=== PATIENT | female | born 1965 | race Caucasian/White ===

== ENCOUNTER 2018-11-11 02:03 | Emergency (ER) | payer BC ==
--- NOTE | 2018-11-11 02:51 | ER ---
Nurse's Notes [facility] Name: Mary Casas Age: 53 yrs Sex: Female : 1965 Arrival Date: 11/11/2018 Time: 02:04 Bed 16 Private MD: Brandon Botello V Diagnosis: Laceration of extensor muscle, fascia and tendon of left thumb at wrist and hand level Presentation: 11/11 02:07 Presenting complaint: Patient states: she tripped walking up her driveway and fell with aa1 a bottle in her hand and cut the top of her L thumb. Laceration noted with bleeding controlled. Transition of care: patient was not received from another setting of care. Complicating Factors: There are no complicating factors for this patient. Onset of symptoms was November 11, 2018. Risk Assessment: Do you want to hurt yourself or someone else? Patient reports no desire to harm self or others. Initial Sepsis Screen: Does the patient meet any 2 criteria? No. Patient's initial sepsis screen is negative. Does the patient have a suspected source of infection? No. Patient's initial sepsis screen is negative. Care prior to arrival: None. 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 - Social history:: Smoking status: Patient/guardian denies using tobacco, Patient uses alcohol, only on a social basis. - Ebola Screening: : No symptoms or risks identified at this time. Screenin:10 Abuse screen: Denies threats or abuse. Denies injuries from another. Nutritional aa1 screening: No deficits noted. Tuberculosis screening: No symptoms or risk factors identified. Fall Risk None identified. Assessment: 02:10 General: Appears in no apparent distress. comfortable, Behavior is cooperative, aa1 appropriate for age, anxious, crying. Pain: Denies pain. Neuro: Level of Consciousness is awake, alert, obeys commands, Oriented to person, place, time, situation. Respiratory: Airway is patent Respiratory effort is even, unlabored, Respiratory pattern is regular, symmetrical. GI: No signs and/or symptoms were reported involving the gastrointestinal system. : No signs and/or symptoms were reported regarding the genitourinary system. EENT: No signs and/or symptoms were reported regarding the EENT system. Derm: Skin is intact, is healthy with good turgor, Skin is pink, warm \T\ dry. Musculoskeletal: Circulation, motion, and sensation intact. Capillary refill < 3 seconds, Range of motion: intact in all extremities. Injury Description: Laceration sustained to dorsal aspect of proximal phalanx of left thumb is clean, 2.6 to 7.5 cm long, not bleeding. 03:12 Reassessment: Patient appears in no apparent distress at this time. Patient is alert, aa1 oriented x 3, equal unlabored respirations, skin warm/dry/pink. Discussed d/c \T\ f/u instructions with pt; denies questions or concerns at this time. Ambulatory to lobby with steady gait Patient states feeling better. Vital Signs: 02:07 BP 154 / 93; Pulse 93; Resp 20; Temp 98.4; Pulse Ox 97% on R/A; Weight 83.91 kg; Height aa1 5 ft. 4 in. (162.56 cm); Pain 0/10; 03:12 BP 140 / 71; Pulse 87; Resp 18; Pulse Ox 99% on R/A; Pain 0/10; aa1 02:07 Body Mass Index 31.75 (83.91 kg, 162.56 cm) aa1 ED Course: 02:04 Patient arrived in ED. es 02:05 Brandon Botello MD is Private Physician. es 02:07 Arm band placed on right wrist. Patient placed in an exam room, on a stretcher. aa1 02:10 Patient has correct armband on for positive identification. Bed in low position. Call aa1 light in reach. Pulse ox on. NIBP on. 02:22 Arie Mckeon MD is Attending Physician. tw4 02:25 Tere Villalobos, EHSAN is Primary Nurse. aa1 02:31 Triage completed. aa1 02:34 Hand Right 2 View XRAY In Process Unspecified. EDMS 02:49 Brandon Botello MD is Referral Physician. tw4 03:00 Assist provider with laceration repair on dorsal aspect of proximal phalanx of left aa1 thumb that was between 2.6 to 7.5 cm using Steri-strips. Set up tray. Performed by Arie Mckeon MD Patient tolerated well. Patient did not have IV access during this emergency room visit. Administered Medications: No medications were administered Outcome: 02:50 Discharge ordered by . tw4 03:15 Discharged to home ambulatory, with friend. aa1 03:15 Condition: good 03:15 Discharge instructions given to patient, Instructed on discharge instructions, follow up and referral plans. wound care, Demonstrated understanding of instructions, follow-up care, wound care. 03:15 Patient left the ED. aa1 Signatures: Dispatcher [employer] Tere Green, RN RN aa1 Marsha Zabala Terrence, MD MD tw4
--- NOTE | 2018-11-11 02:52 | EDPHYS ---
Physician Documentation [facility] Name: Mary Casas Age: 53 yrs Sex: Female : 1965 Arrival Date: 11/11/2018 Time: 02:04 Bed 16 Private MD: Brandon Botello V ED Physician Arie Mckeon HPI: 11/11 04:08 This 53 yrs old Female presents to ER via Ambulatory with complaints of tw4 Laceration To Hand. 04:08 The patient has a laceration related to: falling from a standing position, occurred on tw4 a street or driveway. The laceration(s) is(are) located on the palmar aspect of proximal phalanx of left thumb. Onset: The symptoms/episode began/occurred today. Associated signs and symptoms: The patient has no apparent associated signs or symptoms. The patient has not experienced similar symptoms in the past. 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 - Social history:: Smoking status: Patient/guardian denies using tobacco, Patient uses alcohol, only on a social basis. - Ebola Screening: : No symptoms or risks identified at this time. ROS: 04:08 Constitutional: Negative for fever, chills, and weight loss, Eyes: Negative for injury, tw4 pain, redness, and discharge, Cardiovascular: Negative for chest pain, palpitations, and edema, Respiratory: Negative for shortness of breath, cough, wheezing, and pleuritic chest pain, Abdomen/GI: Negative for abdominal pain, nausea, vomiting, diarrhea, and constipation, Back: Negative for injury and pain. 04:08 MS/extremity: Positive for laceration. Exam: 04:08 Constitutional: This is a well developed, well nourished patient who is awake, alert, tw4 and in no acute distress. Head/Face: Normocephalic, atraumatic. Chest/axilla: Normal chest wall appearance and motion. Nontender with no deformity. No lesions are appreciated. Cardiovascular: Regular rate and rhythm with a normal S1 and S2. No gallops, murmurs, or rubs. Normal PMI, no JVD. No pulse deficits. Respiratory: Lungs have equal breath sounds bilaterally, clear to auscultation and percussion. No rales, rhonchi or wheezes noted. No increased work of breathing, no retractions or nasal flaring. Abdomen/GI: Soft, non-tender, with normal bowel sounds. No distension or tympany. No guarding or rebound. No evidence of tenderness throughout. Neuro: Awake and alert, GCS 15, oriented to person, place, time, and situation. Cranial nerves II-XII grossly intact. Motor strength 5/5 in all extremities. Sensory grossly intact. Cerebellar exam normal. Normal gait. 04:08 Musculoskeletal/extremity: Extremities: noted in the palmar aspect of proximal phalanx of left thumb: laceration. Vital Signs: 02:07 BP 154 / 93; Pulse 93; Resp 20; Temp 98.4; Pulse Ox 97% on R/A; Weight 83.91 kg; Height aa1 5 ft. 4 in. (162.56 cm); Pain 0/10; 03:12 BP 140 / 71; Pulse 87; Resp 18; Pulse Ox 99% on R/A; Pain 0/10; aa1 02:07 Body Mass Index 31.75 (83.91 kg, 162.56 cm) aa1 MDM: 02:22 Patient medically screened. tw4 04:08 Differential diagnosis: superficial laceration. Data reviewed: vital signs, nurses tw4 notes. Data interpreted: Pulse oximetry: Interpretation: normal. Counseling: I had a detailed discussion with the patient and/or guardian regarding: the historical points, exam findings, and any diagnostic results supporting the discharge/admit diagnosis. Special discussion: I discussed with the patient/guardian in detail that at this point there is no indication for admission to the hospital. It is understood, however, that if the symptoms persist or worsen the patient needs to return immediately for re-evaluation. 11/11 02:17 Order name: Hand Right 2 View XRAY tw4 Administered Medications: No medications were administered Disposition: 11/11/18 02:50 Discharged to Home. Impression: Laceration of extensor muscle, fascia and tendon of left thumb at wrist and hand level. - Condition is Stable. - Discharge Instructions: Laceration Care, Adult. - Medication Reconciliation Form, Thank You Letter, Antibiotic Education, Prescription Opioid Use form. - Follow up: Brandon Botello MD; When: Upon discharge from the Emergency Department; Reason: If symptoms return, Recheck today's complaints, Continuance of care. - Problem is new. - Symptoms have improved. Signatures: Dispatcher [employer] Tere Green RN RN aa1 Arie Mckeon MD MD tw4 Corrections: (The following items were deleted from the chart) 03:15 02:50 11/11/2018 02:50 Discharged to Home. Impression: Laceration of extensor muscle, aa1 fascia and tendon of left thumb at wrist and hand level. Condition is Stable. Forms are Medication Reconciliation Form, Thank You Letter, Antibiotic Education, Prescription Opioid Use. Follow up: Brandon Botello; When: Upon discharge from the Emergency Department; Reason: If symptoms return, Recheck today's complaints, Continuance of care. Problem is new. Symptoms have improved. tw4
--- NOTE | 2018-11-11 11:39 | RAD REPORT ---
EXAM DESCRIPTION: RAD - Hand Right 2 View - 11/11/2018 2:33 am CLINICAL HISTORY: Left hand left hand injury FINDINGS: Bandage overlies the left thumb obscuring detail somewhat. No fracture or dislocation seen. Limited two-view series
== END 2018-11-11 03:15 | disposition home or self-care (01) ==
LOC: ER 02:03
PROC: 0JQK0ZZ Repair Left Hand Subcutaneous Tissue and Fascia, Open Approach (ICD-10-PCS; principal; 2018-11-11)
DX: S66.222A Laceration of extensor muscle, fascia and tendon of left thumb at wrist and hand level, initial encounter (principal); W19.XXXA Unspecified fall, initial encounter; Y93.9 Activity, unspecified; Y92.410 Unspecified street and highway as the place of occurrence of the external cause; E03.9 Hypothyroidism, unspecified; Z88.5 Allergy status to narcotic agent
CPT/HCPCS: 99283

== ENCOUNTER 2019-08-31 19:31 | Emergency (ER) | payer BC, SELFPAY ==
--- OUTSIDE RECORDS SUMMARY | 2019-08-31 19:34 | XMS REPORT | Continuity of Care Document ---
:1965 Author Organization [facility] t Address [address] [place] [address] Care Team Providers Name Role Phone Unavailable Unavailable Unavailable Payers Payer Name Policy Type Policy Number Effective Date Expiration Date S ource Problems This patient has no known problems. Allergies, Adverse Reactions, Alerts Allergy Allergy Status Severity Reaction(s) Onset Inactive Treating Comm ents Source Name Type Date Date Clinician No Known DA Active U 2018-03 SON Allergjimmy 2-13 Tila s 00:00: d 00 [facility] Medications This patient has no known medications. Procedures This patient has no known procedures. Results Test Description Test Time Test Comments Results Result Comments Source SURG 2019-03-18 11:14:00 RUN DATE: 03/18/19 SON [place] - TRACY PAGE 1 RUN TIME: 1114 Specimen Inquiry RUN USER: INTERFACE PATIENT: MAURILIO GORDON LOC: YANIRA Mathews #: [id number] AGE/SX: 53/F [facility]: Jessica Kumar : [birth year] BED: 1 DIS: 03/15/19 STATUS: DIS IN TLOC: SPEC #: [id number] RECD: 03/14/19 STATUS: WAYNE REQ #: [id number] FABI: 03/13/[address]: Jessica Kumar MD ENTERED: 03/14/19 SP TYPE: SURG OTHR DR: ORDERED: SURG PATH LVL 5 HISTOLOGY: TISSUE ID BLK PCS LORA LEV PROCEDURE DISPOSITION ____ ___ ___ ___ CERVIX A 1 1 PROCEDURES: SURG PATH LVL 5 (03/14/19-1509) TISSUES: A. CERVIX - CERVIX, UTERUS, BILATERAL FALLOPIAN TUBES BILATERAL OVARIES CLINICAL HISTORY EXCESSIVE/FREQ/IRREG MENSES-N92.1; LEIOMYOMA-D25.1 CPT CODES CPT CODE(S): 36171 , , , , , , FINAL DIAGNOSIS Uterus, bilateral fallopian tubes and ovaries, hysterectomy and bilateral salpingo-oophorectom y: ECTOCERVIX, NEGATIVE FOR VIRAL CYTOPATHIC EFFECT ENDOCERVIX WITH CHRONIC INFLAMMATION ENDOMETRIUM, INACTIVE AND ULCERATED MULTIPLE INTRAMURAL AND SUBSEROSAL LEIOMYOMATA FALLOPIAN TUBE WITH SIMPLE PARATUBAL CYST BILATERAL OVARIES WITH FOLLICULAR CYSTS, ONE WITH AN OVARIAN LEIOMYOMA NEGATIVE FOR MALIGNANCY GROSS DESCRIPTION Cervix, uterus, bilateral fallopian tubes and bilateral ovaries. Received in formalin is a 737.7-gram hysterectomy specimen and include a detached cervix (3.7 x 2.5 x 2.2 cm, 14.4 grams), an enlarged, deformed uterine corpus (12.0 x 11.0 x 9.0 cm, 503 grams), a separate large chin nodule/fibroid (9.0 x 6.5 x 5.7 cm, 204.1 grams), a separate longer segment of fallopian tube (5.0 x 1.0 x 0.8 cm, 2.4 grams), a separate short segment of fallopian tube (3.5 x 1.2 x 0.8 cm, 1.9 grams), a separate larger ovary (3.2 x 2.5 x 1.7 cm, 7.9 grams), and a separate smaller ovary (2.5 x 2.0 x 1.3 cm, 4.0 grams). The serosal surface is chin-brown, generally smooth and glistening. The CONTINUED ON NEXT PAGE RUN DATE: 03/18/19 [facility] PAGE 2 RUN TIME: 1114 Specimen Inquiry RUN USER: INTERFACE SPEC #: [id number] PATIENT: MAURILIO GORDON #[id number] (Continued)--------- --- GROSS DESCRIPTION (Continued) amputated cervix has a chin exocervix and a pinpoint os, 0.2 cm. The uterine corpus is markedly enlarged and distorted. The endometrial cavity measures 2.5 cm from cornu to cornu by 5.0 cm in length with a slightly hemorrhagic endometrium, 0.2 cm. The myometrium is maximally 5.0 cm in thickness and contains approximately 10-15 intramural and subserosal nodules, the largest measures 4.5 cm in greatest dimension. Except for a few nodules with focal areas with slightly gritty cut-surfaces, the majority of the nodules have homogeneous dense chin fibrous cut surfaces with the whorled appearance and without hemorrhage or necrosis. The separate large nodule/fibroid is serially sectioned and the cut surface is dense, rubbery to firm, chin with the whorled appearance and without hemorrhage or necrosis. The longer segment of fallopian tube is slightly tortuous and has a patent lumen and is grossly unremarkable. The shorter segment of fallopian tube has a patent lumen and an adjacent paratubal cyst, 0.6 cm filled with translucent non-viscous fluid and is otherwise unremarkable. The larger detached ovary contains a few simple cysts, the largest measures 1.5 cm in greatest dimension, filled with translucent non-viscous fluid and a dense white-chin cyst, 1.2 cm in greatest dimension. The smaller detached ovary contains a few simple cysts, the largest measures 1.2 cm in greatest dimension, filled with translucent non-viscous fluid and a dense white-chin cyst, 1.0 cm in greatest dimension. ba/nr Section code: A1-A2 Cervix A3-A5 Anterior endometrium/myometri um A6-A7 Posterior endometrium/myometri um A8-A9 Intramural nodules with focal gritty areas A10-A17 Multiple intramural and subserosal nodules A18-A20 Separate large nodule/fibroid A21-A22 Longer fallopian tube and fimbria A23-A24 [place] fallopian tube and fimbria A25-A26 Larger ovary A27-A28 Smaller ovary Grossing performed at [facility] Pathology, [facility] [facility], [address], [place] [address]. [employer] Supervisor: Lane Matson M.D. MICROSCOPIC DESCRIPTION Cervix, uterus, bilateral fallopian tubes and bilateral ovaries. Sections demonstrate unremarkable ectocervix with no evidence of viral cytopathic effect. Chronic inflammation involves the endocervical glands. The endometrium is focally ulcerated with inactive endometrial glands. Multiple intramural leiomyomata are identified, some with ancient change, hyalinization, and calcification. Bilateral fallopian tubes have unremarkable fimbria and CONTINUED ON NEXT PAGE RUN DATE: 03/18/19 [facility] PAGE 3 RUN TIME: 1114 Specimen Inquiry RUN USER: INTERFACE SPEC #: [id number]:[id number] PATIENT: HEIDIMAURILIO #[id number] (Continued)--------- --- MICROSCOPIC DESCRIPTION (Continued) lumina. A simple paratubal cyst is identified on one tube. Both ovaries demonstrate follicular cysts, one ovary demonstrates an ovarian leiomyoma. There is no evidence of malignancy. /cm Signed SIGNATURE ON FILE Ruddy Mosley 03/18/19 1114 END OF REPORT GLUCOSE BEDSIDE TESTING 2019-03-15 17:10:00 Test Item Value Reference Range Interpretation Comme nts GLUCOSE BEDSIDE TESTING (test code = GLUBED) 117 mg/dL 70-110 H GLUCOSE BEDSIDE [id number] 07:15:00 Test Item Value Reference Range Interpretation Comments GLUCOSE BEDSIDE TESTING (test code 136 mg/dL 70-110 H = GLUBED) GLUCOSE BEDSIDE [id number] 00:32:00 Test Item Value Reference Range Interpretation Comments GLUCOSE BEDSIDE TESTING (test code 125 mg/dL 70-110 H = GLUBED) GLUCOSE BEDSIDE [id number] 16:30:00 Test Item Value Reference Range Interpretation Comments GLUCOSE BEDSIDE TESTING (test code 124 mg/dL 70-110 H = GLUBED) GLUCOSE BEDSIDE [id number] 11:29:00 Test Item Value Reference Range Interpretation Comments GLUCOSE BEDSIDE TESTING (test code 129 mg/dL 70-110 H = GLUBED) GLUCOSE BEDSIDE [id number] 07:25:00 Test Item Value Reference Range Interpretation Comments GLUCOSE BEDSIDE TESTING (test code 149 mg/dL 70-110 H = GLUBED) CBC W/AUTO [id number] 07:04:00 Test Item Value Reference Range Interpretation Comments WHITE BLOOD CELL (test code = 13.5 K/mm3 3.5-11.0 H WBC) RED BLOOD CELL (test code = RBC) 3.63 M/mm3 4.70-6.10 L HEMOGLOBIN (test code = HGB) 10.4 G/DL 10.4-14.9 N HEMATOCRIT (test code = HCT) 33.2 % 31.5-44.1 N MEAN CELL VOLUME (test code = 91.5 Fl 84.5-98.6 N MCV) MEAN CELL HGB (test code = MCH) 28.7 pg 27.0-34.2 N MEAN CELL HGB CONCETRATION (test 31.3 G/DL 31.5-34.0 L code = MCHC) RED CELL DISTRIBUTION WIDTH (test 14.8 SD 11.5-14.5 H code = RDW) PLATELET COUNT (test code = PLT) 312.0 K/mm3 150-450 N MEAN PLATELET VOLUME (test code = 10.50 fL 7.0-10.5 N MPV) NEUTROPHIL % (test code = NT%) 70.2 % 40-76 N LYMPHOCYTE % (test code = LY%) 20.2 % 20.5-51.1 L MONOCYTE % (test code = MO%) 9.2 % 1.7-9.3 N EOSINOPHIL % (test code = EO%) 0.2 % 0.0-6.0 N BASOPHIL % (test code = BA%) 0.2 % 0.0-2.0 N NEUTROPHIL # (test code = NT#) 9.48 K/mm3 1.8-7.6 H LYMPHOCYTE # (test code = LY#) 2.7 K/mm3 0.6-3.2 N MONOCYTE # (test code = MO#) 1.2 K/mm3 0.3-1.1 H EOSINOPHIL # (test code = EO#) 0.0 K/mm3 0.0-0.4 N BASOPHIL # (test code = BA#) 0.0 K/mm3 0.0-0.1 N MANUAL DIFF REQUIRED (test code = NO DIFF/SCN CRITERIA MDIFF) GLUCOSE BEDSIDE [id number] 02:41:00 Test Item Value Reference Range Interpretation Comments GLUCOSE BEDSIDE TESTING (test code 113 mg/dL 70-110 H = GLUBED) GLUCOSE BEDSIDE [id number] 20:36:00 Test Item Value Reference Range Interpretation Comments GLUCOSE BEDSIDE TESTING (test code 158 mg/dL 70-110 H = GLUBED) GLUCOSE BEDSIDE [id number] 15:38:00 Test Item Value Reference Range Interpretation Comments GLUCOSE BEDSIDE TESTING (test code 220 mg/dL 70-110 H = GLUBED) GLUCOSE BEDSIDE [id number] 06:42:00 Test Item Value Reference Range Interpretation Comments GLUCOSE BEDSIDE TESTING (test code 229 mg/dL 70-110 H = GLUBED) URINALYSIS [id number] 15:44:00 Test Item Value Reference Range Interpretation Comments UA GLUCOSE DIPSTICK (test NEGATIVE mg/dL NEG code = DGLUU) UA BILIRUBIN DIPSTICK (test NEGATIVE mg/dL NEG code = BILU) UA KETONE DIPSTICK (test code NEGATIVE mg/dL NEG = KETU) UA SPECIFIC GRAVITY (test 1.010 SG 1.005-1.030 code = SGU) UA BLOOD DIPSTICK (test code NEGATIVE mg/DL NEG = LUBA) UA PH DIPSTICK (test code = 7.0 pH UNITS 5.0-7.0 MANOJ) UA PROTEIN DIPSTICK (test NEGATIVE mg/dL NEG code = PROU) UA UROBILINIOGEN DIPSTICK 0.2 mg/dL <2.0 (test code = URO) UA NITRITE DIPSTICK (test NEGATIVE SCREEN NEG code = FAIZA) UA LEUKOCYTE ESTERASE TRACE Leuk/mcL NEGATIVE A DIPSTICK (test code = LEUU) Urine Specimen Type: Clean CatchUR HCG [id number] 15:44:00 Test Item Value Reference Range Interpretation Comments UR HCG QUAL (test code = HCGQLU) NEGATIVE NEGATIVE Urine Specimen Type: Clean CatchURINALYSIS [id number] 15:01:00 Test Item Value Reference Range Interpretation Comments UA GLUCOSE DIPSTICK (test NEGATIVE mg/dL NEG code = DGLUU) UA BILIRUBIN DIPSTICK (test NEGATIVE mg/dL NEG code = BILU) UA KETONE DIPSTICK (test code NEGATIVE mg/dL NEG = KETU) UA SPECIFIC GRAVITY (test 1.010 SG 1.005-1.030 code = SGU) UA BLOOD DIPSTICK (test code NEGATIVE mg/DL NEG = LUBA) UA PH DIPSTICK (test code = 7.0 pH UNITS 5.0-7.0 MANOJ) UA PROTEIN DIPSTICK (test NEGATIVE mg/dL NEG code = PROU) UA UROBILINIOGEN DIPSTICK 0.2 mg/dL <2.0 (test code = URO) UA NITRITE DIPSTICK (test NEGATIVE SCREEN NEG code = FAIZA) UA LEUKOCYTE ESTERASE TRACE Leuk/mcL NEGATIVE A DIPSTICK (test code = LEUU) Urine Specimen Type: Clean CatchUR HCG [id number] 15:01:00 Test Item Value Reference Range Interpretation Comments UR HCG QUAL (test code = HCGQLU) NEGATIVE Urine Specimen Type: Clean CatchCBC W/AUTO [id number] 14:33:00 Test Item Value Reference Range Interpretation Comments WHITE BLOOD CELL (test code = 10.6 K/mm3 3.5-11.0 N WBC) RED BLOOD CELL (test code = RBC) 4.44 M/mm3 4.70-6.10 L HEMOGLOBIN (test code = HGB) 12.9 G/DL 10.4-14.9 N HEMATOCRIT (test code = HCT) 40.1 % 31.5-44.1 N MEAN CELL VOLUME (test code = 90.3 Fl 84.5-98.6 N MCV) MEAN CELL HGB (test code = MCH) 29.1 pg 27.0-34.2 N MEAN CELL HGB CONCETRATION (test 32.2 G/DL 31.5-34.0 N code = MCHC) RED CELL DISTRIBUTION WIDTH (test 14.5 SD 11.5-14.5 N code = RDW) PLATELET COUNT (test code = PLT) 389.0 K/mm3 150-450 N MEAN PLATELET VOLUME (test code = 9.70 fL 7.0-10.5 N MPV) NEUTROPHIL % (test code = NT%) 55.2 % 40-76 N LYMPHOCYTE % (test code = LY%) 35.7 % 20.5-51.1 N MONOCYTE % (test code = MO%) 6.4 % 1.7-9.3 N EOSINOPHIL % (test code = EO%) 2.5 % 0.0-6.0 N BASOPHIL % (test code = BA%) 0.2 % 0.0-2.0 N NEUTROPHIL # (test code = NT#) 5.86 K/mm3 1.8-7.6 N LYMPHOCYTE # (test code = LY#) 3.8 K/mm3 0.6-3.2 H MONOCYTE # (test code = MO#) 0.7 K/mm3 0.3-1.1 N EOSINOPHIL # (test code = EO#) 0.3 K/mm3 0.0-0.4 N BASOPHIL # (test code = BA#) 0.0 K/mm3 0.0-0.1 N MANUAL DIFF REQUIRED (test code = NO DIFF/SCN CRITERIA MDIFF)
[2019-08-31] MEDS ORDERED: ONDANSETRON 4 MG/2 ML VIAL ONE (20:28)
[2019-08-31 21:08] LABS: Urine Blood 2+ (NEG); Urine Glucose NEGATIVE (NEG); Urine Protein 1+ (NEG); Urine pH 7.5 (5.0-7.0)
[2019-08-31 21:29] LABS: Absolute Lymphocytes (CBC) 1.3 K/uL (0.7-4.9); Basophils % 0.5 % (0-1.3); Hematocrit 43.3 % (36.0-45.0); Lymphocytes % 14.3 % (15.3-44.8); MPV 8.8 fL (7.6-11.3); RBC Red Blood Cell Count 4.67 M/uL (3.86-4.86)
[2019-08-31 21:55] LABS: ALT/SGPT 34 U/L (12-78); Albumin 3.6 g/dL (3.4-5.0); Alkaline Phosphatase 95 U/L (45-117); BUN Blood Urea Nitrogen 12 mg/dL (7-18); Bicarbonate 31 mmol/L (21-32); Bilirubin Direct < 0.1 mg/dL (0-0.2); Bilirubin Total 0.3 mg/dL (0.2-1.0); Glucose Level 105 mg/dL (74-106); Lipase 97 U/L (73-393); Sodium Level 144 mmol/L (136-145)
[2019-08-31 22:00] LABS: AST/SGOT 24 U/L (15-37); Potassium 3.7 mmol/L (3.5-5.1)
[2019-08-31] MEDS ORDERED: MORPHINE 4 MG/ML SYR ONE (22:34)
--- NOTE | 2019-09-01 01:48 | EDPHYS ---
Physician Documentation [facility] Name: Mary Casas Age: 54 yrs Sex: Female : 1965 Arrival Date: 08/31/2019 Time: 19:33 Bed 18 Private MD: ED Physician Otto Henderson HPI: 08/30 20:21 This 54 yrs old Female presents to ER via Ambulatory with complaints of Pain mh7 On Left Side. 20:21 The patient presents with abdominal pain in the left lower quadrant. Onset: The mh7 symptoms/episode began/occurred just prior to arrival, today. The symptoms do not radiate. Associated signs and symptoms: Pertinent positives: nausea, Pertinent negatives: anorexia, blood in stools, chest pain, constipation, diarrhea, dysuria, fever, headache, hematuria, palpitations, shortness of breath, vaginal discharge, vomiting, vomiting blood. The symptoms are described as intermittent, vague, waxing/waning. Modifying factors: The symptoms are alleviated by nothing, the symptoms are aggravated by nothing. Severity of pain: At its worst the pain was moderate just prior to arrival, today, in the emergency department the pain has improved markedly. Historical: - Allergies: 20:10 Percocet; ll1 20:10 Hydrocodone-Acetaminophen; ll1 - PMHx: 20:10 Hypothyroidism; ll1 - PSHx: 20:10 ; Hysterectomy; Cholecystectomy; ll1 - Immunization history:: Adult Immunizations. - Social history:: Smoking status: Patient denies any tobacco usage or history of. Patient/guardian denies using alcohol, street drugs, tobacco products. ROS: 20:21 Constitutional: Negative for fever, chills, and weight loss, Eyes: Negative for injury, mh7 pain, redness, and discharge, ENT: Negative for injury, pain, and discharge, Neck: Negative for injury, pain, and swelling, Cardiovascular: Negative for chest pain, palpitations, and edema, Respiratory: Negative for shortness of breath, cough, wheezing, and pleuritic chest pain, Back: Negative for injury and pain, : Negative for injury, bleeding, discharge, and swelling, MS/Extremity: Negative for injury and deformity, Skin: Negative for injury, rash, and discoloration, Neuro: Negative for headache, weakness, numbness, tingling, and seizure, Psych: Negative for depression, anxiety, suicide ideation, homicidal ideation, and hallucinations, Allergy/Immunology: Negative for hives, rash, and allergies, Endocrine: Negative for neck swelling, polydipsia, polyuria, polyphagia, and marked weight changes, Hematologic/Lymphatic: Negative for swollen nodes, abnormal bleeding, and unusual bruising. Exam: 20:21 Constitutional: This is a well developed, well nourished patient who is awake, alert, mh7 and in no acute distress. Head/Face: Normocephalic, atraumatic. Eyes: Pupils equal round and reactive to light, extra-ocular motions intact. Lids and lashes normal. Conjunctiva and sclera are non-icteric and not injected. Cornea within normal limits. Periorbital areas with no swelling, redness, or edema. ENT: Nares patent. No nasal discharge, no septal abnormalities noted. Tympanic membranes are normal and external auditory canals are clear. Oropharynx with no redness, swelling, or masses, exudates, or evidence of obstruction, uvula midline. Mucous membranes moist. Neck: Trachea midline, no thyromegaly or masses palpated, and no cervical lymphadenopathy. Supple, full range of motion without nuchal rigidity, or vertebral point tenderness. No Meningismus. Chest/axilla: Normal chest wall appearance and motion. Nontender with no deformity. No lesions are appreciated. Cardiovascular: Regular rate and rhythm with a normal S1 and S2. No gallops, murmurs, or rubs. Normal PMI, no JVD. No pulse deficits. Respiratory: Lungs have equal breath sounds bilaterally, clear to auscultation and percussion. No rales, rhonchi or wheezes noted. No increased work of breathing, no retractions or nasal flaring. 20:21 Back: No spinal tenderness. No costovertebral tenderness. Full range of motion. Skin: Warm, dry with normal turgor. Normal color with no rashes, no lesions, and no evidence of cellulitis. MS/ Extremity: Pulses equal, no cyanosis. Neurovascular intact. Full, normal range of motion. Neuro: Awake and alert, GCS 15, oriented to person, place, time, and situation. Cranial nerves II-XII grossly intact. Motor strength 5/5 in all extremities. Sensory grossly intact. Cerebellar exam normal. Normal gait. Psych: Awake, alert, with orientation to person, place and time. Behavior, mood, and affect are within normal limits. 20:21 Abdomen/GI: Inspection: abdomen appears normal, Bowel sounds: normal, in all quadrants, Palpation: moderate abdominal tenderness, in the left lower quadrant, Rectal exam: the exam is deferred, because of patient request, Indicators: McBurney's point is not tender, Hampton's sign is negative, Rovsing's sign is negative, Obturator sign is negative, Psoas sign is negative, Liver: no appreciated palpable abnormalities, Hernia: not appreciated. 20:21 : CVA tenderness, is absent, Pelvic Exam: The exam is refused by the patient/guardian. The risks and consequences are understood by the patient, Bladder: is normal, Rectal exam: is refused by patient or guardian. Vital Signs: 20:07 BP 143 / 79; Pulse 70; Resp 17; Temp 98.5; Pulse Ox 99% ; Pain 2/10; ll1 20:30 BP 126 / 80; Pulse 68; Resp 17; Pulse Ox 98% ; ll1 20:48 Weight 21.77 kg; ll1 21:18 BP 130 / 65; Pulse 71; Resp 17; Pulse Ox 99% ; ll1 22:00 BP 136 / 73; Pulse 74; Resp 17; Pulse Ox 98% ; ll1 23:20 BP 124 / 71; Pulse 76; Resp 16; Pulse Ox 98% ; ll1 07 01:00 BP 122 / 65; Pulse 72; Resp 16; Pulse Ox 93% ; vc 01:53 BP 111 / 92; Pulse 77; Resp 17; Pulse Ox 100% ; vc MDM: 08/30 20:14 Patient medically screened. [facility] 08/31 01:42 Differential diagnosis: bowel obstruction, diverticulitis, non-specific abd pain, 7 Pyelonephritis, Ureterolithiasis, urinary tract infection. Data reviewed: vital signs, nurses notes, lab test result(s), CBC, electrolytes, urinalysis, radiologic studies, CT scan. Data interpreted: classroom monitor: rate is 76 beats/min, rhythm is normal sinus rhythm, regular, Interpretation: normal rate, normal rhythm, Pulse oximetry: on room air is 98 %. Interpretation: normal. Counseling: I had a detailed discussion with the patient and/or guardian regarding: the historical points, exam findings, and any diagnostic results supporting the discharge/admit diagnosis, lab results, radiology results. Response to treatment: the patient's symptoms have resolved after treatment, the patient's blood pressure is in an acceptable range, mental status has returned to baseline, the patient no longer shows bradycardia, the patient is not short of breath, the patient is not tachycardic, the patient's pain is gone, the patient's temperature has normalized. 01:51 Refusal of service: The patient/guardian displays adequate decision making capability [facility] and despite a detailed discussion of alternatives, benefits, risks, and consequences refuses: Admission to the hospital for further work-up and treatment, Transfer. 08/30 20:15 Order name: Basic Metabolic Panel; Complete Time: 22:08 [facility] 08/30 20:15 Order name: CBC with Diff; Complete Time: 22: [facility] 08/30 20:15 Order name: Hepatic Function; Complete Time: 22:08 [facility] 08/30 20:15 Order name: Lipase; Complete Time: 22:08 [facility] 08/30 20:29 Order name: Urine Dipstick--Ancillary (enter results); Complete Time: 21:35 [facility] 08/30 20:15 Order name: IV Saline Lock; Complete Time: 00:19 [facility] 08/30 20:15 Order name: Labs collected and sent; Complete Time: 00:19 [facility] 08/30 20:29 Order name: Urine --Ancillary (enter results); Complete Time: 21:35 [facility] 08/30 22:09 Order name: CT Abd/Pelvis - IV Contrast Only [facility] 08/31 01:40 Order name: Urine Culture [facility] Administered Medications: 08/30 22:37 Drug: morphine 4 mg {Note: 2mg SIVP given 2235 2mg SIVP given at 2255.} Route: IVP; 1 Site: right antecubital; 22:55 Follow up: Response: No adverse reaction; RASS: Alert and Calm (0) 1 23:43 Follow up: Response: No adverse reaction; Pain is decreased; RASS: Alert and Calm (0) [facility] 22:38 Drug: Zofran (Ondansetron) 4 mg Route: IVP; Site: right antecubital; 1 22:57 Follow up: Response: No adverse reaction; RASS: Alert and Calm (0) [facility] 08/31 01:52 Drug: LevaQUIN 500 mg Route: PO; vc 02:18 Follow up: Response: No adverse reaction vc Disposition: 09/01/19 01:46 Discharged to Home. Impression: Ureterolithiasis, Urinary tract infection, site not specified. - Condition is Stable. - Discharge Instructions: Kidney Stones, [id number], Urinary Tract Infection, Adult, [id number]. - Prescriptions for Zofran ODT 4 mg Oral tablet,disintegrating - place 1 tablet by TRANSLINGUAL route every 8 hours As needed; 10 tablet. ketorolac 10 mg Oral tablet - take 1 tablet by ORAL route every 8 hours As needed not to exceed 40 mg in 24hrs; 15 tablet. Levaquin 500 mg Oral Tablet - take 1 tablet by ORAL route once daily for 10 days; 10 tablet. Flomax 0.4 mg Oral Capsule, Sust. Release 24 hr - take 1 capsule by ORAL route once daily 1/2 hour following the same meal each day; 30 capsule. - Medication Reconciliation Form, Thank You Letter, Antibiotic Education, Prescription Opioid Use form. - Follow up: Private Physician; When: 1 - 2 days; Reason: Worsening of condition, Recheck today's complaints, Re-evaluation by your physician. Follow up: Fifi Jones MD; When: 1 - 2 days; Reason: Worsening of condition, Recheck today's complaints. - Problem is new. - Symptoms have improved. Signatures: Dispatcher [employer] [facility] Sophia Dunn RN RN vc Lewis, Lynsay, RN RN ll1 Otto Henderson MD MD mh7 Corrections: (The following items were deleted from the chart) 08/30 22:21 20:17 TEST, SERUM+SC.LAB.BRZ ordered. [facility] 08/31 02:18 01:46 09/01/2019 01:46 Discharged to Home. Impression: Ureterolithiasis; Urinary tract vc infection, site not specified. Condition is Stable. Forms are Medication Reconciliation Form, Thank You Letter, Antibiotic Education, Prescription Opioid Use. Follow up: Private Physician; When: 1 - 2 days; Reason: Worsening of condition, Recheck today's complaints, Re-evaluation by your physician. Follow up: Fifi Jones; When: 1 - 2 days; Reason: Worsening of condition, Recheck today's complaints. Problem is new. Symptoms have improved. mh7
--- NOTE | 2019-09-01 01:48 | ER ---
Nurse's Notes [facility] Name: Mary Casas Age: 54 yrs Sex: Female : 1965 Arrival Date: 08/31/2019 Time: 19:33 Bed 18 Private MD: Diagnosis: Ureterolithiasis;Urinary tract infection, site not specified Presentation: 08/30 20:07 Chief complaint: Patient states: Sudden onset of left sided abdominal pain today. Had ll1 nausea and sweating when pain began. Denies urinary symptoms. No fever. Coronavirus screen: Proceed with normal triage. Patient denies a cough. Patient denies shortness of breath or difficulty breathing. Patient denies measured and/or subjective temperature greater than 100.4F prior to today's visit. Patient denies travel on a cruise ship or to a country the [facility] currently lists as an affected area. Patient denies contact with known and/or suspected case of COVID-19. Ebola Screen: Patient denies travel to an Ebola-affected area in the 21 days before illness onset. Initial Sepsis Screen: Does the patient meet any 2 criteria? No. Patient's initial sepsis screen is negative. Risk Assessment: Do you want to hurt yourself or someone else? Patient reports no desire to harm self or others. Onset of symptoms was August 31, 2019. 20:07 Method Of Arrival: Ambulatory ll1 20:07 Acuity: ROSINA 3 ll1 Historical: - Allergies: 20:10 Percocet; ll1 20:10 Hydrocodone-Acetaminophen; ll1 - PMHx: 20:10 Hypothyroidism; ll1 - PSHx: 20:10 ; Hysterectomy; Cholecystectomy; ll1 - Immunization history:: Adult Immunizations. - Social history:: Smoking status: Patient denies any tobacco usage or history of. Patient/guardian denies using alcohol, street drugs, tobacco products. Screenin:11 Abuse screen: Denies threats or abuse. Nutritional screening: No deficits noted. ll1 Tuberculosis screening: No symptoms or risk factors identified. Fall Risk IV access (20 points). Total Price Fall Scale indicates No Risk (0-24 pts). Assessment: 20:10 General: Appears uncomfortable, Behavior is calm, cooperative, appropriate for age. ll1 Pain: Complains of pain in left lower quadrant Quality of pain is described as aching, Pain began suddenly, 4 hours ago. Is continuous. Neuro: No deficits noted. Cardiovascular: No deficits noted. Respiratory: No deficits noted. GI: Abdomen is flat, Bowel sounds present X 4 quads. Abd is soft and non tender X 4 quads. Reports lower abdominal pain, nausea. : No deficits noted. 21:10 Reassessment: Patient appears in no apparent distress at this time. No changes from ll1 previously documented assessment. Patient and/or family updated on plan of care and expected duration. Pain level reassessed. Patient is alert, oriented x 3, equal unlabored respirations, skin warm/dry/pink. 22:10 Reassessment: Patient appears in no apparent distress at this time. No changes from ll1 previously documented assessment. Patient and/or family updated on plan of care and expected duration. Pain level reassessed. Patient is alert, oriented x 3, equal unlabored respirations, skin warm/dry/pink. 08/31 00:00 Reassessment: Patient appears in no apparent distress at this time. Patient and/or vc family updated on plan of care and expected duration. Pain level reassessed. Patient is alert, oriented x 3, equal unlabored respirations, skin warm/dry/pink. Patient states symptoms have improved. 01:00 Reassessment: Patient appears in no apparent distress at this time. Patient and/or vc family updated on plan of care and expected duration. Pain level reassessed. Patient is alert, oriented x 3, equal unlabored respirations, skin warm/dry/pink. Patient states feeling better. 01:50 Reassessment: Patient appears in no apparent distress at this time. Patient and/or vc family updated on plan of care and expected duration. Pain level reassessed. Patient is alert, oriented x 3, equal unlabored respirations, skin warm/dry/pink. Vital Signs: 08/30 20:07 BP 143 / 79; Pulse 70; Resp 17; Temp 98.5; Pulse Ox 99% ; Pain 2/10; ll1 20:30 BP 126 / 80; Pulse 68; Resp 17; Pulse Ox 98% ; ll1 20:48 Weight 21.77 kg; ll1 21:18 BP 130 / 65; Pulse 71; Resp 17; Pulse Ox 99% ; ll1 22:00 BP 136 / 73; Pulse 74; Resp 17; Pulse Ox 98% ; ll1 23:20 BP 124 / 71; Pulse 76; Resp 16; Pulse Ox 98% ; ll1 08/31 01:00 BP 122 / 65; Pulse 72; Resp 16; Pulse Ox 93% ; vc 01:53 BP 111 / 92; Pulse 77; Resp 17; Pulse Ox 100% ; vc ED Course: 08/30 19:33 Patient arrived in ED. cl3 19:50 Otto Henderson MD is Attending Physician. 7 19:54 Zuly Charles, RN is Primary Nurse. ah 20:09 Triage completed. ll1 20:10 Arm band placed on Patient placed in an exam room, on a stretcher. ll1 22:00 No provider procedures requiring assistance completed. IV is patent, is intact, with ll1 fluids infusing freely, 20 G R AC present upon assuming patient care.. 22:11 Patient has correct armband on for positive identification. Bed in low position. Call ll1 light in reach. Side rails up X2. Report received from Zuly Charles RN. Pulse ox on. NIBP on. 23:49 CT Abd/Pelvis - IV Contrast Only In Process Unspecified. EDMS 08/31 00:53 Primary Nurse role handed off by Zuly Charles, RN 00:53 Sophia Dunn, EHSAN is Primary Nurse. vc 01:44 Fifi Jones MD is Referral Physician. [facility] 02:00 IV discontinued, intact, bleeding controlled, No redness/swelling at site. Pressure vc dressing applied. Administered Medications: 08/30 22:37 Drug: morphine 4 mg {Note: 2mg SIVP given 2235 2mg SIVP given at 2255.} Route: IVP; 1 Site: right antecubital; 22:55 Follow up: Response: No adverse reaction; RASS: Alert and Calm (0) 1 23:43 Follow up: Response: No adverse reaction; Pain is decreased; RASS: Alert and Calm (0) 1 22:38 Drug: Zofran (Ondansetron) 4 mg Route: IVP; Site: right antecubital; ll1 22:57 Follow up: Response: No adverse reaction; RASS: Alert and Calm (0) 1 08/31 01:52 Drug: LevaQUIN 500 mg Route: PO; vc 02:18 Follow up: Response: No adverse reaction vc Outcome: 01:46 Discharge ordered by MD. graham 01:50 Discharged to home ambulatory. vc 01:50 Condition: good 01:50 Discharge instructions given to patient, Instructed on discharge instructions, follow up and referral plans. medication usage, Demonstrated understanding of instructions, follow-up care, medications. 02:18 Patient left the ED. vc Signatures: Dispatcher [employer] EDMia Breen cl3 Sophia Dunn RN RN Zuly Charles RN RN Cari Corona RN RN ll1 Otto Henderson MD MD mh7 Corrections: (The following items were deleted from the chart) 08/30 22:57 22:37 morphine 4 mg IVP in right antecubital ll1 ll1
[2019-09-01] MEDS ORDERED: levoFLOXacin 500 MG TAB ONE (01:53)
[2019-09-01 02:30] VITALS: TEMP 98.5
[2019-09-01 02:38] VITALS: BP 111/92; O2SAT 100
--- NOTE | 2019-09-01 19:07 | RAD REPORT ---
EXAM DESCRIPTION: CT Abdomen and Pelvis With Intravenous Contrast CLINICAL HISTORY: The patient is 54 years old and is Female; ABD PAIN TECHNIQUE: Axial computed tomography images of the abdomen and pelvis with intravenous contrast. S agittal and coronal reformatted images were created and reviewed. This CT exam was performed using one or more of the following dose reduction techniques: automated exposure control, adjustment of t he mA and/or kV according to patient size, and/or use of iterative reconstruction technique. COMPARISON: CT of the abdomen May 16, 2016 FINDINGS: LUNG BASES: Unremarkable. No mass. No consolidation. ABDOMEN: LIVER: The liver is enlarged and diffusely fatty. GALLBLADDER AND BILE DUCTS: Surgical clips are present in the right upper quadrant, consistent wi th previous cholecystectomy. PANCREAS: No ductal dilation. No mass. SPLEEN: Unremarkable. ADRENALS: Unremarkable. No mass. KIDNEYS AND URETERS: Moderate right hydronephrosis and proximal hydroureter is present secondary to a 8 mm proximal right ureteral calculus. Mild left hydronephrosis and proximal hydroureter is pr esent secondary to a 4 mm proximal left ureteral calculus. Minimal stranding of the bilateral kidne ys and ureters is noted. STOMACH AND BOWEL: The stomach is distended with food contents. The small bowel is normal in scott iber. Stool is present throughout colon. Scattered colonic diverticula are noted without surrounding inflammation. There is no bowel obstruction. PELVIS: APPENDIX: The appendix is normal in caliber without surrounding inflammation. BLADDER: Unremarkable. No mass. REPRODUCTIVE: The patient is status post hysterectomy. ABDOMEN and PELVIS: INTRAPERITONEAL SPACE: Unremarkable. No free air. No significant fluid collection. BONES/JOINTS: No acute fracture. SOFT TISSUES: The soft tissues are normal. VASCULATURE: Unremarkable. No abdominal aortic aneurysm. LYMPH NODES: Unremarkable. No enlarged lymph nodes. IMPRESSION: 1. Moderate right hydronephrosis and proximal hydroureter is present secondary to a 8 mm proximal r ight ureteral calculus. 2. Mild left hydronephrosis and proximal hydroureter is present secondary to a 4 mm proximal left u reteral calculus. Electronically signed by: Matilda Lora MD 09/01/2019 12:38 AM CDT Due to temporary technical issues with the PACS/Fluency reporting system, reports are being signed by the in house radiologist without review as a courtesy to ensure prompt reporting. The interpreting r adiologist is fully responsible for the content of the report.
== END 2019-09-01 02:18 | disposition home or self-care (01) ==
LOC: ER 19:31
DX: N20.1 Calculus of ureter (principal); N39.0 Urinary tract infection, site not specified; E03.9 Hypothyroidism, unspecified; Z88.5 Allergy status to narcotic agent
CPT/HCPCS: 36415; 74177; 80048; 80076; 81003; 81025; 83690; 85025; 87086; 87088; 96374; 96375; 99284; J2405; Q9967

== ENCOUNTER 2019-10-21 00:49 | Emergency (ER) | payer SELFPAY, OTHER ==
--- OUTSIDE RECORDS SUMMARY | 2019-10-21 00:51 | XMS REPORT | Continuity of Care Document ---
:1965 Author Organization [facility] t Address [address] [place] [address] Care Team Providers Name Role Phone Lara VAUGHN Primary Care Physician Payers Payer Name Policy Type Policy Number Effective Date Expiration Date S ource Problems This patient has no known problems. Allergies, Adverse Reactions, Alerts Allergy Allergy Status Severity Reaction(s) Onset Inactive Treating Comm ents Source Name Type Date Date Clinician No Known DA Active U 2018-03 SON Allergie [address] s 00:00: d 00 [facility] Social History Social Habit Start Date Stop Date Quantity Comments Source Sex Assigned At MD [place] Medications Ordered Filled Start Stop Current Ordering Indication Dosage Frequency Signature Comments Components Source Medication Medication Date Date Medication? Clinician (SIG) Name Name lisinopril Yes 40mg Take 40 mg M D (PRINIVIL,Z 7-16 by mouth Jc rso ESTRIL) 40 18:35: daily. n mg tablet 30 pioglitazon Yes 1{tbl} Take 1 MD e-metFORMIN 7-16 tablet by And erso (ACTOPLUS 18:35: mouth n MET) 15-850 30 daily. Pt mg per unsure if tablet taking Actos or Actosplus. Will call to clarify cholecalcif Yes 1{capsu Take 1 M D ravindra, 7-16 le} capsule by Anderso vitamin D3, 18:35: mouth n 2,000 unit 30 daily. capsule atorvastati Yes 1{tbl} Take 1 MD n (LIPITOR) 7-16 tablet by And erso 20 mg 18:35: mouth n tablet 29 daily. pioglitazon Yes 30{tbl} Take 30 MD e (ACTOS) 7-16 tablets by Jc rso 30 mg 18:35: mouth n tablet 29 daily. Pt can't recall if sje's taking Actos or Actosplus. Will clarify sitaGLIPtin Yes 100mg Take 100 M D (JANUVIA) 3-01 mg by Anderso 100 mg 00:00: mouth n tablet 00 daily. metFORMIN Yes 1{tbl} Take 1 MD (GLUCOPHAGE 4-01 tablet by And erso ) 1000 mg 00:00: mouth n tablet 00 daily. Procedures This patient has no known procedures. Results Test Description Test Time Test Comments Results Result Comments Source SURG 2019-03-18 11:14:00 RUN DATE: 03/18/19 [facility] PAGE 1 RUN TIME: 1114 Specimen Inquiry RUN USER: INTERFACE PATIENT: MAURILIO GORDON LOC: YANIRA Mathews #: [id number] AGE/SX: 53/F ROOM: [facility] RE03/13/19REG DR: Jessica Kumar : 65 BED: 1 DIS: 03/15/19 STATUS: DIS IN TLOC: SPEC #: [id number] RECD: 03/14/19 STATUS: WAYNE REQ #: [id number] FABI: 03/13/[address]: Jessica Kumar MD ENTERED: 03/14/19 SP TYPE: SURG OTHR DR: ORDERED: SURG PATH LVL 5 HISTOLOGY: TISSUE ID BLK PCS LORA LEV PROCEDURE DISPOSITION ____ ___ ___ ___ CERVIX A 1 1 PROCEDURES: SURG PATH LVL 5 (03/14/19) TISSUES: A. CERVIX - CERVIX, UTERUS, BILATERAL FALLOPIAN TUBES BILATERAL OVARIES CLINICAL HISTORY EXCESSIVE/FREQ/IRREG MENSES-N92.1; LEIOMYOMA-D25.1 CPT CODES CPT CODE(S): 10756 , , , , , , FINAL [...] CONTINUED ON NEXT PAGE RUN DATE: 03/18/19 [facility] PAGE 2 RUN TIME: 1114 Specimen Inquiry RUN USER: INTERFACE SPEC #: [facility]:[id number] PATIENT: HEIDIMAURILIO #[id number] (Continued)--------- --- GROSS DESCRIPTION (Continued) amputated cervix [...] A21-A22 Longer fallopian tube and fimbria A23-A24 [place] fallopian tube and fimbria A25-A26 Larger ovary A27-A28 Smaller ovary Grossing performed at [facility] Pathology, [address] [place] [address], [address], [place], [place] [address]. Transferrer: Lane Matson M.D. MICROSCOPIC DESCRIPTION Cervix, uterus, [...] CONTINUED ON NEXT PAGE RUN DATE: 03/18/19 [facility] - LAB PAGE 3 RUN TIME: 1114 Specimen Inquiry RUN USER: INTERFACE SPEC #: [id number] PATIENT: HEIDIMAURILIO #[id number] (Continued)--------- --- MICROSCOPIC DESCRIPTION (Continued) lumina. A simple paratubal cyst is identified on one tube. Both ovaries demonstrate follicular cysts, one ovary demonstrates an ovarian leiomyoma. There is no evidence of malignancy. /cm Signed SIGNATURE ON FILE Rudyd Mosley 03/18/19 1114 END OF REPORT GLUCOSE BEDSIDE TESTING 2019-03-15 17:10:00 Test Item Value Reference Range Interpretation Comme nts GLUCOSE BEDSIDE TESTING (test code = GLUBED) 117 mg/dL 70-110 H GLUCOSE BEDSIDE [id number] 07:15:00 Test Item Value Reference Range Interpretation Comments GLUCOSE BEDSIDE TESTING (test code 136 mg/dL 70-110 H = GLUBED) GLUCOSE BEDSIDE [id number] 00:32:00 Test Item Value Reference Range Interpretation Comments GLUCOSE BEDSIDE TESTING (test code 125 mg/dL 70-110 H = GLUBED) GLUCOSE BEDSIDE [id number] 16:30:00 Test Item Value Reference Range Interpretation Comments GLUCOSE BEDSIDE TESTING (test code 124 mg/dL 70-110 H = GLUBED) GLUCOSE BEDSIDE [id number] 11:29:00 Test Item Value Reference Range Interpretation Comments GLUCOSE BEDSIDE TESTING (test code 129 mg/dL 70-110 H = GLUBED) GLUCOSE BEDSIDE [id number] 07:25:00 Test Item Value Reference Range Interpretation Comments GLUCOSE BEDSIDE TESTING (test code 149 mg/dL 70-110 H = GLUBED) CBC W/AUTO [id number] 07:04:00 Test Item Value Reference Range Interpretation [...] = NO DIFF/SCN CRITERIA MDIFF) GLUCOSE BEDSIDE [id number] 02:41:00 Test Item Value Reference Range Interpretation Comments GLUCOSE BEDSIDE TESTING (test code 113 mg/dL 70-110 H = GLUBED) GLUCOSE BEDSIDE [id number] 20:36:00 Test Item Value Reference Range Interpretation Comments GLUCOSE BEDSIDE TESTING (test code 158 mg/dL 70-110 H = GLUBED) GLUCOSE BEDSIDE [id number] 15:38:00 Test Item Value Reference Range Interpretation Comments GLUCOSE BEDSIDE TESTING (test code 220 mg/dL 70-110 H = GLUBED) GLUCOSE BEDSIDE [id number] 06:42:00 Test Item Value Reference Range Interpretation Comments GLUCOSE BEDSIDE TESTING (test code 229 mg/dL 70-110 H = GLUBED) URINALYSIS [id number] 15:44:00 Test Item Value Reference Range Interpretation Comments UA GLUCOSE DIPSTICK (test NEGATIVE mg/dL NEG code = DGLUU) UA BILIRUBIN DIPSTICK (test NEGATIVE mg/dL NEG code = BILU) UA KETONE DIPSTICK (test code NEGATIVE mg/dL NEG = KETU) UA SPECIFIC GRAVITY (test 1.010 SG 1.005-1.030 code = SGU) UA BLOOD DIPSTICK (test code NEGATIVE mg/DL NEG = LBUA) UA PH DIPSTICK (test code = 7.0 pH UNITS 5.0-7.0 MANOJ) UA PROTEIN DIPSTICK (test NEGATIVE mg/dL NEG code = PROU) UA UROBILINIOGEN DIPSTICK 0.2 mg/dL <2.0 (test code = URO) UA NITRITE DIPSTICK (test NEGATIVE SCREEN NEG code = FAIZA) UA LEUKOCYTE ESTERASE TRACE Leuk/mcL NEGATIVE A DIPSTICK (test code = LEUU) Urine Specimen Type: Clean CatchUR HCG [id number] 15:44:00 Test Item Value Reference Range Interpretation Comments UR HCG QUAL (test code = HCGQLU) NEGATIVE NEGATIVE Urine Specimen Type: Clean CatchURINALYSIS [id number] 15:01:00 Test Item Value Reference Range Interpretation [...] LEUU) Urine Specimen Type: Clean CatchUR HCG [id number] 15:01:00 Test Item Value Reference Range Interpretation Comments UR HCG QUAL (test code = HCGQLU) NEGATIVE Urine Specimen Type: Clean CatchCBC W/AUTO [id number] 14:33:00 Test Item Value Reference Range Interpretation [...]
[2019-10-21 01:54] LABS: Absolute Lymphocytes (CBC) 2.3 K/uL (0.7-4.9); Basophils % 0.5 % (0-1.3); Hematocrit 43.1 % (36.0-45.0); Lymphocytes % 32.2 % (15.3-44.8); RBC Red Blood Cell Count 4.74 M/uL (3.86-4.86)
[2019-10-21 02:04] LABS: ALT/SGPT 43 U/L (12-78); AST/SGOT 23 U/L (15-37); Albumin 3.5 g/dL (3.4-5.0); Alkaline Phosphatase 90 U/L (45-117); BUN Blood Urea Nitrogen 15 mg/dL (7-18); Bicarbonate 28 mmol/L (21-32); Bilirubin Direct < 0.1 mg/dL (0-0.2); Bilirubin Total 0.3 mg/dL (0.2-1.0); Glucose Level 118 mg/dL (74-106); Lipase 123 U/L (73-393); Potassium 3.8 mmol/L (3.5-5.1); Sodium Level 142 mmol/L (136-145)
[2019-10-21] MEDS ORDERED: NA CHLORIDE 0.9% 1,000 ML ONE (03:33)
[2019-10-21] MEDS ORDERED: KETOROLAC 30 MG/ML INJ ONE ×2 (03:48→04:43)
[2019-10-21] MEDS ORDERED: MORPHINE 4 MG/ML SYR ONE (03:55)
[2019-10-21 04:07] LABS: Urine RBC >50 /HPF (NONE SEEN)
[2019-10-21 04:08] LABS: Calcium Oxalate Crystals- Ur FEW (NONE SEEN); Urine Bacteria LOADED /HPF (<20); Urine Culture Reflex Order REFLEXED
[2019-10-21] MEDS ORDERED: ONDANSETRON 4 MG/2 ML VIAL ONE (04:43)
--- NOTE | 2019-10-21 04:49 | EDPHYS ---
Physician Documentation [facility] Name: Mary Casas Age: 54 yrs Sex: Female : 1965 Arrival Date: 10/21/2019 Time: 00:50 Bed 15 Private MD: ED Physician Arie Mckeon HPI: 10/20 04:08 This 54 yrs old Female presents to ER via Ambulatory with complaints of Blood tw4 In Urine, Lower Abd Pain. 04:08 The patient presents with flank pain, on the right, urinary symptoms, hematuria. Onset: tw4 The symptoms/episode began/occurred yesterday. Modifying factors: The symptoms are alleviated by nothing, the symptoms are aggravated by nothing. Associated signs and symptoms: The patient has no apparent associated signs or symptoms. Severity of symptoms: At their worst the symptoms were moderate, in the emergency department the symptoms are unchanged. The patient has not experienced similar symptoms in the past. 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 - Social history:: Smoking status: Patient denies any tobacco usage or history of. ROS: 04:08 Positive for urinary symptoms, hematuria, burning with urination, difficulty tw4 urinating, Negative for injury or acute deformity, foul smelling urine, vaginal bleeding, vaginal discharge, vaginal itching, menstrual abnormality, missed period. 04:08 Constitutional: Negative for fever, chills, and weight loss, Eyes: Negative for injury, pain, redness, and discharge, Cardiovascular: Negative for chest pain, palpitations, and edema, Respiratory: Negative for shortness of breath, cough, wheezing, and pleuritic chest pain, Abdomen/GI: Negative for abdominal pain, nausea, vomiting, diarrhea, and constipation, Back: Negative for injury and pain. 04:08 MS/Extremity: Negative for injury and deformity, Skin: Negative for injury, rash, and discoloration, Neuro: Negative for headache, weakness, numbness, tingling, and seizure. 04:08 : Positive for small amounts, hematuria, burning with urination, difficulty urinating. Exam: 04:08 Constitutional: This is a well developed, well nourished patient who is awake, alert, tw4 and in no acute distress. Head/Face: Normocephalic, atraumatic. Chest/axilla: Normal chest wall appearance and motion. Nontender with no deformity. No lesions are appreciated. Cardiovascular: Regular rate and rhythm with a normal S1 and S2. No gallops, murmurs, or rubs. Normal PMI, no JVD. No pulse deficits. Respiratory: Lungs have equal breath sounds bilaterally, clear to auscultation and percussion. No rales, rhonchi or wheezes noted. No increased work of breathing, no retractions or nasal flaring. Abdomen/GI: Soft, non-tender, with normal bowel sounds. No distension or tympany. No guarding or rebound. No evidence of tenderness throughout. Back: No spinal tenderness. No costovertebral tenderness. Full range of motion. MS/ Extremity: Pulses equal, no cyanosis. Neurovascular intact. Full, normal range of motion. Neuro: Awake and alert, GCS 15, oriented to person, place, time, and situation. Cranial nerves II-XII grossly intact. Motor strength 5/5 in all extremities. Sensory grossly intact. Cerebellar exam normal. Normal gait. Vital Signs: 01:15 BP 131 / 78; Pulse 65; Resp 16; Temp 98.2; Pulse Ox 97% on R/A; Pain 8/10; mt2 02:00 BP 122 / 64; Pulse 71; Resp 16; Pulse Ox 97% on R/A; Pain 8/10; mt2 03:00 BP 117 / 67; Pulse 74; Resp 16; Pulse Ox 97% on R/A; Pain 4/10; mt2 04:00 BP 126 / 77; Pulse 68; Resp 16; Pulse Ox 96% ; Pain 2/10; mt2 05:12 BP 126 / 72; Pulse 79; Resp 69; Pulse Ox 96% ; Pain 0/10; mt2 05:21 BP 124 / 71; Pulse 19; Resp 16; Pulse Ox 97% on R/A; Pain 0/10; mt2 MDM: 01:56 Patient medically screened. tw4 04:08 Data reviewed: vital signs, nurses notes. Data interpreted: Pulse oximetry: tw4 Interpretation: normal. Counseling: I had a detailed discussion with the patient and/or guardian regarding: the historical points, exam findings, and any diagnostic results supporting the discharge/admit diagnosis. 10/20 01:20 Order name: Basic Metabolic Panel; Complete Time: 02:15 10/20 02:16 Interpretation: Normal except: CL 109; GFR 74; GLUC 118. [facility] 10/20 01:20 Order name: CBC with Diff; Complete Time: 02:15 10/20 02:16 Interpretation: Within normal limits. 10/20 01:20 Order name: Hepatic Function; Complete Time: 02:15 10/20 02:16 Interpretation: Normal except: A/G 1.0. [facility] 10/20 01:20 Order name: Lipase; Complete Time: 02:15 10/20 02:16 Interpretation: LIP 123. 10/20 03:23 Order name: Urine Microscopic Only; Complete Time: 04:10 10/20 04:10 Interpretation: Normal except: URBC >50; UBACT LOADED. 10/20 04:10 Order name: Urine Culture [facility] 10/20 01:20 Order name: IV Saline Lock; Complete Time: 01:38 10/20 02:47 Order name: CT Stone Protocol [facility] 10/20 01:20 Order name: Labs collected and sent; Complete Time: 01:38 10/20 01:20 Order name: Urine Dipstick-Ancillary (obtain specimen); Complete Time: 05:13 4 Administered Medications: 03:28 Drug: NS 0.9% 1000 ml Route: IV; Rate: 1 bolus; Site: left wrist; mt2 04:30 Follow up: Response: No adverse reaction; IV Status: Completed infusion mt2 03:54 Drug: morphine 4 mg Route: IVP; Site: left wrist; mt2 04:30 Follow up: Response: No adverse reaction; Pain is decreased mt2 03:55 Not Given (patient had ibuprofen 600 mg dosage prior to arrival): TORadol 30 mg IVP oncemt2 04:50 Drug: Flomax 0.4 mg Route: PO; mt2 05:23 Follow up: Response: No adverse reaction mt2 05:13 Drug: TORadol - Ketorolac 15 mg Route: IVP; Site: left wrist; mt2 05:21 Follow up: BP 124 / 71; Pulse 19 bpm; Resp 16 bpm; Pulse Ox 97% RA; Pain 0/10 Adult mt2 Disposition: 10/21/19 04:48 Discharged to Home. Impression: Calculus of ureter. - Condition is Stable. - Prescriptions for Ibuprofen 800 mg Oral Tablet - take 1 tablet by ORAL route every 8 hours As needed take with food; 30 tablet. Tylenol- Codeine #3 300-30 mg Oral Tablet - take 2 tablet by ORAL route every 6 hours As needed; 30 tablet. Zofran 4 mg Oral Tablet - take 1 tablet by ORAL route every 12 hours As needed; 6 tablet. Flomax 0.4 mg Oral Capsule, Sust. Release 24 hr - take 1 capsule by ORAL route once daily 1/2 hour following the same meal each day; 30 capsule. - Work release form, Medication Reconciliation Form, Thank You Letter, Antibiotic Education, Prescription Opioid Use form. - Follow up: Private Physician; When: Upon discharge from the Emergency Department; Reason: Recheck today's complaints, Continuance of care, Re-evaluation by your physician. Follow up: Jean-Paul Garcia MD; When: Upon discharge from the Emergency Department; Reason: Recheck today's complaints, Continuance of care, Re-evaluation by your physician. Follow up: Roman Keita MD; When: Upon discharge from the Emergency Department; Reason: Recheck today's complaints, Continuance of care, Re-evaluation by your physician. - Problem is new. - Symptoms have improved. Signatures: Dispatcher [employer] EDMS Arie Mckeon MD MD tw4 Shruthi Gaines RN RN mt2 Corrections: (The following items were deleted from the chart) 04:49 04:48 10/21/2019 04:48 Discharged to Home. Impression: Calculus of ureter. Condition is tw4 Stable. Forms are Medication Reconciliation Form, Thank You Letter, Antibiotic Education, Prescription Opioid Use. Follow up: Private Physician; When: Upon discharge from the Emergency Department; Reason: Recheck today's complaints, Continuance of care, Re-evaluation by your physician. Problem is new. Symptoms have improved. tw4 05:26 04:49 10/21/2019 04:48 Discharged to Home. Impression: Calculus of ureter. Condition is mt2 Stable. Prescriptions for Ibuprofen 800 mg Oral Tablet - take 1 tablet by ORAL route every 8 hours As needed take with food; 30 tablet, Tylenol-Codeine #3 300-30 mg Oral Tablet - take 2 tablet by ORAL route every 6 hours As needed; 30 tablet, Zofran 4 mg Oral Tablet - take 1 tablet by ORAL route every 12 hours As needed; 6 tablet, Flomax 0.4 mg Oral Capsule, Sust. Release 24 hr - take 1 capsule by ORAL route once daily 1/2 hour following the same meal each day; 30 capsule. and Forms are Medication Reconciliation Form, Thank You Letter, Antibiotic Education, Prescription Opioid Use. Follow up: Private Physician; When: Upon discharge from the Emergency Department; Reason: Recheck today's complaints, Continuance of care, Re-evaluation by your physician. Follow up: Jean-Paul Garcia; When: Upon discharge from the Emergency Department; Reason: Recheck today's complaints, Continuance of care, Re-evaluation by your physician. Follow up: Roman Keita; When: Upon discharge from the Emergency Department; Reason: Recheck today's complaints, Continuance of care, Re-evaluation by your physician. Problem is new. Symptoms have improved. tw4
--- NOTE | 2019-10-21 04:49 | ER ---
Nurse's Notes [facility] Name: Mary Casas Age: 54 yrs Sex: Female : 1965 Arrival Date: 10/21/2019 Time: 00:50 Bed 15 Private MD: Diagnosis: Calculus of ureter Presentation: 10/20 01:15 Chief complaint: Patient states: ABD PAIN AND URGENCY BUT VERY LITTLE VOIDING. STATES mt2 HEMATURIA. Coronavirus screen: Patient denies a cough. Patient denies shortness of breath or difficulty breathing. Patient denies measured and/or subjective temperature greater than 100.4F prior to today's visit. Patient denies travel on a cruise ship or to a country the [facility] currently lists as an affected area. Patient denies contact with known and/or suspected case of COVID-19. Patient instructed to continue to wear a mask when interacting with others. Patient moved to private room, placed in contact and droplet isolation with eye protection until further assessment. 01:15 Method Of Arrival: Ambulatory mt2 01:15 Chief complaint: Patient states: PER PT HAD 1 EPISODE OF EMESIS. DENIES FEVER. PAIN ON mt2 RLQ RADIATING DOWN TO LEG. Ebola Screen: No symptoms or risks identified at this time. Initial Sepsis Screen: Does the patient meet any 2 criteria? No. Patient's initial sepsis screen is negative. Does the patient have a suspected source of infection? No. Patient's initial sepsis screen is negative. Risk Assessment: Do you want to hurt yourself or someone else? Patient reports no desire to harm self or others. Onset of symptoms was October 20, 2019 at 23:00. 01:15 Acuity: ROSINA 3 mt2 Triage Assessment: 01:30 General: Appears uncomfortable, Behavior is cooperative. Pain: Complains of pain in mt2 pelvis Pain radiates to right leg Pain currently is 10 out of 10 on a pain scale. EENT: No deficits noted. Neuro: No deficits noted. Cardiovascular: No deficits noted. Respiratory: No deficits noted. GI: No deficits noted. GI: Abdomen is flat, Abdomen is tender to palpation Reports lower abdominal pain. : No deficits noted. : Reports urgency. Derm: No deficits noted. Musculoskeletal: No deficits noted. 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 - Social history:: Smoking status: Patient denies any tobacco usage or history of. Screenin:30 Abuse screen: Denies threats or abuse. Nutritional screening: No deficits noted. mt2 Tuberculosis screening: No symptoms or risk factors identified. Fall Risk None identified. Assessment: 02:00 Reassessment: Patient and/or family updated on plan of care and expected duration. Pain mt2 level reassessed. General: Appears uncomfortable, Behavior is cooperative. Pain: Complains of pain in pelvis Pain currently is 8 out of 10 on a pain scale. 03:00 Reassessment: Patient and/or family updated on plan of care and expected duration. Pain mt2 level reassessed. Patient states symptoms have improved. General: Appears comfortable, Behavior is cooperative. 04:00 Reassessment: Patient and/or family updated on plan of care and expected duration. Pain mt2 level reassessed. Patient states symptoms have improved. General: Appears comfortable, Behavior is cooperative. 05:10 Reassessment: Patient and/or family updated on plan of care and expected duration. Pain mt2 level reassessed. Patient denies pain at this time. Patient states symptoms have improved. General: Appears comfortable, Behavior is cooperative. Vital Signs: 01:15 BP 131 / 78; Pulse 65; Resp 16; Temp 98.2; Pulse Ox 97% on R/A; Pain 8/10; mt2 02:00 BP 122 / 64; Pulse 71; Resp 16; Pulse Ox 97% on R/A; Pain 8/10; mt2 03:00 BP 117 / 67; Pulse 74; Resp 16; Pulse Ox 97% on R/A; Pain 4/10; mt2 04:00 BP 126 / 77; Pulse 68; Resp 16; Pulse Ox 96% ; Pain 2/10; mt2 05:12 BP 126 / 72; Pulse 79; Resp 69; Pulse Ox 96% ; Pain 0/10; mt2 05:21 BP 124 / 71; Pulse 19; Resp 16; Pulse Ox 97% on R/A; Pain 0/10; mt2 ED Course: 00:50 Patient arrived in ED. ds1 01:12 Shruthi Gaines, EHSAN is Primary Nurse. mt2 01:19 Arie Mckeon MD is Attending Physician. tw4 01:30 Triage completed. mt2 01:30 Inserted saline lock: 20 gauge in left wrist, using aseptic technique. Blood collected. ds4 01:30 Patient has correct armband on for positive identification. Placed in gown. Bed in low mt2 position. Call light in reach. Side rails up X 1. 01:30 Arm band placed on right wrist. mt2 01:41 Lipase Sent. ds4 01:42 Hepatic Function Sent. ds4 01:42 CBC with Diff Sent. ds4 01:42 Basic Metabolic Panel Sent. ds4 03:18 CT Stone Protocol In Process Unspecified. EDMS 04:49 Jean-Paul Garcia MD is Referral Physician. tw4 04:49 Roman Keita MD is Referral Physician. tw4 05:24 No provider procedures requiring assistance completed. IV discontinued, intact, mt2 bleeding controlled, No redness/swelling at site. Pressure dressing applied. Administered Medications: 03:28 Drug: NS 0.9% 1000 ml Route: IV; Rate: 1 bolus; Site: left wrist; mt2 04:30 Follow up: Response: No adverse reaction; IV Status: Completed infusion mt2 03:54 Drug: morphine 4 mg Route: IVP; Site: left wrist; mt2 04:30 Follow up: Response: No adverse reaction; Pain is decreased mt2 03:55 Not Given (patient had ibuprofen 600 mg dosage prior to arrival): TORadol 30 mg IVP oncemt2 04:50 Drug: Flomax 0.4 mg Route: PO; mt2 05:23 Follow up: Response: No adverse reaction mt2 05:13 Drug: TORadol - Ketorolac 15 mg Route: IVP; Site: left wrist; mt2 05:21 Follow up: BP 124 / 71; Pulse 19 bpm; Resp 16 bpm; Pulse Ox 97% RA; Pain 0/10 Adult mt2 Outcome: 04:48 Discharge ordered by . tw4 05:25 Discharged to home ambulatory. mt2 05:25 Condition: good 05:25 Discharge instructions given to patient, Instructed on discharge instructions, follow up and referral plans. medication usage, Demonstrated understanding of instructions, follow-up care, medications, Prescriptions given X 4. 05:26 Patient left the ED. mt2 Signatures: Dispatcher [employer] [facility] Alyssa Cody ds1 Abram Friend ds4 Arie Mckeon MD MD tw4 Shruthi Gaines RN RN mt2 Corrections: (The following items were deleted from the chart) 01:30 01:15 Coronavirus screen: Patient denies a cough. Patient denies shortness of breath or mt2 difficulty breathing. Patient denies measured and/or subjective temperature greater than 100.4F prior to today's visit. Patient denies travel on a cruise ship or to a country the [facility] currently lists as an affected area. Patient denies contact with known and/or suspected case of COVID-19. Patient instructed to continue to wear a mask when interacting with others. Patient moved to private room, placed in contact and droplet isolation with eye protection until further assessment. mt2 05:11 00:00 BP 117 / 67; Pulse 74bpm; Resp 16bpm; Pulse Ox 97% RA; Pain 4/10; mt2 mt2
[2019-10-21] MEDS ORDERED: TAMSULOSIN 0.4 MG SR CAP ONE (05:06)
[2019-10-21 05:45] VITALS: TEMP 98.2
[2019-10-21 06:06] VITALS: BP 124/71; O2SAT 97
--- NOTE | 2019-10-21 09:29 | RAD REPORT ---
EXAM DESCRIPTION: CT - Stone Protocol - 10/21/2019 4:34 am CLINICAL HISTORY: HEMATURIA COMPARISON: 08/31/2019. TECHNIQUE: CT ABDOMEN PELVIS WITHOUT IV CONTRAST on 10/21/2019 2:47 AM CDT This exam was performed according to our departmental dose-optimization program, which includes autom ated exposure control, adjustment of the mA and/or kV according to patient size and/or use of iterati ve reconstruction technique. FINDINGS: Lower lungs are clear. Abdomen: Liver is fatty. There is no biliary dilatation. Cholecystectomy was performed. The pancreas and spleen are normal in appearance. Adrenal glands and left kidney are normal. There is moderate rig ht hydronephrosis due to a 5 mm distal right ureteral calculus. Abdominal aorta is normal in course and caliber without aneurysm. There is no free air. There is no r etroperitoneal adenopathy. Pelvis: There is mild distal colonic masses. Urinary bladder is unremarkable. There is no free fluid. Hysterectomy was performed. Appendix is normal. Skeleton: There are no acute osseous findings. No suspicious bony lesions. IMPRESSION: Inflammatory process. Moderately obstructing 5 mm distal right ureteral calculus Electronically signed by: Alec Stevens MD 10/21/2019 3:25 AM CDT Due to temporary technical issues with the PACS/Fluency reporting system, reports are being signed by the in house radiologist without review as a courtesy to ensure prompt reporting. The interpreting r adiologist is fully responsible for the content of the report.
== END 2019-10-21 05:26 | disposition home or self-care (01) ==
LOC: ER 00:49
DX: N20.1 Calculus of ureter (principal)
CPT/HCPCS: 36415; 74176; 76377; 80048; 80076; 81015; 83690; 85025; 87086; 87088; 96361; 96374; 96375; 99284; J2405; J7030

== ENCOUNTER 2020-01-04 13:40 | Emergency (ER) | payer BC, OTHER, SELFPAY ==
--- OUTSIDE RECORDS SUMMARY | 2020-01-04 13:42 | XMS REPORT | Continuity of Care Document ---
:1965 Author Organization [facility] t Address [address] [place] [address] Care Team Providers Name Role Phone Lara VAUGHN Primary Care Physician Payers Payer Name Policy Type Policy Number Effective Date Expiration Date S ource Problems This patient has no known problems. Allergies, Adverse Reactions, Alerts Allergy Allergy Status Severity Reaction(s) Onset Inactive Treating Comm ents Source Name Type Date Date Clinician No Known DA Active U 2018-03 SON Allergie 2-13 Pearlan s 00:00: d 00 [facility] Social History Social Habit Start Date [...] 18:35: mouth n tablet 29 daily. pioglitazon 2018 Yes 30{tbl} Take 30 MD e (ACTOS) [...] Source SURG 2019-03-18 11:14:00 RUN DATE: 03/18/[address] [facility] PAGE 1 RUN TIME: 1114 Specimen Inquiry RUN USER: INTERFACE PATIENT: MAURILIO GORDON LOC: YANIRA Mathews #: [id number] AGE/SX: 53/F ROOM: [facility] RE03/13/19MARIUM DR: Jessica Kumar: 65 BED: 1 DIS: 03/15/19 STATUS: DIS IN TLOC: SPEC #: [id number] RECD: 03/14/19 STATUS: SOUMarcos REQ #: [id number] FABI: 03/13/[address]: Jessica Kumar MD ENTERED: 03/14/19 SP TYPE: SURG OTHR DR: ORDERED: SURG PATH LVL 5 HISTOLOGY: TISSUE ID BLK PCS LORA LEV PROCEDURE DISPOSITION ____ ___ ___ ___ CERVIX A 1 1 PROCEDURES: SURG PATH LVL 5 (03/14/19) TISSUES: A. CERVIX - CERVIX, UTERUS, BILATERAL FALLOPIAN TUBES BILATERAL OVARIES CLINICAL HISTORY EXCESSIVE/FREQ/IRREG MENSES-N92.1; LEIOMYOMA-D25.1 CPT CODES CPT CODE(S): 15241 , , , , , , FINAL [...] CONTINUED ON NEXT PAGE RUN DATE: 03/18/[address] [facility] PAGE 2 RUN TIME: 1114 Specimen Inquiry RUN USER: INTERFACE SPEC #: [facility]:[id number] PATIENT: HEIDIMAURILIO #[id number] (Continued)--------- --- GROSS DESCRIPTION (Continued) amputated cervix [...] A21-A22 Longer fallopian tube and fimbria A23-A24 [place] fallopian tube and fimbria A25-A26 Larger ovary A27-A28 Smaller ovary Grossing performed at [facility] Pathology, [address] [place] [address], [address], [place], [place] [address]. Director Of Capital Giving: Lane Matson M.D. MICROSCOPIC DESCRIPTION Cervix, uterus, [...] CONTINUED ON NEXT PAGE RUN DATE: 03/18/19 [facility] - LAB PAGE 3 RUN TIME: 1114 Specimen Inquiry RUN USER: INTERFACE SPEC #: [id number] PATIENT: DENVER GORDONINDA #[id number] (Continued)--------- --- MICROSCOPIC DESCRIPTION (Continued) lumina. A [...] GLUBED) 117 mg/dL 70-110 H GLUCOSE BEDSIDE [id number] 07:15:00 Test Item Value Reference Range Interpretation Comments GLUCOSE BEDSIDE TESTING (test code 136 mg/dL 70-110 H = GLUBED) GLUCOSE BEDSIDE [id number] 00:32:00 Test Item Value Reference Range Interpretation Comments GLUCOSE BEDSIDE TESTING (test code 125 mg/dL 70-110 H = GLUBED) GLUCOSE BEDSIDE [id number] 16:30:00 Test Item Value Reference Range Interpretation Comments GLUCOSE BEDSIDE TESTING (test code 124 mg/dL 70-110 H = GLUBED) GLUCOSE BEDSIDE [id number] 11:29:00 Test Item Value Reference Range Interpretation Comments GLUCOSE BEDSIDE TESTING (test code 129 mg/dL 70-110 H = GLUBED) GLUCOSE BEDSIDE [id number] 07:25:00 Test Item Value Reference Range Interpretation Comments GLUCOSE BEDSIDE TESTING (test code 149 mg/dL 70-110 H = GLUBED) CBC W/AUTO [id number] 07:04:00 Test Item Value Reference Range Interpretation [...] = NO DIFF/SCN CRITERIA MDIFF) GLUCOSE BEDSIDE [id number] 02:41:00 Test Item Value Reference Range Interpretation Comments GLUCOSE BEDSIDE TESTING (test code 113 mg/dL 70-110 H = GLUBED) GLUCOSE BEDSIDE [id number] 20:36:00 Test Item Value Reference Range Interpretation Comments GLUCOSE BEDSIDE TESTING (test code 158 mg/dL 70-110 H = GLUBED) GLUCOSE BEDSIDE [id number] 15:38:00 Test Item Value Reference Range Interpretation Comments GLUCOSE BEDSIDE TESTING (test code 220 mg/dL 70-110 H = GLUBED) GLUCOSE BEDSIDE [id number] 06:42:00 Test Item Value Reference Range Interpretation Comments GLUCOSE BEDSIDE TESTING (test code 229 mg/dL 70-110 H = GLUBED) URINALYSIS [id number] 15:44:00 Test Item Value Reference Range Interpretation [...] LEUU) Urine Specimen Type: Clean CatchUR HCG [id number] 15:44:00 Test Item Value Reference Range Interpretation Comments UR HCG QUAL (test code = HCGQLU) NEGATIVE NEGATIVE Urine Specimen Type: Clean CatchURINALYSIS [id number] 15:01:00 Test Item Value Reference Range Interpretation [...] LEUU) Urine Specimen Type: Clean CatchUR HCG [id number] 15:01:00 Test Item Value Reference Range Interpretation Comments UR HCG QUAL (test code = HCGQLU) NEGATIVE Urine Specimen Type: Clean CatchCBC W/AUTO [id number] 14:33:00 Test Item Value Reference Range Interpretation [...]
[2020-01-04] MEDS ORDERED: KETOROLAC 30 MG/ML INJ ONE (15:11)
--- NOTE | 2020-01-04 16:01 | RAD REPORT ---
EXAM DESCRIPTION: [facility]2020 3:44 pm CLINICAL HISTORY: Right leg pain and swelling. COMPARISON: None. FINDINGS: Right common femoral, superficial femoral, popliteal and right posterior tibial veins are compressible and demonstrate augmentation. Doppler demonstrates good flow. IMPRESSION: No evidence of deep venous thrombosis involving the right lower extremity.
--- NOTE | 2020-01-04 16:40 | ER ---
Nurse's Notes [facility] Name: Mary Casas Age: 54 yrs Sex: Female : 1965 Arrival Date: 01/04/2020 Time: 13:46 Bed 18 Private MD: Diagnosis: Strain of other muscles and tendons at lower leg level Presentation: 01/03 13:54 Chief complaint: Patient states: Tripped over a suitcase last Monday. Landed on both ll1 knees. RLE calf area pain and swelling gradually since. No fever. Coronavirus screen: Client denies travel out of the [place] in the last 14 days. At this time, the client does not indicate any symptoms associated with coronavirus-19. Ebola Screen: Patient denies travel to an Ebola-affected area in the 21 days before illness onset. Initial Sepsis Screen: Does the patient meet any 2 criteria? No. Patient's initial sepsis screen is negative. Does the patient have a suspected source of infection? Yes: Other: RLE pain/swelling. Risk Assessment: Do you want to hurt yourself or someone else? Patient reports no desire to harm self or others. Onset of symptoms was December 29, 2019. 13:54 Method Of Arrival: Ambulatory ll1 13:54 Acuity: ROSINA 3 ll1 Historical: - Allergies: 13:57 Percocet; ll1 - PSHx: 13:57 Hysterectomy; ; Cholecystectomy; ll1 - Immunization history:: Flu vaccine is not up to date. - Social history:: Smoking status: Patient denies any tobacco usage or history of. Screenin:06 Abuse screen: Denies threats or abuse. Denies injuries from another. Nutritional ss screening: No deficits noted. Tuberculosis screening: Never had TB. Fall Risk None identified. Assessment: 15:06 General: Appears uncomfortable, Behavior is calm, cooperative. Pain: Complains of pain ss in R lower leg Pain currently is 9 out of 10 on a pain scale. Neuro: Level of Consciousness is awake, alert, obeys commands. Cardiovascular: Pulses are palpable in right posterior tibial artery and left posterior tibial artery. Respiratory: Airway is patent Respiratory effort is even, unlabored, Respiratory pattern is regular, symmetrical. GI: Patient currently denies diarrhea, nausea, vomiting. EENT: Oral mucosa is moist. Derm: Skin is intact, is healthy with good turgor, Skin is dry, Skin is pink, warm \T\ dry. normal. Musculoskeletal: Circulation, motion, and sensation intact. Range of motion: intact in all extremities, Swelling absent. Vital Signs: 13:54 BP 123 / 71; Pulse 82; Resp 17; Temp 98.3; Pulse Ox 98% ; Weight 88.45 kg; Height 5 ft. ll1 4 in. (162.56 cm); Pain 9/10; 13:54 Body Mass Index 33.47 (88.45 kg, 162.56 cm) ll1 ED Course: 13:46 Patient arrived in ED. ds1 13:56 Triage completed. ll1 13:57 Arm band placed on Patient placed in an exam room, on a stretcher. ll1 14:05 Artis Abdalla PA is PHCP. [place] 14:05 Don Munroe MD is Attending Physician. [facility] 14:56 Saundra Pierre, EHSAN is Primary Nurse. ss 15:06 Patient has correct armband on for positive identification. Bed in low position. Call ss light in reach. Side rails up X 1. 15:44 Extremity Venous Unilateral Ltd In Process Unspecified. EDMS 16:39 Lucas Reaves MD is Referral Physician. [facility] 16:44 No provider procedures requiring assistance completed. Patient did not have IV access ss during this emergency room visit. Administered Medications: 15:06 Drug: Ketorolac 30 mg Route: IM; Site: left gluteus; ss 16:44 Follow up: Response: No adverse reaction; Pain is unchanged, physician notified ss Outcome: 16:39 Discharge ordered by . [facility] 16:44 Discharged to home ambulatory. ss 16:44 Condition: good 16:44 Discharge instructions given to patient, Instructed on discharge instructions, follow up and referral plans. medication usage, Demonstrated understanding of instructions, follow-up care, medications, Prescriptions given X 1. 16:45 Patient left the ED. ss Signatures: Dispatcher [employer] EDMS Artis Abdalla PA PA jmm Sanford, Demi ds1 Saundra Pierre, EHSAN MOSER Cari Corona RN RN 1
--- NOTE | 2020-01-04 16:40 | EDPHYS ---
Physician Documentation [facility] Name: Mary Casas Age: 54 yrs Sex: Female : 1965 Arrival Date: 01/04/2020 Time: 13:46 Bed 18 Private MD: ED Physician Don Munroe HPI: 01/03 14:09 This 54 yrs old Female presents to ER via Ambulatory with complaints of Leg jmm Pain. 14:09 The patient presents with pain. Onset: The symptoms/episode began/occurred gradually, 1 jmm week(s) ago. Modifying factors: The symptoms are alleviated by nothing. the symptoms are aggravated by nothing. Associated signs and symptoms: Pertinent positives: swelling, Pertinent negatives fever. This is a 54 year old female that presents to the ED with complaints of right lower extremity pain. Patient states she had a fall approx 1 week ago. Patient states having ongoing pain to the right lower lateral region of the leg with swelling. Denies fever. . Historical: - Allergies: 13:57 Percocet; ll1 - PSHx: 13:57 Hysterectomy; ; Cholecystectomy; ll1 - Immunization history:: Flu vaccine is not up to date. - Social history:: Smoking status: Patient denies any tobacco usage or history of. ROS: 16:03 Constitutional: Negative for fever, chills, and weight loss, Cardiovascular: Negative jmm for chest pain, palpitations, and edema, Respiratory: Negative for shortness of breath, cough, wheezing, and pleuritic chest pain. 16:03 MS/extremity: Positive for pain. 16:03 All other systems are negative. Exam: 16:03 Constitutional: This is a well developed, well nourished patient who is awake, alert, jmm and in no acute distress. Head/Face: atraumatic. Eyes: EOMI, no conjunctival erythema appreciated ENT: Moist Mucus Membranes Neck: Trachea midline, Supple Chest/axilla: Normal chest wall appearance and motion. Cardiovascular: Regular rate and rhythm. No edema appreciated Respiratory: Normal respirations, no respiratory distress appreciated Abdomen/GI: Non distended, soft Back: Normal ROM Skin: General appearance color normal 16:03 Musculoskeletal/extremity: from noted to the right knee, swelling and warmth noted to the right lateral gastrocnemius region, full dorsalis pulse, compartments are soft, NVI. 16:03 Skin: Appearance: Color: normal in color. 16:03 Neuro: Orientation: is normal, Mentation: is normal, Memory: is normal. 16:03 Psych: Exam negative for Behavior/mood is pleasant, cooperative. Vital Signs: 13:54 BP 123 / 71; Pulse 82; Resp 17; Temp 98.3; Pulse Ox 98% ; Weight 88.45 kg; Height 5 ft. ll1 4 in. (162.56 cm); Pain 9/10; 13:54 Body Mass Index 33.47 (88.45 kg, 162.56 cm) ll1 MDM: 14:09 Patient medically screened. [facility] 16:36 Data reviewed: vital signs, nurses notes. Counseling: I had a detailed discussion with mehnaz the patient and/or guardian regarding: the historical points, exam findings, and any diagnostic results supporting the discharge/admit diagnosis, radiology results, the need for outpatient follow up, to return to the emergency department if symptoms worsen or persist or if there are any questions or concerns that arise at home. ED course: Patient is alert and non toxic in appearance in the ED. Pain is alleviated in the ED. Patient is advised to follow up with ortho for reevaluation and otherwise given strict return precautions. Patient understood and agrees with the plan of care. . 01/03 14:37 Order name: US Extremity Venous Unilateral Ltd; Complete Time: 16:02 mehnaz Administered Medications: 15:06 Drug: Ketorolac 30 mg Route: IM; Site: left gluteus; ss 16:44 Follow up: Response: No adverse reaction; Pain is unchanged, physician notified ss Disposition: 17:59 Co-signature as Attending Physician, Don Munroe MD I agree with the assessment and [facility] plan of care. Disposition: 01/04/20 16:39 Discharged to Home. Impression: Strain of other muscles and tendons at lower leg level. - Condition is Stable. - Prescriptions for orphenadrine citrate 100 mg Oral Tablet Sustained Release - take 1 tablet by ORAL route 2 times per day As needed; 20 tablet. - Medication Reconciliation Form, Thank You Letter, Antibiotic Education, Prescription Opioid Use, Work release form form. - Follow up: Private Physician; When: 2 - 3 days; Reason: Recheck today's complaints, Continuance of care, Re-evaluation by your physician. Follow up: Lucas Reaves MD; When: As needed; Reason: Recheck today's complaints, Continuance of care, Re-evaluation by your physician. Signatures: Dispatcher [employer] EDDon Pablo MD MD cha Mickail, Joel, PA PA jmm Smirch, Shelby, RN RN ss Cari Corona RN RN ll1 Corrections: (The following items were deleted from the chart) 16:05 14:09 This is a 54 year old female that presents to the ED with complaints of right jmm lower extremity pain. jmm 16:39 16:39 01/04/2020 16:39 Discharged to Home. Impression: Strain of other muscles and jmm tendons at lower leg level. Condition is Stable. Forms are Medication Reconciliation Form, Thank You Letter, Antibiotic Education, Prescription Opioid Use. Follow up: Private Physician; When: 2 - 3 days; Reason: Recheck today's complaints, Continuance of care, Re-evaluation by your physician. [facility] 16:45 16:39 01/04/2020 16:39 Discharged to Home. Impression: Strain of other muscles and ss tendons at lower leg level. Condition is Stable. Prescriptions for orphenadrine citrate 100 mg Oral Tablet Sustained Release - take 1 tablet by ORAL route 2 times per day As needed; 20 tablet. and Forms are Medication Reconciliation Form, Thank You Letter, Antibiotic Education, Prescription Opioid Use. Follow up: Private Physician; When: 2 - 3 days; Reason: Recheck today's complaints, Continuance of care, Re-evaluation by your physician. Follow up: Lucas Reaves; When: As needed; Reason: Recheck today's complaints, Continuance of care, Re-evaluation by your physician. [place]
[2020-01-04 16:53] VITALS: BP 123/71; TEMP 98.3; O2SAT 98
== END 2020-01-04 16:45 | disposition home or self-care (01) ==
LOC: ER 13:40
DX: S86.811A Strain of other muscle(s) and tendon(s) at lower leg level, right leg, initial encounter (principal); W19.XXXA Unspecified fall, initial encounter; Z88.5 Allergy status to narcotic agent
CPT/HCPCS: 93971; 96372; 99283

== ENCOUNTER 2022-05-08 17:57 | Emergency (ER) | payer BC ==
--- OUTSIDE RECORDS SUMMARY | 2022-05-08 18:21 | XMS REPORT | Clinical Summary ---
:1965 Author Organization [facility] Address [address] [place] [address] Care Team Providers Name Role Phone Jb Bermudez MD Primary Care Provider Tereza Brush MS, [facility] Unavailable Unavailable Claude Teixeira MD Unavailable Allergies No known active allergies Medications Medication Sig Dispensed Refills Start Date End Date Status atorvastatin (LIPITOR) Take 1 tablet by 0 Active 20 mg tablet mouth daily. metFORMIN (GLUCOPHAGE) Take 1 tablet by 0 06/25/2016 Active 1000 mg tablet mouth daily. pioglitazone (ACTOS) 30 Take 30 tablets 0 Active mg tablet by mouth daily. Pt can't recall if sje's taking Actos or Actosplus. Will clarify sitaGLIPtin (JANUVIA) Take 100 mg by 0 05/25/2017 Active 100 mg tablet mouth daily. lisinopril Take 40 mg by 0 Activ e (PRINIVIL,ZESTRIL) 40 mouth daily. mg tablet pioglitazone-metFORMIN Take 1 tablet by 0 Active (ACTOPLUS MET) 15-850 mouth daily. Pt mg per tablet unsure if taking Actos or Actosplus. Will call to clarify cholecalciferol, Take 1 capsule by 0 Active vitamin D3, 2,000 unit mouth daily. capsule Active Problems Not on file Social History Tobacco Use Types Packs/Day Years Used Date Smoking Tobacco: Never Assessed Sex Assigned at Date Recorded Not on file Last Filed Vital Signs Not on file Plan of Treatment Health Maintenance Due Date Last Done Comments COVID-19 Vaccination (#1) 02/26/1966 Results Not on fileafter 05/08/2021 Insurance Payer Benefit Plan / Subscriber ID Effective Dates Phone Addre ss Type Group [employer] MANAGED [employer] O [id number] [id number] [place] [address] (Work) [phone] Susan Gonsales Personal/Family Self 1965 [address] (Home) [phone] [place] ([place]) [phone] Susan Gonsales Personal/Family Self 1965 [address] (Home) [phone] [place] ([place]) [phone] Care Teams Glaze Wiper Relationship Specialty Start Date End Date Jb Bermudez MD PCP - General Oncology 08/24/17 [address] [place] [address] Claude Teixeira MD PCP - External Referring Gastroenterology 08/24/17 Tereza Brush MS, Counselor Genetics 08/24/17 [facility] [address] [place] [address]
--- OUTSIDE RECORDS SUMMARY | 2022-05-08 18:22 | XMS REPORT | Continuity of Care Document ---
:1965 Author Organization [facility] t Address [address] [place] [address] Care Team Providers Name Role Phone Brandon Ramirez Primary Care Physician VIVIEN ZARAGOZA Attending Clinician Unavailable FOG_A_Provider Attending Clinician Unavailable ISAMAR Attending Clinician Unavailable Olamide Eugene RN Attending Clinician Priyanka Vinson Attending Clinician Sami Hong MD Attending Clinician Therapy, [facility] Infusion Attending Clinician Unavailable Francisco Pulido MD Attending Clinician FRANCISCO PULIDO Attending Clinician Unavailable Ena Attending Clinician Unavailable FOG_A_Provider Admitting Clinician Unavailable ISAMAR Admitting Clinician Unavailable Sami Hong MD Admitting Clinician Ena Admitting Clinician Unavailable Payers Payer Name Policy Type Policy Number Effective Date Expiration Date S ource [place] [id number] 2020 00:00:00 BC[place] 2 [id number] 2022 00:00:00 [place] [id number] 2021 00:00:00 [place] [id number] 2001 00:00:00 (POS II) Problems Condition Condition Condition Status Onset Resolution Last Treating Co mments Source Name Details Category Date Date Treatment Clinician Date Acute Acute Disease Active [facility] respirator respirator 8-13 [place] COVID-19 COVID-19 Branch Obesity Obesity Disease Active Univers (BMI (BMI 8-13 ity of 30-39.9) 30-39.9) 00:00: [place] 00 Medical Branch Elissa' Elissa' Disease Active 2013-03 U nivers s s 0-22 ity of thyroiditi thyroiditi 00[place] Breast Breast Disease Active 2013-03 Univers tenderness tenderness 0-22 it y of 00:00: [place] 00 Medical Branch Memory Memory Disease Active 2013-03 Univers loss, loss, 0-22 ity of short term short [place] 00:[place] Arthralgia Arthralgia Disease Active 2013-03 U nivers 0-22 ity of 00:00: [place] 00 Medical Branch Fatigue Fatigue Disease Active 2013-03 Univers 0-22 ity of 00:00: [place] 00 Medical Branch Thinning Thinning Disease Active 2013-03 Unive rs hair hair 0-22 ity of 00:00: [place] 00 Medical Branch Insomnia Insomnia Disease Active 2013-03 Unive rs 0-22 ity of 00:00: [place] 00 Medical Branch Allergies, Adverse Reactions, Alerts Allergy Allergy Status Severity Reaction(s) Onset Inactive Treating Comm ents Source Name Type Date Date Clinician No Known DA Active U 2018-03 [facility] All[facility]ie 2-13 [place] [facility] HYDROCOD DRUG Active ITCHING 2013-03 Univers ONE INGREDI 0-22 ity of 00:00: [place] 00 Medical Branch PERCODAN DRUG Active ITCHING 2013-03 Univers ANN 0-22 ity of 00:00: [place] 00 Medical Branch Hydrocod Propensi Active Itching 2013-03 Unive rs one ty to 0-22 ity of adverse 00:00: [place] reaction 00 Medical s Branch Percodan Propensi Active Itching 2013-03 Unive rs Ann ty to 0-22 ity of adverse 00:00: [place] reaction 00 Medical s Branch Social History Social Habit Start Date Stop Date Quantity Comments Source Exposure to Yes University SARS-CoV-2 [place] [facility] (event) Branch Tobacco use and 2020-11-06 2020-11-06 Never used Universit y of exposure 00:00:00 00:00:00 [facility] Alcohol intake 2020-11-06 2020-11-06 Ex-drinker University 00:00:00 00:00:00 (finding) [facility] Sex Ass[birth year] At [birth year] Universit y of 00:00:00 00:00:00 [place] MD Dominguez [facility] Smoking Status Start Date Stop Date Source Never smoker [facility] Medications Ordered Filled Start Stop Current Ordering Indication Dosage Frequency Signature Comments Components Source Medication Medication Date Date Medication? Clinician (SIG) Name Name zinc Yes [id number] 220mg Take 1 Unive rs sulfate 50 8-25 capsule by ity of mg zinc 00:00: mouth [place] (220 mg) 00 daily. Medical capsule Branch thiamine Yes [id number] 100mg Take 1 U nivers 100 mg 8-25 tablet by ity of tablet 00:00: mouth [place] 00 daily. Medical Branch zinc Yes [id number] 220mg Take 1 Unive rs sulfate 50 8-25 capsule by ity of mg zinc 00:00: mouth [place] (220 mg) 00 daily. Medical capsule Branch thiamine Yes [id number] 100mg Take 1 U nivers 100 mg 8-25 tablet by ity of tablet 00:00: mouth [place] 00 daily. Medical Branch zinc Yes [id number] 220mg Take 1 Unive rs sulfate 50 8-25 capsule by ity of mg zinc 00:00: mouth [place] (220 mg) 00 daily. Medical capsule Branch thiamine Yes [id number] 100mg Take 1 U nivers 100 mg 8-25 tablet by ity of tablet 00:00: mouth [place] 00 daily. Medical Branch zinc Yes [id number] 220mg Take 1 Unive rs sulfate 50 8-25 capsule by ity of mg zinc 00:00: mouth [place] (220 mg) 00 daily. Medical capsule Branch thiamine Yes [id number] 100mg Take 1 U nivers 100 mg 8-25 tablet by ity of tablet 00:00: mouth [place] 00 daily. Medical Branch DULoxetine 0 Yes 90mg Take 90 mg U nivers 30 mg 8-24 by mouth ity of capsule 21:55: daily. [address] DULoxetine 0 Yes 90mg Take 90 mg U nivers 30 mg 8-24 by mouth ity of capsule 21:55: daily. [address] DULoxetine 0 Yes 90mg Take 90 mg U nivers 30 mg 8-24 by mouth ity of capsule 21:55: daily. [address] DULoxetine Yes 90mg Take 90 mg U nivers 30 mg 8-24 by mouth ity of capsule 21:55: daily. [address] baricitinib Yes 4mg 4 mg, Unive rs (OLUMIANT) 8-24 Oral, ity of tablet 4 mg 14:00: [place] 00 First dose Medical (after Branch last modificati on) on Mon11/17/20 at 0900, Until Discontinu ed, Routine baricitinib Yes 4mg 4 mg, Unive rs (OLUMIANT) 8-24 Oral, ity of tablet 4 mg 14:00: DAILY, [place] 00 First dose Medical (after Branch last modificati on) on Mon11/17/20 at 0900, Until Discontinu ed, Routine albuterol Yes [id number] 2{puff} Inhale 2 Univers 90 8-24 Puffs ity of mcg/actuati 00:00: every 4 [place] on inhaler 00 (four) Medical hours as Branch needed for Wheezing or Shortness of Breath. vitamin C Yes [id number] 1000mg Take 1 Univers with lucie 8-24 tablet by ity o f hips 1,000 00:00: mouth [place] mg tablet 00 daily. Medical Branch cholecalcif 0 Yes [id number] 2000U Take 2 Univers ravindra, 8-24 tablets by ity of vitamin D3, 00:00: mouth [place] 25 mcg 00 daily. Medical (1,000 Branch unit) tablet albuterol Yes [id number] 2{puff} Inhale 2 Univers 90 8-24 Puffs ity of mcg/actuati 00:00: every 4 [place] on inhaler 00 (four) Medical hours as Branch needed for Wheezing or Shortness of Breath. vitamin C 0 Yes [id number] 1000mg Take 1 Univers with lucie 8-24 tablet by ity o f hips 1,000 00:00: mouth [place] mg tablet 00 daily. Medical Branch cholecalcif 0 Yes [id number] 2000U Take 2 Univers ravindra, 8-24 tablets by ity of vitamin D3, 00:00: mouth [place] 25 mcg 00 daily. Medical (1,000 Branch unit) tablet albuterol 2020-0 Yes [id number] 2{puff} Inhale 2 Univers 90 8-24 Puffs ity of mcg/actuati 00:00: every 4 [place] on inhaler 00 (four) Medical hours as Branch needed for Wheezing or Shortness of Breath. vitamin C 0 Yes [id number] 1000mg Take 1 Univers with lucie 8-24 tablet by ity o f hips 1,000 00:00: mouth [place] mg tablet 00 daily. Medical Branch cholecalcif 0 Yes [id number] 2000U Take 2 Univers ravindra, 8-24 tablets by ity of vitamin D3, 00:00: mouth [place] 25 mcg 00 daily. Medical (1,000 Branch unit) tablet albuterol 2020-0 Yes [id number] 2{puff} Inhale 2 Univers 90 8-24 Puffs ity of mcg/actuati 00:00: every 4 [place] on inhaler 00 (four) Medical hours as Branch needed for Wheezing or Shortness of Breath. vitamin C 0 Yes [id number] 1000mg Take 1 Univers with lucie 8-24 tablet by ity o f hips 1,000 00:00: mouth [place] mg tablet 00 daily. Medical Branch cholecalcif 0 Yes [id number] 2000U Take 2 Univers ravindra, 8-24 tablets by ity of vitamin D3, 00:00: mouth [place] 25 mcg 00 daily. Medical (1,000 Branch unit) tablet calcium 0 Yes 500mg 500 mg, Univer s carbonate 11-14 Oral, ity of (OSCAL-500) 17:01: TIDPRN, [place] tablet 500 00 Starting Medic al mg Sat Branch 11/14/20 at 1201, Until Discontinu ed, Routine, Indigestio n calcium Yes 500mg 500 mg, Univer s carbonate 11-14 Oral, ity of (OSCAL-500) 17:01: TIDPRN, [place] tablet 500 00 Starting Medic al mg [facility] 11/14/20 at 1201, Until Discontinu ed, Routine, Indigestio n famotidine Yes 20mg 20 mg, Unive rs (PEPCID AC) 11-14 Oral, BID, it y of tablet 20 17:00: [place] dose [place] 00 on [facility] 11/14/20 at Branch 1200, Until Discontinu ed, Routine famotidine Yes 20mg 20 mg, Unive rs (PEPCID AC) 11-14 Oral, BID, it y of tablet 20 17:00: [place] 00 on [facility] 11/14/20 at Branch 1200, Until Discontinu ed, Routine sodium 2020-0 Yes 1{spray 1 [place], Univ ers chloride 8- } Nasal, ity of (OCEAN MIST 22:53: PRN, [place] NASAL) 0.65 04 Starting Medi [place]ott % nasal [place] Branch spray 11/12/20 at [place] 1753, Until Discontinu ed, Routine, for dry nasal passages sodium 2020-0 Yes 1{spray 1 [place], Univ ers chloride 8-19 } Nasal, ity of (OCEAN MIST 22:53: PRN, [place] NASAL) 0.65 04 Starting Medi [place]ott % nasal [place] Branch spray 1 11/12/20 at [place] 1753, Until Discontinu ed, Routine, for dry nasal passages predniSONE 2020-0 202- No 60mg 60 mg, Univ ers (DELTASONE) 11-09 Oral, ity of tablet 60 21:45: 22:19 ONCE, 1 [place] mg 00 :00 dose, [facility] 11/09/20 at Branch 1645, Routine predniSONE 2020-0 2020- No 60mg 60 mg, Univ ers (DELTASONE) 11-09 Oral, ity of tablet 60 21:45: 22:19 ONCE, 1 [place] mg 00 :00 dose, [facility] 11/09/20 at Branch 1645, Routine guaiFENesin 2021-0 Yes 200mg 200 mg, Un raghav 100 mg/5 mL 8-16 Oral, Q4H, it y of solution 21:00: First dose [place] 200 mg 00 on [facility] 11/09/20 at Branch 1600, Until Discontinu ed, Routine guaiFENesin Yes 200mg 200 mg, Un raghav 100 mg/5 mL 8-16 Oral, Q4H, it y of solution 21:00: First dose [place] 200 mg 00 on [facility] 11/09/20 at Branch 1600, Until Discontinu ed, Routine baricitinib 2020- No 4mg 4 mg, Univ ers (OLUMIANT) 11-08 Oral, ity of tablet 4 mg 20:45: 14:22 DAILY, [place] 00 :26 First dose Medical (after [place] last modificati on) on [place] 11/08/20 at 1545, Until Discontinu ed, Routine baricitinib 2020- No 4mg 4 mg, Univ ers (OLUMIANT) 11-08 Oral, ity of tablet 4 mg 20:45: 14:22 DAILY, [place] 00 :26 First dose Medical (after [place] last modificati on) on [place] 11/08/20 at 1545, Until Discontinu ed, Routine NaCl 0.9% 2020- No 500mL at 999 Univ ers (NS) bolus 11-08 08-15 mL/hr, 500 it y of infusion 17:00: 16:22 mL, IV [place] 500 mL 00 :00 Infusion, Medical ONCE, 1 Branch dose, [place] 11/08/20 at 1200, STAT NaCl 0.9% 2020- No 500mL at 999 Univ ers (NS) bolus 11-08 08-15 mL/hr, 500 it y of infusion 17:00: 16:22 mL, IV [place] 500 mL 00 :00 Infusion, Medical ONCE, 1 Branch dose, [place] 11/08/20 at 1200, STAT DULoxetine Yes 90mg 90 mg, Unive rs (CYMBALTA) 11-08 Oral, ity of capsule 90 14:00: DAILY, [place] mg 00 First dose Medical on [facility] 11/08/20 at 0900, Until Discontinu ed, Routine DULoxetine 0 Yes 90mg 90 mg, Unive rs (CYMBALTA) 8-15 Oral, ity of capsule 90 14:00: DAILY, [place] mg 00 First dose Medical on [facility] 11/08/20 at 0900, Until Discontinu ed, Routine cyclobenzap 0 Yes 10mg 10 mg, Univ ers rine 8-15 Oral, ity of (FLEXERIL) 05:45: BIDPRN, [place] tablet 10 Starting Medica l mg [facility] 11/08/20 at 0045, Until Discontinu ed, Routine, Muscle Spasms cyclobenzap 0 Yes 10mg 10 mg, Univ ers rine 815 Oral, ity of (FLEXERIL) 05:45: BIDPRN, [place] tablet 10 Starting Medica l mg [facility] 11/08/20 at 0045, Until Discontinu ed, Routine, Muscle Spasms dexamethaso 2020-0 202- No 6mg 6 mg, Slow Univers ne 11-07 IV Push, ity of (DECADRON 17:00: 21:41 QNOON, [place] PHOSPHATE) 00 :50 First dose Med ical injection 6 (after Branch mg last reorder) on [facility] 11/07/20 at 1200, Until Discontinu ed, Routine dexamethaso 2020- No 6mg 6 mg, Slow Univers ne 11-07 IV Push, ity of (DECADRON 17:00: 21:41 QNOON, [place] PHOSPHATE) 00 :50 First dose Med ical injection 6 (after Branch mg last reorder) on [facility] 11/07/20 at 1200, Until Discontinu ed, Routine acetaminoph 0 Yes 650mg 650 mg, Un raghav en 11-07 Oral, ity of (TYLENOL) 16:45: Q4HPRN, [place] tablet 650 00 Starting Medic al mg [facility] 11/07/20 at 1145, Until Discontinu ed, Routine, Pain (scale 1-3), Temp > 38.5 C ascorbic 2020-0 Yes 1000mg [Order 1 Uni vers acid 11-07 Start] ity of (vitamin C) 16:45: Name: [place] (VITAMIN C) 00 ascorbic Medi [place]ott tablet acid Branch 1,000 mg (vitamin C) (VITAMIN C) tablet 1,000 mg Signed Summary: 1,000 mg, Oral, BID, First dose on 11/07/20 at 1145, Until Discontinu ed, Routine [Order 1 End] [Order 2 Start] Name: cholecalci ferol (vitamin D3) tablet 2,000 Units Signed Summary: 2,000 Units, Oral, BID, First dose on 11/07/20 at 1145, Until Discontinu ed, Routine [Order 2 End] [Order 3 Start] Name: zinc sulfate (ORAZINC) capsule 220 mg Signed Summary: 220 mg, Oral, DAILY, First dose on 11/07/20 at 1145, Until Discontinu ed, Routine [Order 3 End] [Order 4 Start] Name: thiamine (VITAMIN B1) tablet 100 mg Signed Summary: 100 mg, Oral, DAILY, First dose on 11/07/20 at 1145, Until Discontinu ed, Routine [Order 4 End] [Order 5 Start] Name: melatonin (MELATIN) tablet 6 mg Signed Summary: 6 mg, Oral, QHS, First dose on 11/07/20 at 2100, Until Discontinu ed, Routine [Order 5 End] [Order 6 Start] Name: multivitam in tablet 1 tablet Signed Summary: 1 tablet, Oral, DAILY, First dose on 11/08/20 at 0900, Until Discontinu ed, Routine [Order 6 End] acetaminoph 2020-0 Yes 650mg 650 mg, Un raghav en 11-07 Oral, ity of (TYLENOL) 16:45: Q4HPRN, [place] tablet 650 00 Starting Medic al mg Sat Branch 11/07/20 at 1145, Until Discontinu ed, Routine, Pain (scale 1-3), Temp > 38.5 C ascorbic 2020-0 Yes 1000mg [Order 1 Uni vers acid 11-07 Start] ity of (vitamin C) 16:45: Name: [place] (VITAMIN C) 00 ascorbic Medi [place]ott tablet acid Branch 1,000 mg (vitamin C) (VITAMIN C) tablet 1,000 mg Signed Summary: 1,000 mg, Oral, BID, First dose on 11/07/20 at 1145, Until Discontinu ed, Routine [Order 1 End] [Order 2 Start] Name: cholecalci ferol (vitamin D3) tablet 2,000 Units Signed Summary: 2,000 Units, Oral, BID, First dose on 11/07/20 at 1145, Until Discontinu ed, Routine [Order 2 End] [Order 3 Start] Name: zinc sulfate (ORAZINC) capsule 220 mg Signed Summary: 220 mg, Oral, DAILY, First dose on 11/07/20 at 1145, Until Discontinu ed, Routine [Order 3 End] [Order 4 Start] Name: thiamine (VITAMIN B1) tablet 100 mg Signed Summary: 100 mg, Oral, DAILY, First dose on 11/07/20 at 1145, Until Discontinu ed, Routine [Order 4 End] [Order 5 Start] Name: melatonin (MELATIN) tablet 6 mg Signed Summary: 6 mg, Oral, QHS, First dose on 11/07/20 at 2100, Until Discontinu ed, Routine [Order 5 End] [Order 6 Start] Name: multivitam in tablet 1 tablet Signed Summary: 1 tablet, Oral, DAILY, First dose on [place] 11/08/20 at 0900, Until Discontinu ed, Routine [Order 6 End] ibuprofen 2020- No 600mg 600 mg, Uni vers (IBU) 11-07 Oral, TID ity of tablet 600 16:45: 15:47 MEALS, [place] mg 00 :50 First dose Medical (after Branch last reorder) on 11/07/20 at 1145, Until Discontinu ed, MARCIN ibuprofen 2020- No 600mg 600 mg, Uni vers (IBU) 11-07 Oral, TID ity of tablet 600 16:45: 15:47 MEALS, [place] mg 00 :50 First dose Medical (after Branch last reorder) on 11/07/20 at 1145, Until Discontinu ed, MARCIN acetaminoph 2020- No 650mg 650 mg, U nivers en 11-07 Oral, ity of (TYLENOL) 15:35: 16:33 Q6HPRN, [place] tablet 650 06 :12 Starting Medic al mg Sat Branch 11/07/20 at 1035, Until 11/07/20 at 1133, Routine, Temp > 38.5 C acetaminoph 2020- No 650mg 650 mg, U nivers en 11-07 Oral, ity of (TYLENOL) 15:35: 16:33 Q6HPRN, [place] tablet 650 06 :12 Starting Medic al mg [facility] Branch 11/07/20 at 1035, Until [facility] 11/07/20 at 1133, Routine, Temp > 38.5 C benzonatate 2020-0 Yes 200mg 200 mg, Un raghav (TESSALON 8-14 Oral, TID, ity of PERLES) 15:30: First dose [place] capsule 200 00 on Sat Medica l mg 11/07/20 at Branch 1030, Until Discontinu ed, Routine benzonatate 2021-0 Yes 200mg 200 mg, Un raghav (TESSALON 8-14 Oral, TID, ity of PERLES) 15:30: First dose [place] capsule 200 00 on Sat Medica l mg 11/07/20 at Branch 1030, Until Discontinu ed, Routine enoxaparin 202-0 Yes 40mg 40 mg, Unive rs (LOVENOX) 8-14 Subcutaneo ity of injection 14:00: [place], [place]ILY, [place] 40 mg 00 First dose Medical on [facility] Branch 11/07/20 at 0900, Until Discontinu ed, Routine enoxaparin 2020-0 Yes 40mg 40 mg, Unive rs (LOVENOX) 8-14 Subcutaneo ity of injection 14:00: [place], [place]ILY, [place] 40 mg 00 First dose Medical on [facility] Branch 11/07/20 at 0900, Until Discontinu ed, Routine levothyroxi 2020-0 Yes 25ug 25 mcg, Uni vers ne 8-14 Oral, ity of (SYNTHROID) 11:00: QAM-0600, [place] tablet 25 00 First dose Medi [place] mcg on [facility] Branch 11/07/20 at 0600, Until Discontinu ed, Routine levothyroxi 2020-0 Yes 25ug 25 mcg, Uni vers ne 8-14 Oral, ity of (SYNTHROID) 11:00: QAM-0600, [place] tablet 25 00 First dose Medi [place] mcg on [facility] Branch 11/07/20 at 0600, Until Discontinu ed, Routine albuterol-i 2020-0 Yes 1{puff} 1 Puff, Univers pratropium 8-14 Inhalation ity of (COMBIVENT 07:30: , Q6H, [place] RESPIMAT) 00 First dose Medi [place] 20-100 on Sat Branch mcg/actuati 11/07/20 at on inhaler 0230, 1 Puff Until Discontinu ed, Routine
Is this order for a patient with suspected or confirmed COVID-19 infection? Yes albuterol-i 2020-0 Yes 1{puff} 1 Puff, Univers pratropium 8 Inhalation ity of (COMBIVENT 07:30: , Q6H, [place] RESPIMAT) 00 First dose Medi [place]ott 20-100 on Sat Branch mcg/actuati 11/07/20 at on inhaler 0230, 1 Puff Until Discontinu ed, Routine
Is this order for a patient with suspected or confirmed COVID-19 infection? Yes ondansetron 2020-0 Yes 4mg 4 mg, Slow Univers (ZOFRAN 8-14 IV Push, ity of (PF)) 07:17: Q6HPRN, [place] injection 4 34 Starting Medi [place]ott mg Sat Branch 11/07/20 at 0217, Until Discontinu ed, Routine, Nausea and Vomiting (N/V) ondansetron 2020-0 Yes 4mg 4 mg, Slow Univers (ZOFRAN 8-14 IV Push, ity of (PF)) 07:17: Q6HPRN, [place] injection 4 34 Starting Medi [place]ott mg Sat Branch 11/07/20 at 0217, Until Discontinu ed, Routine, Nausea and Vomiting (N/V) glucagon 2020-0 Yes 1mg 1 mg, Univers (GLUCAGEN 11-07 Intramuscu ity of DIAGNOSTIC 07:15: [place], [place]N, [place] KIT) 26 Starting Medical injection 1 Sat Branch mg 11/07/20 at 0215, Until Discontinu ed, MARCIN, Blood Glucose < or = 70 mg/dL and patient is unable to swallow or has mental changes. dextrose 50 2020-0 Yes 25mL 25 mL, Univ ers % in water 11-07 Slow IV ity of (D50W) 07:15: Push, PRN, [place] injection 26 Starting Medica l 25 mL Sat Branch 11/07/20 at 0215, Until Discontinu ed, MARCIN, Blood Glucose < or = 70 mg/dL and patient is unable to swallow or has mental status changes. glucagon 2021-0 Yes 1mg 1 mg, Univers (GLUCAGEN 11-07 Intramuscu ity of DIAGNOSTIC 07:15: [place]N, [place] KIT) 26 Starting Medical injection 1 Sat Branch mg 11/07/20 at 0215, Until Discontinu ed, MARCIN, Blood Glucose < or = 70 mg/dL and patient is unable to swallow or has mental changes. dextrose 50 Yes 25mL 25 mL, Univ ers % in water 11-07 Slow IV ity of (D50W) 07:15: Push, PRN, [place] injection 26 Starting Medica l 25 mL Sat Branch 11/07/20 at 0215, Until Discontinu ed, MARCIN, Blood Glucose < or = 70 mg/dL and patient is unable to swallow or has mental status changes. NaCl 0.9% 2020- No 1000mL at 999 Uni vers (NS) bolus 11-07 08-14 mL/hr, ity of infusion 00:30: 00:31 1,000 mL, [place] 1,000 mL 00 :00 IV Medical Infusion, Branch ONCE, 1 dose, 11/06/20 at 1930, STAT NaCl 0.9% 2020- No 1000mL at 999 Uni vers (NS) bolus 11-07 08-14 mL/hr, ity of infusion 00:30: 00:31 1,000 mL, [place] 1,000 mL 00 :00 IV Medical Infusion, Branch ONCE, 1 dose, 11/06/20 at 1930, STAT iopamidol 2020- No [id number] 100mL 100 mL, Univers (ISOVUE 11-06 Intravenou ity o f 370-500 mL) 23:15: 21:58 s, ONCE, 1 [place] injection 00 :00 dose, Fri Medic al 100 mL 11/06/20 at Branch 1815, Routine iopamidol 2020- No [id number] 100mL 100 mL, Univers (ISOVUE 11-06 Intravenou ity o f 370-500 mL) 23:15: 21:58 s, ONCE, 1 [place] injection 00 :00 dose, Fri Medic al 100 mL 11/06/20 at Branch 1815, Routine imdevimab 2020- No IV Univers ([id number]) 11-06 Infusion, it y of 600 mg, 22:15: 22:35 ONCE, [place] casirivimab 00 :00 11/06/20 at [facility] ([id number]) 1715, For Bra nch 600 mg in 1 NaCl 0.9% dose
Ad (NS) 60 mL brick maker infusion as an IV infusion via pump or gravity through an intravenou s line containing a sterile, in-line or add-on 0.2-micron polyethers ulfone (PES) filter. Stable 36 hours refrigerat ed; 4 hours at room temperatur e.
imdevimab 2020- No IV Univers ([id number]) 11-06 Infusion, it y of 600 mg, 22:15: 22:35 ONCE, Fri [place] casirivimab 00 :00 11/06/20 at [facility] ([id number]) 1715, For Bra nch 600 mg in 1 NaCl 0.9% dose
Ad (NS) 60 mL brick maker infusion as an IV infusion via pump or gravity through an intravenou s line containing a sterile, in-line or add-on 0.2-micron polyethers ulfone (PES) filter. Stable 36 hours refrigerat ed; 4 hours at room temperatur e.
ibuprofen 2020- No 800mg 800 mg, Uni vers (IBU) 11-06 Oral, ity of tablet 800 22:00: 21:13 ONCE, 1 [place] mg 00 :00 dose, [place] [facility] 11/06/20 at Branch 1700, MARCIN acetaminoph 2020- No 1000mg 1,000 mg, Univers en 11-06 Oral, ity of (TYLENOL) 22:00: 21:12 ONCE, 1 [place] tablet 00 :00 dose, [facility] 1,000 mg 11/06/20 at [facility] h 1700, Routine dexamethaso 2020- No 10mg 10 mg, IV Univers ne 11-06 Push, ity of (DECADRON 22:00: 21:12 ONCE, 1 [place] PHOSPHATE) 00 :00 dose, Fri Medi scott injection 11/06/20 at Bran ch 10 mg 1700, STAT ibuprofen 2020- No 800mg 800 mg, Uni vers (IBU) 11-06 Oral, ity of tablet 800 22:00: 21:13 ONCE, 1 [place] mg 00 :00 dose, Fri Medical 11/06/20 at Branch 1700, MARCIN acetaminoph 2020- No 1000mg 1,000 mg, Univers en 11-06 Oral, ity of (TYLENOL) 22:00: 21:12 ONCE, 1 [place] tablet 00 :00 dose, Mon Medical 1,000 mg 11/06/20 at Branc h 1700, Routine dexamethaso 2020- No 10mg 10 mg, IV Univers ne 11-06 Push, ity of (DECADRON 22:00: 21:12 ONCE, 1 [place] PHOSPHATE) 00 :00 dose, Mon Medi scott injection 11/06/20 at Bran ch 10 mg 1700, STAT casirivimab 2020- No [id number] 1200mg Univers -imdevimab 11-06 ity of (REGEN-COV 21:30: 09:29 [place] (EUA)) 00 :00 Medical 1,200 mg in Branch NaCl 0.9% (NS) 60 mL IV infusion casirivimab 2020- No [id number] 1200mg Univers -imdevimab 11-06 ity of (REGEN-COV 21:30: 09:29 [place] (EUA)) 00 :00 Medical 1,200 mg in Branch NaCl 0.9% (NS) 60 mL IV infusion casirivimab 0 2020- No [id number] 1200mg Univers -imdevimab 11-06 ity of (REGEN-COV 21:30: 09:29 [place] (EUA)) 00 :00 Medical 1,200 mg in Branch NaCl 0.9% (NS) 60 mL IV infusion cholecalcif 2018-0 Yes 1{capsu Take 1 U nivers ravindra, 7-16 le} capsule by ity of vitamin D3, 13:35: mouth [place] 2,000 unit 30 daily. MD adalberto xie [facility] lisinopril Yes 40mg Take 40 mg U nivers (PRINIVIL,Z 7-16 by mouth ity of ESTRIL) 40 13:35: daily. [place] mg tablet 30 MD Aakash xie [facility] pioglitazon Yes 1{tbl} Take 1 Un raghav e-metFORMIN 7-16 tablet by ity of (ACTOPLUS 13:35: mouth [place] MET) 15-850 30 daily. Pt mg per unsure if Anderso tablet taking n Actos or Cancer Actosplus. Center Will call to clarify atorvastati Yes 1{tbl} Take 1 Un raghav n (LIPITOR) 7-16 tablet by ity of 20 mg 13:35: mouth [place] tablet 29 daily. MD Aakash xie [facility] pioglitazon Yes 30{tbl} Take 30 Univers e (ACTOS) 7-16 tablets by ity of 30 mg 13:35: mouth [place] tablet 29 daily. Pt can't Aakash recall if [facility] Actos or Actosplus. Will clarify sitaGLIPtin Yes 100mg Take 100 U nivers (JANUVIA) 3-01 mg by ity of 100 mg 00:00: mouth [place] tablet 00 daily. MD Aakash xie [facility] metFORMIN Yes 1{tbl} Take 1 Univ ers (GLUCOPHAGE 4-01 tablet by ity of ) 1000 mg 00:00: mouth [place] tablet 00 daily. MD Aakash xie [facility] levothyroxi Yes [id number] 25ug Take 1 Tab Univers ne 6-29 by mouth ity of (SYNTHROID) 00:00: every [place] 25 mcg 00 morning. Medical tablet Branch levothyroxi Yes [id number] 25ug Take 1 Tab Univers ne 6-29 by mouth ity of (SYNTHROID) 00:00: every [place] 25 mcg 00 morning. Medical tablet Branch levothyroxi Yes [id number] 25ug Take 1 Tab Univers ne 6-29 by mouth ity of (SYNTHROID) 00:00: every [place] 25 mcg 00 morning. Medical tablet Branch levothyroxi Yes [id number] 25ug Take 1 Tab Univers ne 6-29 by mouth ity of (SYNTHROID) 00:00: every [place] 25 mcg 00 morning. Medical tablet Branch levothyroxi Yes [id number] 25ug Take 1 Tab Univers ne 6-29 by mouth ity of (SYNTHROID) 00:00: every [place] 25 mcg 00 morning. Medical tablet Branch cyclobenzap Yes Univer s rine 4-16 ity of (FLEXERIL) 00:00: [place] 10 mg 00 Medical tablet Branch meloxicam Yes 15mg Take 15 mg Un raghav (MOBIC) 15 4-16 by mouth ity o f mg tablet 00:00: daily. [place] [facility] cyclobenzap Yes Univer s rine 4-16 ity of (FLEXERIL) 00:00: [place] 10 mg 00 Medical tablet Branch meloxicam 0 Yes 15mg Take 15 mg Un raghav (MOBIC) 15 4-16 by mouth ity o f mg tablet 00:00: daily. [place] [facility] cyclobenzap Yes Univer s rine 4-16 ity of (FLEXERIL) 00:00: [place] 10 mg 00 Medical tablet Branch meloxicam 0 Yes 15mg Take 15 mg Un raghav (MOBIC) 15 4-16 by mouth ity o f mg tablet 00:00: daily. [place] [facility] cyclobenzap Yes Univer s rine 4-16 ity of (FLEXERIL) 00:00: [place] 10 mg 00 Medical tablet Branch meloxicam 0 Yes 15mg Take 15 mg Un raghav (MOBIC) 15 4-16 by mouth ity o f mg tablet 00:00: daily. [place] [facility] cyclobenzap Yes Univer s rine 4-16 ity of (FLEXERIL) 00:00: [place] 10 mg 00 Medical tablet Branch meloxicam 0 Yes 15mg Take 15 mg Un raghav (MOBIC) 15 4-16 by mouth ity o f mg tablet 00:00: daily. [address] Vital Signs Vital Name Observation Time Observation Value Comments Source Body temperature 2020-11-17 20:00:00 36.89 [place] Univ ers[facility] of [facility] Systolic blood 2020-11-17 16:06:00 101 mm[Hg] Univer sity of pressure [facility] Diastolic blood 2020-11-17 16:06:00 69 mm[Hg] Unive rsity of pressure [facility] Heart rate 2020-11-17 16:06:00 59 /min [facility] Respiratory rate 2020-11-17 16:06:00 18 /min [facility] in 2020-11-17 16:06:00 95 /min [facility] Arterial blood by [facility] Pulse oximetry Branch Body weight 2020-11-14 09:02:00 87 kg Universi ty [facility] BMI 2020-11-14 09:02:00 32.92 kg/m2 [facility] Body height 2020-11-07 02:32:00 162.6 cm [facility] Body height 2020-11-06 20:23:00 165.1 cm [facility] Body weight 2020-11-06 20:23:00 88.451 kg [facility] BMI 2020-11-06 20:23:00 32.45 kg/m2 [facility] Procedures Procedure Date / Time Performing Clinician Source Performed COMP. METABOLIC PANEL 2020-11-14 09:13:00 Bney Adin [facility] ([id number]) [facility] COMP. METABOLIC PANEL 2020-11-13 11:31:00 [facility][id number] COMP. METABOLIC PANEL 2020-11-12 11:14:00 Adin Swan [facility] ([id number]) [facility] CBC WITH DIFF 2020-11-12 11:14:00 Adin Swan [facility] MAGNESIUM 2020-11-11 09:52:00 Adin Swan [facility] COMP. METABOLIC PANEL 2020-11-11 09:52:00 Adin Swan [facility] ([id number]) [facility] COMP. METABOLIC PANEL 2020-11-10 10:03:00 Rose Hernandez [facility] ([id number]) [facility] CBC WITH DIFF 2020-11-10 10:03:00 Adin Swan [facility] N-TERMINAL PRO-BNP 2020-11-10 10:03:00 Rose Hernandez [facility] COMP. METABOLIC PANEL 2020-11-09 09:02:00 [facility] ([id number]) Medical [place] N-TERMINAL PRO-BNP 2020-11-09 09:02:00 Mary lissette [facility] COMP. METABOLIC PANEL 2020-11-08 10:06:00 [facility] ([id number]) [facility] Branch CBC WITH DIFF 2020-11-08 10:06:[address] [facility] N-TERMINAL PRO-BNP 2020-11-08 10:06:00 Mary [facility] ACUTE CARE VENOUS BLOOD 2020-11-08 10:05:00 Mary [facility] ACUTE CARE VENOUS BLOOD 2020-11-07 15:42:00 [facility] PHOSPHORUS 2020-11-07 15:36:[address] [facility] CREATINE KINASE 2020-11-07 15:36:[address] [facility] URIC ACID 2020-11-07 15:36:[address] [facility] MAGNESIUM 2020-11-07 15:36:[address] [facility] TROPONIN I 2020-11-07 15:36:[address] [facility] THYROID STIMULATING 2020-11-07 15:36:00 Mary lissette [facility] HORMONE [facility] Branch COMP. METABOLIC PANEL 2020-11-07 15:36:00 Mary lissette [facility] ([id number]) Medical Branch LIPID PANEL 2020-11-07 15:36:00 Mary lissette [facility] ([id number])(TOTAL Medical Branch CHOLESTEROL, TRIGLYCERIDES, HDL) N-TERMINAL PRO-BNP 2020-11-07 15:36:00 Mary [facility] VITAMIN D, 25-OH 2020-11-07 15:36:00 Mary [facility] CBC WITH DIFF 2020-11-07 15:35:00 Rose Hernandez [place] o f [facility] GLYCOSYLATED HEMOGLOBIN 2020-11-07 15:35:00 Rose Hernandez [facility] (A1C) [facility] URINALYSIS 2020-11-06 23:29:00 Priyanka Ivey [facility] CT CHEST PULMONARY 2020-11-06 22:02:23 Priyanka Ivey [facility] ANGIOGRAM [facility] Branch HB ECG ROUTINE & RHYTHM 2020-11-06 21:25:45 Priyanka Ivey [facility] VITAMIN B12, LEVEL 2020-11-06 21:19:00 Rose Hernandez [facility] C-REACTIVE PROTEIN 2020-11-06 21:19:00 Priyanka Ivey [facility] TROPONIN I 2020-11-06 21:19:00 [facility] COMP. METABOLIC PANEL 2020-11-06 21:19:00 Priyanka Ivey [facility] ([id number]) [facility] CBC WITH DIFF 2020-11-06 21:19:00 [facility] D-DIMER 2020-11-06 21:19:00 [facility] N-TERMINAL PRO-BNP 2020-11-06 21:19:00 Priyanka Ivey [facility] PROCALCITONIN 2020-11-06 21:19:00 [facility] Plan of Care Planned Activity Planned Date Details Comments Source Future Scheduled 2021-09-29 COVID-19 Vaccination [facility] Test 05:42:09 (#1) [code = COVID-19 And frances Cancer Vaccination (#1)] Center Encounters Start End Encounter Admission Attending Care Care Encounter Source Date/Time Date/Time Type Type Clinicians Facility Department ID 2021-01-25 Emergency [facility] [id number] [facility] 2022-05-16 Outpatient KATIE ZARAGOZA [id number] Katie 10:15:00 10:15:00 VIVIEN javed 2022-05-16 2022-05-16 Outpatient KATIE ZARAGOZA [id number] Katie 09:30:00 09:30:00 VIVIEN javed 2021-11-18 2021-11-18 Outpatient FOG_A_Provi AOSM AOSM [id number] Talia 00:00:00 00:00:00 mara [id number] [facility] 2021-10-06 2021-10-06 Outpatient SARAH_JANUSZ ZELAYA [facility] [id number] [place] 02:41:00 02:41:00 0713 [facility] 2020-11-18 2020-11-18 Transition Batsheva Eguene [id number] Univers 00:00:00 00:00:00 of Care Olamide Ramos [id number] i ty of [place] 4.2.7.2.686 [id number] 403 Branch 2020-11-06 2020-11-17 [facility] 1.2.840. 114 [id number] Univers 15:50:00 16:45:00 Encounter Sami Hong 350.1.13.10 [place] [id number] [facility] 080 Branch 2020-11-06 2020-11-06 Nurse Therapy, Adc Covid Infusion [facility] [id number] Univers 14:03:27 15:03:27 Visit Francisco Pulido 350.1.13.10 ity [facility] 4.2.7.2.686 [facility] Surgical [id number] Med [facility] 053 Branch 2020-11-06 2020-11-06 Outpatient Sandra PULIDO [facility] [id number] Univers 15:00:00 15:00:00 FRANCISCO ansari [facility] 2020-02-12 2020-02-12 Outpatient Ena MMG MMG [id number] [place] 02:35:00 02:35:00 1118 [facility] Results Test Description Test Time Test Comments Results Result Comments Source COMP. METABOLIC PANEL ([id number]) 2020-11-14 09:52:34 Test Item Value Reference Range Interpretation Comme nts NA (test code = 4102128511) 139 mmol/L 135-145 K (test code = 1438506714) 4.6 mmol/L 3.5-5.0 CL (test code = 1425770643) 99 mmol/L 98-108 CO2 TOTAL (test code = 2072142151) 31 mmol/L 23-31 AGAP (test code = 9225382417) 2-16 BUN (test code = 6411372622) 21 mg/dL 7-23 GLUCOSE (test code = 4454494625) 128 mg/dL 70-110 H CREATININE (test code = 0.49 mg/dL 0.50-1.04 L 7317713316) TOTAL BILI (test code = 0.5 mg/dL 0.1-1.7 8434060329) CALCIUM (test code = 5148674124) 9.5 mg/dL 8.6-10.6 T PROTEIN (test code = 0792195571) 5.9 g/dL 6.3-8.2 L ALBUMIN (test code = 9252434163) 3.2 g/dL 3.5-5.0 L ALK PHOS (test code = 4780530141) 91 U/L 34-122 ALTv (test code = 1742-6) 137 U/L 5-35 H AST(SGOT) (test code = 0453039871) 30 U/L 13-40 eGFR (test code = 9267511823) mL/min/1.73m2 GYPSY (test code = GYPSY) Association of Glomerular Filtration Rate (GFR) and Staging of Kidney Disease* + +-------- + ------+| GFR (mL/min/1.73 m2) ?| With Kidney Damage ?| ?Without Kidney Damage+ +-- + +| ?>90 ?| ?Stage one ?| ? Normal ?+ +------- + -------+| ?60-89 ?| ?Stage two ?| ? Decreased GFR ? + +-------- + ------+| ?30-59 ?| ?Stage three ?| ? Stage three ? + +-------- + ------+| ?15-29 ?| ?Stage four ? | ? Stage four ?+ +------- + -------+| ?<15 (or dialysis) ? ?| ?Stage five ? | ? Stage five ?+ +------- + -------+ *Each stage assumes the associated GFR level has been in effect for at least three months. ?Stages 1 to 5, with or without kidney disease, indicate chronic kidney disease. Notes: Determination of stages one and two (with eGFR >59mL/min/1.73 m2) requires estimation of kidney damage for at least three months as defined by structural or functional abnormalities of the kidney, manifested by either:Pathological abnormalities or Markers of kidney damage (including abnormalities in the composition of the blood or urine or abnormalities in imaging tests). Lab Interpretation (test code = Abnormal 51872-4) [facility]. METABOLIC PANEL ([id number])2020-11-14 09:52:34 Test Item Value Reference Range Interpretation Comments NA (test code = 7499797292) 139 mmol/L 135-145 K (test code = 0573290698) 4.6 mmol/L 3.5-5.0 CL (test code = 4840206614) 99 mmol/L 98-108 CO2 TOTAL (test code = 8865236950) 31 mmol/L 23-31 AGAP (test code = 9994608905) 2-16 BUN (test code = 7019541868) 21 mg/dL 7-23 GLUCOSE (test code = 7803477700) 128 mg/dL 70-110 H CREATININE (test code = 0.49 mg/dL 0.50-1.04 L 4255291887) TOTAL BILI (test code = 0.5 mg/dL 0.1-1.3 8297361635) CALCIUM (test code = 3822276850) 9.5 mg/dL 8.6-10.6 T PROTEIN (test code = 7145386623) 5.9 g/dL 6.3-8.2 L ALBUMIN (test code = 4936637469) 3.2 g/dL 3.5-5.0 L ALK PHOS (test code = 6987846444) 91 U/L 34-122 ALTv (test code = 1742-6) 137 U/L 5-35 H AST(SGOT) (test code = 3169168097) 30 U/L 13-40 eGFR (test code = 6066401932) mL/min/1.73m2 GYPSY (test code = GYPSY) Lab Interpretation (test code = Abnormal 84334-1) [facility]. METABOLIC PANEL ([id number])2020-11-13 13:05:31 Test Item Value Reference Range Interpretation Comments NA (test code = 138 mmol/L 135-145 5801841437) K (test code = 4.5 mmol/L 3.5-5.0 9862526385) CL (test code = 100 mmol/L 98-108 9805397505) CO2 TOTAL (test code = 30 mmol/L 23-31 4778183635) AGAP (test code = 2-16 9651473867) BUN (test code = 21 mg/dL 7-23 0021349523) GLUCOSE (test code = 109 mg/dL 70-110 7028777421) CREATININE (test code = 0.47 mg/dL 0.50-1.04 L 4066006612) TOTAL BILI (test code = 0.6 mg/dL 0.1-1.3 4822115633) CALCIUM (test code = 9.3 mg/dL 8.6-10.6 3234482893) T PROTEIN (test code = 6.0 g/dL 6.3-8.2 L 8848772968) ALBUMIN (test code = 3.1 g/dL 3.5-5.0 L 8376005547) ALK PHOS (test code = 101 U/L 34-122 2821253648) ALTv (test code = 191 U/L 5-35 H 1742-6) AST(SGOT) (test code = 41 U/L 13-40 H 6561458442) eGFR (test code = mL/min/1.73m2 0162516471) GYPSY (test code = GYPSY) Association of Glomerular Filtration Rate (GFR) and Staging of Kidney Disease* + --+ --+ ------+| GFR (mL/min/1.73 m2) ?| With Kidney Damage ?| ?Without Kidney Damage+ --------+ --------+ +| ?>90 ?| ?Stage one ?| ? Normal ?+ ---+ ---+ -------+| ?60-89 ?| ?Stage two ?| ? Decreased GFR ? + --+ --+ ------+| ?30-59 ?| ?Stage three ?| ? Stage three ? + --+ --+ ------+| ?15-29 ?| ?Stage four ? | ? Stage four ?+ ---+ ---+ -------+| ?<15 (or dialysis) ? ?| ?Stage five ? | ? Stage five ?+ ---+ ---+ -------+ *Each stage assumes the associated GFR level has been in effect for at least three months. ?Stages 1 to 5, with or without kidney disease, indicate chronic kidney disease. Notes: Determination of stages one and two (with eGFR >59mL/min/1.73 m2) requires estimation of kidney damage for at least three months as defined by structural or functional abnormalities of the kidney, manifested by either:Pathological abnormalities or Markers of kidney damage (including abnormalities in the composition of the blood or urine or abnormalities in imaging tests). Lab Interpretation Abnormal (test code = 56763-8) [facility]. METABOLIC PANEL ([id number])2020-11-13 13:05:31 Test Item Value Reference Range Interpretation Comments NA (test code = 8437747571) 138 mmol/L 135-145 K (test code = 7169592038) 4.5 mmol/L 3.5-5.0 CL (test code = 4232452744) 100 mmol/L 98-108 CO2 TOTAL (test code = 9932588399) 30 mmol/L 23-31 AGAP (test code = 6643393426) 2-16 BUN (test code = 4776762493) 21 mg/dL 7-23 GLUCOSE (test code = 3589315556) 109 mg/dL 70-110 CREATININE (test code = 0.47 mg/dL 0.50-1.04 L 1126785975) TOTAL BILI (test code = 0.6 mg/dL 0.1-1.1 8579644336) CALCIUM (test code = 4802015292) 9.3 mg/dL 8.6-10.6 T PROTEIN (test code = 6210472944) 6.0 g/dL 6.3-8.2 L ALBUMIN (test code = 2023723237) 3.1 g/dL 3.5-5.0 L ALK PHOS (test code = 9406553350) 101 U/L 34-122 ALTv (test code = 1742-6) 191 U/L 5-35 H AST(SGOT) (test code = 9531029542) 41 U/L 13-40 H eGFR (test code = 4140509057) mL/min/1.73m2 GYPSY (test code = GYPYS) Lab Interpretation (test code = Abnormal 49651-3) [facility] WITH [id number] 13:23:48 Test Item Value Reference Range Interpretation Comments WBC (test code = See_Comment [Automated 3390-2) message] The sy stem which generated this result transmitted reference range : 4.30 - 11.10 10*3/?L. The reference range was not used to interpret this result as normal/abnormal . RBC (test code = See_Comment [Automated 789-8) message] The sy stem which generated this result transmitted reference range : 3.93 - 5.25 10*6/?L. The reference range was not used to interpret this result as normal/abnormal . HGB (test code = 13.8 g/dL 11.6-15.0 718-7) HCT (test code = 41.7 % 35.7-45.2 4544-3) MCV (test code = 90.8 fL 80.6-95.5 787-2) MCH (test code = 30.1 pg 25.9-32.8 785-6) MCHC (test code = 33.1 g/dL 31.6-35.1 786-4) RDW-SD (test code = 39.9 fL 39.0-49.9 95262-9) RDW-CV (test code = 12.0 % 12.0-15.5 788-0) PLT (test code = See_Comment [Automated 777-3) message] The sy stem which generated this result transmitted reference range : 166 - 358 10*3/ ?L. The reference r leann was not used to interpret this result as normal/abnormal . MPV (test code = 10.0 fL 9.5-12.9 75204-4) NRBC/100 WBC (test See_Comment [Automat ed code = 7879190239) message] The system which generated this result transmitted reference range : 0.0 - 10.0 /100 WBCs. The refer ence range was not u sed to interpret th is result as normal/abnormal . NRBC x10^3 (test code <0.01 See_Comment [Auto mated = 0282990965) message] The s ystem which generated this result transmitted reference range : 10*3/?L. The reference range was not used to interpret this result as normal/abnormal . GRAN MAT (NEUT) % 78.7 % (test code = 770-8) IMM GRAN % (test code 2.90 % = 7241565030) LYMPH % (test code = 14.0 % 736-9) MONO % (test code = 4.0 % 5905-5) EOS % (test code = 0.2 % 713-8) BASO % (test code = 0.2 % 706-2) GRAN MAT x10^3(ANC) 8.56 10*3/uL 1.88-7.09 H (test code = 2171327921) IMM GRAN x10^3 (test 0.32 10*3/uL 0.00-0.06 H code = 6304135664) LYMPH x10^3 (test code 1.53 10*3/uL 1.32-3.29 = 731-0) MONO x10^3 (test code 0.44 10*3/uL 0.33-0.92 = 742-7) EOS x10^3 (test code = <0.03 0.03-0.39 L 711-2) BASO x10^3 (test code <0.03 0.01-0.07 = 704-7) BANDS (test code = Increased A 5379383862) Lab Interpretation Abnormal (test code = 31678-2) [facility] WITH [id number] 13:23:48 Test Item Value Reference Range Interpretation Comments WBC (test code = See_Comment [Automated 9490-2) message] The sy stem which generated this result transmitted reference range : 4.30 - 11.10 10*3/?L. The reference range was not used to interpret this result as normal/abnormal . RBC (test code = See_Comment [Automated 329-8) message] The sy stem which generated this result transmitted reference range : 3.93 - 5.25 10*6/?L. The reference range was not used to interpret this result as normal/abnormal . HGB (test code = 13.8 g/dL 11.6-15.0 718-7) HCT (test code = 41.7 % 35.7-45.2 4544-3) MCV (test code = 90.8 fL 80.6-95.5 787-2) MCH (test code = 30.1 pg 25.9-32.8 785-6) MCHC (test code = 33.1 g/dL 31.6-35.1 786-4) RDW-SD (test code = 39.9 fL 39.0-49.9 27520-9) RDW-CV (test code = 12.0 % 12.0-15.5 788-0) PLT (test code = See_Comment [Automated 777-3) message] The sy stem which generated this result transmitted reference range : 166 - 358 10*3/ ?L. The reference r leann was not used to interpret this result as normal/abnormal . MPV (test code = 10.0 fL 9.5-12.9 82746-8) NRBC/100 WBC (test See_Comment [Automat ed code = 2508508468) message] The system which generated this result transmitted reference range : 0.0 - 10.0 /100 WBCs. The refer ence range was not u sed to interpret th is result as normal/abnormal . NRBC x10^3 (test code <0.01 See_Comment [Auto mated = 7726095933) message] The s ystem which generated this result transmitted reference range : 10*3/?L. The reference range was not used to interpret this result as normal/abnormal . GRAN MAT (NEUT) % 78.7 % (test code = 770-8) IMM GRAN % (test code 2.90 % = 7499299152) LYMPH % (test code = 14.0 % 736-9) MONO % (test code = 4.0 % 5905-5) EOS % (test code = 0.2 % 713-8) BASO % (test code = 0.2 % 706-2) GRAN MAT x10^3(ANC) 8.56 10*3/uL 1.88-7.09 H (test code = 8396174604) IMM GRAN x10^3 (test 0.32 10*3/uL 0.00-0.06 H code = 4679903501) LYMPH x10^3 (test code 1.53 10*3/uL 1.32-3.29 = 731-0) MONO x10^3 (test code 0.44 10*3/uL 0.33-0.92 = 742-7) EOS x10^3 (test code = <0.03 0.03-0.39 L 711-2) BASO x10^3 (test code <0.03 0.01-0.07 = 704-7) BANDS (test code = Increased A 9689994422) Lab Interpretation Abnormal (test code = 39132-1) [facility]. METABOLIC PANEL ([id number])2020-11-12 12:39:40 Test Item Value Reference Range Interpretation Comments NA (test code = 136 mmol/L 135-145 6163435216) K (test code = 4.2 mmol/L 3.5-5.0 9035308985) CL (test code = 99 mmol/L 98-108 3579720466) CO2 TOTAL (test code = 32 mmol/L 23-31 H 4361993591) AGAP (test code = 2-16 9960579645) BUN (test code = 20 mg/dL 7-23 3631684220) GLUCOSE (test code = 87 mg/dL 70-110 6744376038) CREATININE (test code = 0.40 mg/dL 0.50-1.04 L 3641910672) TOTAL BILI (test code = 0.9 mg/dL 0.1-1.9 4741839607) CALCIUM (test code = 8.6 mg/dL 8.6-10.6 2237632253) T PROTEIN (test code = 5.4 g/dL 6.3-8.2 L 0765121936) ALBUMIN (test code = 2.7 g/dL 3.5-5.0 L 0262802746) ALK PHOS (test code = 79 U/L 34-122 1988062287) ALTv (test code = 233 U/L 5-35 H 1742-6) AST(SGOT) (test code = 66 U/L 13-40 H 9096347972) eGFR (test code = mL/min/1.73m2 4412373279) GYPSY (test code = GPYSY) Association of Glomerular Filtration Rate (GFR) and Staging of Kidney Disease* + --+ --+ ------+| GFR (mL/min/1.73 m2) ?| With Kidney Damage ?| ?Without Kidney Damage+ --------+ --------+ +| ?>90 ?| ?Stage one ?| ? Normal ?+ ---+ ---+ -------+| ?60-89 ?| ?Stage two ?| ? Decreased GFR ? + --+ --+ ------+| ?30-59 ?| ?Stage three ?| ? Stage three ? + --+ --+ ------+| ?15-29 ?| ?Stage four ? | ? Stage four ?+ ---+ ---+ -------+| ?<15 (or dialysis) ? ?| ?Stage five ? | ? Stage five ?+ ---+ ---+ -------+ *Each stage assumes the associated GFR level has been in effect for at least three months. ?Stages 1 to 5, with or without kidney disease, indicate chronic kidney disease. Notes: Determination of stages one and two (with eGFR >59mL/min/1.73 m2) requires estimation of kidney damage for at least three months as defined by structural or functional abnormalities of the kidney, manifested by either:Pathological abnormalities or Markers of kidney damage (including abnormalities in the composition of the blood or urine or abnormalities in imaging tests). Lab Interpretation Abnormal (test code = 11926-7) [facility] ([id number][facility]2020-11-12 12:39:40 Test Item Value Reference Range Interpretation Comments NA (test code = 7924657188) 136 mmol/L 135-145 K (test code = 5114337645) 4.2 mmol/L 3.5-5.0 CL (test code = 7289237305) 99 mmol/L 98-108 CO2 TOTAL (test code = 6996524436) 32 mmol/L 23-31 H AGAP (test code = 8996282494) 2-16 BUN (test code = 6635076243) 20 mg/dL 7-23 GLUCOSE (test code = 6026937902) 87 mg/dL 70-110 CREATININE (test code = 0.40 mg/dL 0.50-1.04 L 9806418767) TOTAL BILI (test code = 0.9 mg/dL 0.1-1.6 0323317719) CALCIUM (test code = 7805905792) 8.6 mg/dL 8.6-10.6 T PROTEIN (test code = 4463220182) 5.4 g/dL 6.3-8.2 L ALBUMIN (test code = 7608179028) 2.7 g/dL 3.5-5.0 L ALK PHOS (test code = 5474039803) 79 U/L 34-122 ALTv (test code = 1742-6) 233 U/L 5-35 H AST(SGOT) (test code = 4908983692) 66 U/L 13-40 H eGFR (test code = 9235943516) mL/min/1.73m2 GYPSY (test code = GYPSY) Lab Interpretation (test code = Abnormal 16072-8) [facility] Test Item Value Reference Range Interpretation Comments MAGNESIUM (test code = 4476609544) 2.0 mg/dL 1.7-2.4 Lab Interpretation (test code = Normal 06546-2) [facility] Test Item Value Reference Range Interpretation Comments MAGNESIUM (test code = 7596187117) 2.0 mg/dL 1.7-2.4 Lab Interpretation (test code = Normal 89376-1) [facility] ([id number])2020-11-11 11:38:47 Test Item Value Reference Range Interpretation Comments NA (test code = 139 mmol/L 135-145 0180612082) K (test code = 4.2 mmol/L 3.5-5.0 1945186710) CL (test code = 100 mmol/L 98-108 0479511964) CO2 TOTAL (test code = 32 mmol/L 23-31 H 2310027453) AGAP (test code = 2-16 1043278462) BUN (test code = 21 mg/dL 7-23 3389497968) GLUCOSE (test code = 93 mg/dL 70-110 [id number]) CREATININE (test code = 0.50 mg/dL 0.50-1.04 7629187813) TOTAL BILI (test code = 0.7 mg/dL 0.1-1.3 9929706433) CALCIUM (test code = 8.9 mg/dL 8.6-10.6 2113196383) T PROTEIN (test code = 6.0 g/dL 6.3-8.2 L [id number]) ALBUMIN (test code = 3.0 g/dL 3.5-5.0 L 4446503787) ALK PHOS (test code = 89 U/L 34-122 0688955163) ALTv (test code = 344 U/L 5-35 H 1742-6) AST(SGOT) (test code = 149 U/L 13-40 H 5564661332) eGFR (test code = mL/min/1.73m2 8377028538) GYPSY (test code = GYPSY) Association of Glomerular Filtration Rate (GFR) and Staging of Kidney Disease* + --+ --+ ------+| GFR (mL/min/1.73 m2) ?| With Kidney Damage ?| ?Without Kidney Damage+ --------+ --------+ +| ?>90 ?| ?Stage one ?| ? Normal ?+ ---+ ---+ -------+| ?60-89 ?| ?Stage two ?| ? Decreased GFR ? + --+ --+ ------+| ?30-59 ?| ?Stage three ?| ? Stage three ? + --+ --+ ------+| ?15-29 ?| ?Stage four ? | ? Stage four ?+ ---+ ---+ -------+| ?<15 (or dialysis) ? ?| ?Stage five ? | ? Stage five ?+ ---+ ---+ -------+ *Each stage assumes the associated GFR level has been in effect for at least three months. ?Stages 1 to 5, with or without kidney disease, indicate chronic kidney disease. Notes: Determination of stages one and two (with eGFR >59mL/min/1.73 m2) requires estimation of kidney damage for at least three months as defined by structural or functional abnormalities of the kidney, manifested by either:Pathological abnormalities or Markers of kidney damage (including abnormalities in the composition of the blood or urine or abnormalities in imaging tests). Lab Interpretation Abnormal (test code = 33739-2) [facility] ([id number])2020-11-11 11:38:47 Test Item Value Reference Range Interpretation Comments NA (test code = 1922556724) 139 mmol/L 135-145 K (test code = 4512524345) 4.2 mmol/L 3.5-5.0 CL (test code = 7513679995) 100 mmol/L 98-108 CO2 TOTAL (test code = 3245427198) 32 mmol/L 23-31 H AGAP (test code = 0787692941) 2-16 BUN (test code = 7605652809) 21 mg/dL 7-23 GLUCOSE (test code = 9986679039) 93 mg/dL 70-110 CREATININE (test code = 0.50 mg/dL 0.50-1.04 7170721164) TOTAL BILI (test code = 0.7 mg/dL 0.1-1.9 5945245305) CALCIUM (test code = 2240723647) 8.9 mg/dL 8.6-10.6 T PROTEIN (test code = 6404827616) 6.0 g/dL 6.3-8.2 L ALBUMIN (test code = 1391116370) 3.0 g/dL 3.5-5.0 L ALK PHOS (test code = 4628601059) 89 U/L 34-122 ALTv (test code = 1742-6) 344 U/L 5-35 H AST(SGOT) (test code = 5402682921) 149 U/L 13-40 H eGFR (test code = 8598181957) mL/min/1.73m2 GYPSY (test code = GYPSY) Lab Interpretation (test code = Abnormal 52001-5) [facility] [id number] 10:50:21 Test Item Value Reference Range Interpretation Comments NT-proBNP (test code 424 pg/mL See_Comment H [Autom ated = 2027516431) message] The system which generated this result transmitted reference range : <=125. The reference range was not used to interpret this result as normal/abnormal . GYPSY (test code = GYPSY) Biotin has been reported to cause a negative bias, interpret results relative to patient's use of biotin. Lab Interpretation Abnormal (test code = 34417-1) [facility] [id number] 10:50:21 Test Item Value Reference Range Interpretation Comments NT-proBNP (test code = 424 pg/mL See_Comment H [Aut omated message] 4652997141) The system [employer] generated this result transmit amanda reference range : <=125. The refe rence range was not u sed to interpret th is result as normal/abnormal . GYPSY (test code = GYPSY) Lab Interpretation (test Abnormal code = 59831-9) [facility]. METABOLIC PANEL ([id number])2020-11-10 10:43:35 Test Item Value Reference Range Interpretation Comments NA (test code = 139 mmol/L 135-145 6586645965) K (test code = 4.5 mmol/L 3.5-5.0 9407379597) CL (test code = 103 mmol/L 98-108 5740211625) CO2 TOTAL (test code = 32 mmol/L 23-31 H 0328190963) AGAP (test code = 2-16 9185298910) BUN (test code = 25 mg/dL 7-23 H 4477915529) GLUCOSE (test code = 133 mg/dL 70-110 H 3054112704) CREATININE (test code = 0.53 mg/dL 0.50-1.04 2508025969) TOTAL BILI (test code = 0.7 mg/dL 0.1-1.1 7103020300) CALCIUM (test code = 8.8 mg/dL 8.6-10.6 5093414481) T PROTEIN (test code = 6.0 g/dL 6.3-8.2 L 2403430372) ALBUMIN (test code = 3.0 g/dL 3.5-5.0 L 2445466719) ALK PHOS (test code = 91 U/L 34-122 7594043412) ALTv (test code = 334 U/L 5-35 H 1742-6) AST(SGOT) (test code = 274 U/L 13-40 H 5918012469) eGFR (test code = mL/min/1.73m2 8029615589) GYPSY (test code = GYPSY) Association of Glomerular Filtration Rate (GFR) and Staging of Kidney Disease* + --+ --+ ------+| GFR (mL/min/1.73 m2) ?| With Kidney Damage ?| ?Without Kidney Damage+ --------+ --------+ +| ?>90 ?| ?Stage one ?| ? Normal ?+ ---+ ---+ -------+| ?60-89 ?| ?Stage two ?| ? Decreased GFR ? + --+ --+ ------+| ?30-59 ?| ?Stage three ?| ? Stage three ? + --+ --+ ------+| ?15-29 ?| ?Stage four ? | ? Stage four ?+ ---+ ---+ -------+| ?<15 (or dialysis) ? ?| ?Stage five ? | ? Stage five ?+ ---+ ---+ -------+ *Each stage assumes the associated GFR level has been in effect for at least three months. ?Stages 1 to 5, with or without kidney disease, indicate chronic kidney disease. Notes: Determination of stages one and two (with eGFR >59mL/min/1.73 m2) requires estimation of kidney damage for at least three months as defined by structural or functional abnormalities of the kidney, manifested by either:Pathological abnormalities or Markers of kidney damage (including abnormalities in the composition of the blood or urine or abnormalities in imaging tests). Lab Interpretation Abnormal (test code = 80049-5) [facility]. METABOLIC PANEL ([id number])2020-11-10 10:43:35 Test Item Value Reference Range Interpretation Comments NA (test code = 7741845395) 139 mmol/L 135-145 K (test code = 3412699332) 4.5 mmol/L 3.5-5.0 CL (test code = 7063481440) 103 mmol/L 98-108 CO2 TOTAL (test code = 9895524463) 32 mmol/L 23-31 H AGAP (test code = 1066532452) 2-16 BUN (test code = 6284853941) 25 mg/dL 7-23 H GLUCOSE (test code = 5148800152) 133 mg/dL 70-110 H CREATININE (test code = 0.53 mg/dL 0.50-1.04 4058265064) TOTAL BILI (test code = 0.7 mg/dL 0.1-1.6 2557213580) CALCIUM (test code = 2731471020) 8.8 mg/dL 8.6-10.6 T PROTEIN (test code = 9906238148) 6.0 g/dL 6.3-8.2 L ALBUMIN (test code = 4554070215) 3.0 g/dL 3.5-5.0 L ALK PHOS (test code = 1821863251) 91 U/L 34-122 ALTv (test code = 1742-6) 334 U/L 5-35 H AST(SGOT) (test code = 0459359798) 274 U/L 13-40 H eGFR (test code = 3158187236) mL/min/1.73m2 GYPSY (test code = GYPSY) Lab Interpretation (test code = Abnormal 85825-9) [facility] WITH [id number] 10:37:37 Test Item Value Reference Range Interpretation Comments WBC (test code = See_Comment [Automated 9490-2) message] The sy stem which generated this result transmitted reference range : 4.30 - 11.10 10*3/?L. The reference range was not used to interpret this result as normal/abnormal . RBC (test code = See_Comment [Automated 759-8) message] The sy stem which generated this result transmitted reference range : 3.93 - 5.25 10*6/?L. The reference range was not used to interpret this result as normal/abnormal . HGB (test code = 13.6 g/dL 11.6-15.0 718-7) HCT (test code = 41.3 % 35.7-45.2 4544-3) MCV (test code = 92.4 fL 80.6-95.5 787-2) MCH (test code = 30.4 pg 25.9-32.8 785-6) MCHC (test code = 32.9 g/dL 31.6-35.1 786-4) RDW-SD (test code = 42.3 fL 39.0-49.9 76102-7) RDW-CV (test code = 12.4 % 12.0-15.5 788-0) PLT (test code = See_Comment [Automated 777-3) message] The sy stem which generated this result transmitted reference range : 166 - 358 10*3/ ?L. The reference r leann was not used to interpret this result as normal/abnormal . MPV (test code = 10.2 fL 9.5-12.9 02388-7) NRBC/100 WBC (test See_Comment [Automat ed code = 2522652539) message] The system which generated this result transmitted reference range : 0.0 - 10.0 /100 WBCs. The refer ence range was not u sed to interpret th is result as normal/abnormal . NRBC x10^3 (test code <0.01 See_Comment [Auto mated = 1200368328) message] The s ystem which generated this result transmitted reference range : 10*3/?L. The reference range was not used to interpret this result as normal/abnormal . GRAN MAT (NEUT) % 72.7 % (test code = 770-8) IMM GRAN % (test code 1.90 % = 6429278902) LYMPH % (test code = 20.1 % 736-9) MONO % (test code = 5.2 % 5905-5) EOS % (test code = 0.0 % 713-8) BASO % (test code = 0.1 % 706-2) GRAN MAT x10^3(ANC) 5.86 10*3/uL 1.88-7.09 (test code = 0691395216) IMM GRAN x10^3 (test 0.15 10*3/uL 0.00-0.06 H code = 3898294712) LYMPH x10^3 (test code 1.62 10*3/uL 1.32-3.29 = 731-0) MONO x10^3 (test code 0.42 10*3/uL 0.33-0.92 = 742-7) EOS x10^3 (test code = <0.03 0.03-0.39 L 711-2) BASO x10^3 (test code <0.03 0.01-0.07 = 704-7) Lab Interpretation Abnormal (test code = 48478-2) [facility] WITH [id number] 10:37:37 Test Item Value Reference Range Interpretation Comments WBC (test code = See_Comment [Automated 6690-2) message] The sy stem which generated this result transmitted reference range : 4.30 - 11.10 10*3/?L. The reference range was not used to interpret this result as normal/abnormal . RBC (test code = See_Comment [Automated 789-8) message] The sy stem which generated this result transmitted reference range : 3.93 - 5.25 10*6/?L. The reference range was not used to interpret this result as normal/abnormal . HGB (test code = 13.6 g/dL 11.6-15.0 718-7) HCT (test code = 41.3 % 35.7-45.2 4544-3) MCV (test code = 92.4 fL 80.6-95.5 787-2) MCH (test code = 30.4 pg 25.9-32.8 785-6) MCHC (test code = 32.9 g/dL 31.6-35.1 786-4) RDW-SD (test code = 42.3 fL 39.0-49.9 56886-9) RDW-CV (test code = 12.4 % 12.0-15.5 788-0) PLT (test code = See_Comment [Automated 777-3) message] The sy stem which generated this result transmitted reference range : 166 - 358 10*3/ ?L. The reference r leann was not used to interpret this result as normal/abnormal . MPV (test code = 10.2 fL 9.5-12.9 81659-0) NRBC/100 WBC (test See_Comment [Automat ed code = 9728978708) message] The system which generated this result transmitted reference range : 0.0 - 10.0 /100 WBCs. The refer ence range was not u sed to interpret th is result as normal/abnormal . NRBC x10^3 (test code <0.01 See_Comment [Auto mated = 3856322881) message] The s ystem which generated this result transmitted reference range : 10*3/?L. The reference range was not used to interpret this result as normal/abnormal . GRAN MAT (NEUT) % 72.7 % (test code = 770-8) IMM GRAN % (test code 1.90 % = 6981466861) LYMPH % (test code = 20.1 % 736-9) MONO % (test code = 5.2 % 5905-5) EOS % (test code = 0.0 % 713-8) BASO % (test code = 0.1 % 706-2) GRAN MAT x10^3(ANC) 5.86 10*3/uL 1.88-7.09 (test code = 1835596509) IMM GRAN x10^3 (test 0.15 10*3/uL 0.00-0.06 H code = 1270652407) LYMPH x10^3 (test code 1.62 10*3/uL 1.32-3.29 = 731-0) MONO x10^3 (test code 0.42 10*3/uL 0.33-0.92 = 742-7) EOS x10^3 (test code = <0.03 0.03-0.39 L 711-2) BASO x10^3 (test code <0.03 0.01-0.07 = 704-7) Lab Interpretation Abnormal (test code = 59261-3) [facility], [id number] 17:11:20 Test Item Value Reference Range Interpretation Comments VIT D 25OH (test code = 26 ng/mL 25-80 52664-1) GYPSY (test code = GYPSY) Deficiency: <20 ng/mLInsufficiency : 20-24 ng/mLOptimal: 25-80 ng/mL Lab Interpretation (test Normal code = 59706-0) [facility], [id number] 17:11:20 Test Item Value Reference Range Interpretation Comments VIT D 25OH (test code = 48633-6) 26 ng/mL 25-80 GYPSY (test code = GYPSY) Lab Interpretation (test code = Normal 30552-2) [facility] [id number] 10:29:24 Test Item Value Reference Range Interpretation Comments NT-proBNP (test code 397 pg/mL See_Comment H [Autom ated = 8817532955) message] The system which generated this result transmitted reference range : <=125. The reference range was not used to interpret this result as normal/abnormal . GYPSY (test code = GYPSY) Biotin has been reported to cause a negative bias, interpret results relative to patient's use of biotin. Lab Interpretation Abnormal (test code = 53889-4) [facility] [id number] 10:29:24 Test Item Value Reference Range Interpretation Comments NT-proBNP (test code = 397 pg/mL See_Comment H [Aut omated message] 3893155928) The system [employer] generated this result transmit amanda reference range : <=125. The refe rence range was not u sed to interpret th is result as normal/abnormal . GYPSY (test code = GYPSY) Lab Interpretation (test Abnormal code = 88258-3) [facility]. METABOLIC PANEL ([id number])2020-11-09 10:23:04 Test Item Value Reference Range Interpretation Comments NA (test code = 140 mmol/L 135-145 0503385931) K (test code = 4.5 mmol/L 3.5-5.0 9168311159) CL (test code = 105 mmol/L 98-108 2309151426) CO2 TOTAL (test code = 33 mmol/L 23-31 H 1424409414) AGAP (test code = 2-16 8620483229) BUN (test code = 29 mg/dL 7-23 H 8794532645) GLUCOSE (test code = 122 mg/dL 70-110 H 1926548242) CREATININE (test code = 0.59 mg/dL 0.50-1.04 1535701745) TOTAL BILI (test code = 0.5 mg/dL 0.1-1.5 8656984731) CALCIUM (test code = 8.4 mg/dL 8.6-10.6 L 2485531189) T PROTEIN (test code = 6.1 g/dL 6.3-8.2 L 4688734022) ALBUMIN (test code = 3.2 g/dL 3.5-5.0 L 9131890238) ALK PHOS (test code = 80 U/L 34-122 8757051190) ALTv (test code = 89 U/L 5-35 H 1742-6) AST(SGOT) (test code = 105 U/L 13-40 H 7847346722) eGFR (test code = mL/min/1.73m2 3564921512) GYPSY (test code = GYPSY) Association of Glomerular Filtration Rate (GFR) and Staging of Kidney Disease* + --+ --+ ------+| GFR (mL/min/1.73 m2) ?| With Kidney Damage ?| ?Without Kidney Damage+ --------+ --------+ +| ?>90 ?| ?Stage one ?| ? Normal ?+ ---+ ---+ -------+| ?60-89 ?| ?Stage two ?| ? Decreased GFR ? + --+ --+ ------+| ?30-59 ?| ?Stage three ?| ? Stage three ? + --+ --+ ------+| ?15-29 ?| ?Stage four ? | ? Stage four ?+ ---+ ---+ -------+| ?<15 (or dialysis) ? ?| ?Stage five ? | ? Stage five ?+ ---+ ---+ -------+ *Each stage assumes the associated GFR level has been in effect for at least three months. ?Stages 1 to 5, with or without kidney disease, indicate chronic kidney disease. Notes: Determination of stages one and two (with eGFR >59mL/min/1.73 m2) requires estimation of kidney damage for at least three months as defined by structural or functional abnormalities of the kidney, manifested by either:Pathological abnormalities or Markers of kidney damage (including abnormalities in the composition of the blood or urine or abnormalities in imaging tests). Lab Interpretation Abnormal (test code = 74645-2) [facility]. METABOLIC PANEL ([id number])2020-11-09 10:23:04 Test Item Value Reference Range Interpretation Comments NA (test code = 2110760679) 140 mmol/L 135-145 K (test code = 0520584468) 4.5 mmol/L 3.5-5.0 CL (test code = 8106090916) 105 mmol/L 98-108 CO2 TOTAL (test code = 7654527529) 33 mmol/L 23-31 H AGAP (test code = 0595566339) 2-16 BUN (test code = 6202469333) 29 mg/dL 7-23 H GLUCOSE (test code = 5730518205) 122 mg/dL 70-110 H CREATININE (test code = 0.59 mg/dL 0.50-1.04 8795332975) TOTAL BILI (test code = 0.5 mg/dL 0.1-1.0 5482646365) CALCIUM (test code = 1865037017) 8.4 mg/dL 8.6-10.6 L T PROTEIN (test code = 1682230308) 6.1 g/dL 6.3-8.2 L ALBUMIN (test code = 5789029038) 3.2 g/dL 3.5-5.0 L ALK PHOS (test code = 5010413922) 80 U/L 34-122 ALTv (test code = 1742-6) 89 U/L 5-35 H AST(SGOT) (test code = 7520870849) 105 U/L 13-40 H eGFR (test code = 6318605088) mL/min/1.73m2 GYPSY (test code = GYPSY) Lab Interpretation (test code = Abnormal 05461-1) [facility] [id number] 11:17:00 Test Item Value Reference Range Interpretation Comments NT-proBNP (test code 416 pg/mL See_Comment H [Autom ated = 1104655453) message] The system which generated this result transmitted reference range : <=125. The reference range was not used to interpret this result as normal/abnormal . GYPSY (test code = GYPSY) Biotin has been reported to cause a negative bias, interpret results relative to patient's use of biotin. Lab Interpretation Abnormal (test code = 39565-8) [facility] [id number] 11:17:00 Test Item Value Reference Range Interpretation Comments NT-proBNP (test code = 416 pg/mL See_Comment H [Aut omated message] 8259939573) The system [employer] generated this result transmit amanda reference range : <=125. The refe rence range was not u sed to interpret th is result as normal/abnormal . GYPSY (test code = GYPSY) Lab Interpretation (test Abnormal code = 88142-2) [facility] ([id number])2020-11-08 11:12:19 Test Item Value Reference Range Interpretation Comments NA (test code = 139 mmol/L 135-145 3540609233) K (test code = 4.2 mmol/L 3.5-5.0 5218131992) CL (test code = 103 mmol/L 98-108 7566603988) CO2 TOTAL (test code = 29 mmol/L 23-31 9860755086) AGAP (test code = 2-16 1937402883) BUN (test code = 34 mg/dL 7-23 H 5584367275) GLUCOSE (test code = 133 mg/dL 70-110 H 6640162901) CREATININE (test code = 0.82 mg/dL 0.50-1.04 2912371257) TOTAL BILI (test code = 0.5 mg/dL 0.1-1.1 7078105139) CALCIUM (test code = 8.6 mg/dL 8.6-10.6 0477908839) T PROTEIN (test code = 6.6 g/dL 6.3-8.2 3358814037) ALBUMIN (test code = 3.5 g/dL 3.5-5.0 5145619253) ALK PHOS (test code = 89 U/L 34-122 6545492876) ALTv (test code = 71 U/L 5-35 H 1742-6) AST(SGOT) (test code = 81 U/L 13-40 H 8137766256) eGFR (test code = mL/min/1.73m2 2259684962) GYSPY (test code = GYPSY) Association of Glomerular Filtration Rate (GFR) and Staging of Kidney Disease* + --+ --+ ------+| GFR (mL/min/1.73 m2) ?| With Kidney Damage ?| ?Without Kidney Damage+ --------+ --------+ +| ?>90 ?| ?Stage one ?| ? Normal ?+ ---+ ---+ -------+| ?60-89 ?| ?Stage two ?| ? Decreased GFR ? + --+ --+ ------+| ?30-59 ?| ?Stage three ?| ? Stage three ? + --+ --+ ------+| ?15-29 ?| ?Stage four ? | ? Stage four ?+ ---+ ---+ -------+| ?<15 (or dialysis) ? ?| ?Stage five ? | ? Stage five ?+ ---+ ---+ -------+ *Each stage assumes the associated GFR level has been in effect for at least three months. ?Stages 1 to 5, with or without kidney disease, indicate chronic kidney disease. Notes: Determination of stages one and two (with eGFR >59mL/min/1.73 m2) requires estimation of kidney damage for at least three months as defined by structural or functional abnormalities of the kidney, manifested by either:Pathological abnormalities or Markers of kidney damage (including abnormalities in the composition of the blood or urine or abnormalities in imaging tests). Lab Interpretation Abnormal (test code = 07147-8) [facility]. METABOLIC PANEL ([id number])2020-11-08 11:12:19 Test Item Value Reference Range Interpretation Comments NA (test code = 6498893371) 139 mmol/L 135-145 K (test code = 1251120253) 4.2 mmol/L 3.5-5.0 CL (test code = 8830539436) 103 mmol/L 98-108 CO2 TOTAL (test code = 2035836362) 29 mmol/L 23-31 AGAP (test code = 7913034680) 2-16 BUN (test code = 1579086905) 34 mg/dL 7-23 H GLUCOSE (test code = 8720214079) 133 mg/dL 70-110 H CREATININE (test code = 0.82 mg/dL 0.50-1.04 9578216709) TOTAL BILI (test code = 0.5 mg/dL 0.1-1.3 3388749037) CALCIUM (test code = 4831013458) 8.6 mg/dL 8.6-10.6 T PROTEIN (test code = 8010622495) 6.6 g/dL 6.3-8.2 ALBUMIN (test code = 6121504837) 3.5 g/dL 3.5-5.0 ALK PHOS (test code = 6714040374) 89 U/L 34-122 ALTv (test code = 1742-6) 71 U/L 5-35 H AST(SGOT) (test code = 9879276302) 81 U/L 13-40 H eGFR (test code = 7560908785) mL/min/1.73m2 GYPSY (test code = GYPSY) Lab Interpretation (test code = Abnormal 58634-4) [facility] WITH [id number] 10:26:13 Test Item Value Reference Range Interpretation Comments WBC (test code = See_Comment [Automated 6690-2) message] The sy stem which generated this result transmitted reference range : 4.30 - 11.10 10*3/?L. The reference range was not used to interpret this result as normal/abnormal . RBC (test code = See_Comment [Automated 789-8) message] The sy stem which generated this result transmitted reference range : 3.93 - 5.25 10*6/?L. The reference range was not used to interpret this result as normal/abnormal . HGB (test code = 14.1 g/dL 11.6-15.0 718-7) HCT (test code = 42.4 % 35.7-45.2 4544-3) MCV (test code = 91.4 fL 80.6-95.5 787-2) MCH (test code = 30.4 pg 25.9-32.8 785-6) MCHC (test code = 33.3 g/dL 31.6-35.1 786-4) RDW-SD (test code = 42.5 fL 39.0-49.9 79594-5) RDW-CV (test code = 12.6 % 12.0-15.5 788-0) PLT (test code = See_Comment [Automated 777-3) message] The sy stem which generated this result transmitted reference range : 166 - 358 10*3/ ?L. The reference r leann was not used to interpret this result as normal/abnormal . MPV (test code = 10.2 fL 9.5-12.9 08070-5) NRBC/100 WBC (test See_Comment [Automat ed code = 3224083594) message] The system which generated this result transmitted reference range : 0.0 - 10.0 /100 WBCs. The refer ence range was not u sed to interpret th is result as normal/abnormal . NRBC x10^3 (test code <0.01 See_Comment [Auto mated = 2181050629) message] The s ystem which generated this result transmitted reference range : 10*3/?L. The reference range was not used to interpret this result as normal/abnormal . GRAN MAT (NEUT) % 81.6 % (test code = 770-8) IMM GRAN % (test code 0.90 % = 6569255621) LYMPH % (test code = 13.9 % 736-9) MONO % (test code = 3.5 % 5905-5) EOS % (test code = 0.0 % 713-8) BASO % (test code = 0.1 % 706-2) GRAN MAT x10^3(ANC) 7.49 10*3/uL 1.88-7.09 H (test code = 7087519611) IMM GRAN x10^3 (test 0.08 10*3/uL 0.00-0.06 H code = 1676076476) LYMPH x10^3 (test code 1.28 10*3/uL 1.32-3.29 L = 731-0) MONO x10^3 (test code 0.32 10*3/uL 0.33-0.92 L = 742-7) EOS x10^3 (test code = <0.03 0.03-0.39 L 711-2) BASO x10^3 (test code <0.03 0.01-0.07 = 704-7) Lab Interpretation Abnormal (test code = 78776-2) [facility] WITH [id number] 10:26:13 Test Item Value Reference Range Interpretation Comments WBC (test code = See_Comment [Automated 6590-2) message] The sy stem which generated this result transmitted reference range : 4.30 - 11.10 10*3/?L. The reference range was not used to interpret this result as normal/abnormal . RBC (test code = See_Comment [Automated 689-8) message] The sy stem which generated this result transmitted reference range : 3.93 - 5.25 10*6/?L. The reference range was not used to interpret this result as normal/abnormal . HGB (test code = 14.1 g/dL 11.6-15.0 718-7) HCT (test code = 42.4 % 35.7-45.2 4544-3) MCV (test code = 91.4 fL 80.6-95.5 787-2) MCH (test code = 30.4 pg 25.9-32.8 785-6) MCHC (test code = 33.3 g/dL 31.6-35.1 786-4) RDW-SD (test code = 42.5 fL 39.0-49.9 91571-1) RDW-CV (test code = 12.6 % 12.0-15.5 788-0) PLT (test code = See_Comment [Automated 777-3) message] The sy stem which generated this result transmitted reference range : 166 - 358 10*3/ ?L. The reference r leann was not used to interpret this result as normal/abnormal . MPV (test code = 10.2 fL 9.5-12.9 45411-0) NRBC/100 WBC (test See_Comment [Automat ed code = 7474406856) message] The system which generated this result transmitted reference range : 0.0 - 10.0 /100 WBCs. The refer ence range was not u sed to interpret th is result as normal/abnormal . NRBC x10^3 (test code <0.01 See_Comment [Auto mated = 0669024365) message] The s ystem which generated this result transmitted reference range : 10*3/?L. The reference range was not used to interpret this result as normal/abnormal . GRAN MAT (NEUT) % 81.6 % (test code = 770-8) IMM GRAN % (test code 0.90 % = 3205689775) LYMPH % (test code = 13.9 % 736-9) MONO % (test code = 3.5 % 5905-5) EOS % (test code = 0.0 % 713-8) BASO % (test code = 0.1 % 706-2) GRAN MAT x10^3(ANC) 7.49 10*3/uL 1.88-7.09 H (test code = [id number]) IMM GRAN x10^3 (test 0.08 10*3/uL 0.00-0.06 H code = [id number]) LYMPH x10^3 (test code 1.28 10*3/uL 1.32-3.29 L = 731-0) MONO x10^3 (test code 0.32 10*3/uL 0.33-0.92 L = 742-7) EOS x10^3 (test code = <0.03 0.03-0.39 L 711-2) BASO x10^3 (test code <0.03 0.01-0.07 = 704-7) Lab Interpretation Abnormal (test code = 85182-8) [facility] VENOUS BLOOD [id number] 10:18:08 Test Item Value Reference Range Interpretation Comments PH (test code = 7.32-7.42 [id number]) PCO2 CHICHI (test code = See_Comment [Auto mated message] The [id number]) system which ge nerated this result transmit amanda reference range : 41 - 51 mmHg. The refer ence range was not used to interpret this result as normal/abnormal . PO2 CHICHI (test code = See_Comment [Autom ated message] The 8073071994) system which ge nerated this result transmit amanda reference range : 25 - 40 mmHg. The refer ence range was not used to interpret this result as normal/abnormal . HCO3 CHICHI (test code = See_Comment [Auto mated message] The 2076758790) system which ge nerated this result transmit amanda reference range : 24 - 28 mEq/L. The refe rence range was not used to interpret this result as normal/abnormal . AC VBE(BEAKER) (test mEq/L code = 2538454092) [facility] VENOUS BLOOD [id number] 10:18:08 Test Item Value Reference Range Interpretation Comments PH (test code = 7.32-7.42 3534000906) PCO2 CHICHI (test code = See_Comment [Auto mated message] The 2941882753) system which ge nerated this result transmit amanda reference range : 41 - 51 mmHg. The refer ence range was not used to interpret this result as normal/abnormal . PO2 CHICHI (test code = See_Comment [Autom ated message] The 3967200957) system which ge nerated this result transmit amanda reference range : 25 - 40 mmHg. The refer ence range was not used to interpret this result as normal/abnormal . HCO3 CHICHI (test code = See_Comment [Auto mated message] The 8467322483) system which ge nerated this result transmit amanda reference range : 24 - 28 mEq/L. The refe rence range was not used to interpret this result as normal/abnormal . AC VBE(BEAKER) (test mEq/L code = 2693063592) [facility]-REACTIVE [id number] 18:55:34 Test Item Value Reference Range Interpretation Comments CRP (test code = 6048599985) 9.0 mg/dL <0.8 H Lab Interpretation (test code = Abnormal 37122-6) [facility]-REACTIVE [id number] 18:55:34 Test Item Value Reference Range Interpretation Comments CRP (test code = 3063022530) 9.0 mg/dL <0.8 H Lab Interpretation (test code = Abnormal 51815-3) [facility]IMULATING [id number] 17:19:38 Test Item Value Reference Range Interpretation Comments TSH (test code = See_Comment [Automated message] 9542786661) The system [employer] generated this result transmitted ref erence range: 0.45 - 4 .70 mIU/L. The refe rence range was not u sed to interpret this result as normal/abnor mal. Lab Interpretation (test Normal code = 17677-1) [facility] [id number] 17:19:38 Test Item Value Reference Range Interpretation Comments TSH (test code = See_Comment [Automated message] 8880568220) The system [employer] generated this result transmitted ref erence range: 0.45 - 4 .70 mIU/L. The refe rence range was not u sed to interpret this result as normal/abnor mal. Lab Interpretation (test Normal code = 28100-2) [facility] CenterTROPONIN [id number] 17:01:36 Test Item Value Reference Interpretation Comments Range TROPONIN I (test 0.002 ng/mL See_Comment [Automated code = 8039909796) message] The system which generated this result transmitted reference range : <=0.034. The reference range was not used to interpret this result as normal/abnormal . GYPSY (test code = Reference (Normal) GYPSY) Range (defined by the 99th percentile reference limit): <= 0.034 ng/mL Note: Cardiac troponin begins to rise 3-4 hours after the onset of ischemia. Repeat in 4-6 hours if the sample was drawn within 3-4 hours of the onset of the symptom and found normal. Diagnosis of myocardial injury is made with acute changes in cTn concentrations with at least one serial sample above the 99th percentile upper reference limit (URL), taken together with the patient's clinical presentation. Biotin has been reported to cause a negative bias, interpret results relative to patient's use of biotin. Lab Interpretation Normal (test code = 83479-7) [facility] CenterTROPONIN [id number] 17:01:36 Test Item Value Reference Range Interpretation Comments TROPONIN I (test code = 0.002 ng/mL See_Comment [Au tomated 2370691877) message] The sy stem which generated this result transmitted reference range : <=0.034. The reference range was not used to interpret this result as normal/abnormal . GYPSY (test code = GYPSY) Lab Interpretation Normal (test code = 92945-3) [facility] CenterCREATINE [id number] 16:57:57 Test Item Value Reference Range Interpretation Comments CK (test code = 0118328922) 58 U/L 33-194 Lab Interpretation (test code = Normal 93638-1) [facility] CenterURIC [id number] 16:57:57 Test Item Value Reference Range Interpretation Comments URIC ACID (test code = 2566155843) 6.2 mg/dL 2.9-6.0 H Lab Interpretation (test code = Abnormal 34314-0) [facility] CenterCOMP. METABOLIC PANEL (04308)2020-11-07 16:57:57 Test Item Value Reference Range Interpretation Comments NA (test code = 139 mmol/L 135-145 0151991369) K (test code = 4.0 mmol/L 3.5-5.0 8302811290) CL (test code = 100 mmol/L 98-108 2252399744) CO2 TOTAL (test code = 31 mmol/L 23-31 4973117942) AGAP (test code = 2-16 2900199001) BUN (test code = 22 mg/dL 7-23 0857054415) GLUCOSE (test code = 127 mg/dL 70-110 H 3760820514) CREATININE (test code = 0.71 mg/dL 0.50-1.04 7305787693) TOTAL BILI (test code = 0.5 mg/dL 0.1-1.2 3128285347) CALCIUM (test code = 9.0 mg/dL 8.6-10.6 7411003576) T PROTEIN (test code = 7.1 g/dL 6.3-8.2 2693803045) ALBUMIN (test code = 3.7 g/dL 3.5-5.0 4932282648) ALK PHOS (test code = 122 U/L 34-122 0464622942) ALTv (test code = 85 U/L 5-35 H 2-6) AST(SGOT) (test code = 86 U/L 13-40 H 4993728056) eGFR (test code = mL/min/1.73m2 7907030383) GYPSY (test code = GYPSY) Association of Glomerular Filtration Rate (GFR) and Staging of Kidney Disease* + --+ --+ ------+| GFR (mL/min/1.73 m2) ?| With Kidney Damage ?| ?Without Kidney Damage+ --------+ --------+ +| ?>90 ?| ?Stage one ?| ? Normal ?+ ---+ ---+ -------+| ?60-89 ?| ?Stage two ?| ? Decreased GFR ? + --+ --+ ------+| ?30-59 ?| ?Stage three ?| ? Stage three ? + --+ --+ ------+| ?15-29 ?| ?Stage four ? | ? Stage four ?+ ---+ ---+ -------+| ?<15 (or dialysis) ? ?| ?Stage five ? | ? Stage five ?+ ---+ ---+ -------+ *Each stage assumes the associated GFR level has been in effect for at least three months. ?Stages 1 to 5, with or without kidney disease, indicate chronic kidney disease. Notes: Determination of stages one and two (with eGFR >59mL/min/1.73 m2) requires estimation of kidney damage for at least three months as defined by structural or functional abnormalities of the kidney, manifested by either:Pathological abnormalities or Markers of kidney damage (including abnormalities in the composition of the blood or urine or abnormalities in imaging tests). Lab Interpretation Abnormal (test code = 54361-4) [facility] Test Item Value Reference Range Interpretation Comments MAGNESIUM (test code = 5144658027) 2.1 mg/dL 1.7-2.4 Lab Interpretation (test code = Normal 64904-7) [facility] CenterN-TERMINAL [id number] 16:57:57 Test Item Value Reference Range Interpretation Comments NT-proBNP (test code 334 pg/mL See_Comment H [Autom ated = 4586073489) message] The system which generated this result transmitted reference range : <=125. The reference range was not used to interpret this result as normal/abnormal . GYPSY (test code = GYPSY) Biotin has been reported to cause a negative bias, interpret results relative to patient's use of biotin. Lab Interpretation Abnormal (test code = 17222-2) [facility] CenterPHOSPHORUS2021-08-14 16:57:57 Test Item Value Reference Range Interpretation Comments PHOSPHORUS (test code = 7589121837) 4.0 mg/dL 2.5-5.0 Lab Interpretation (test code = Normal 29838-7) [facility] CenterCREATINE [id number] 16:57:57 Test Item Value Reference Range Interpretation Comments CK (test code = 7809661057) 58 U/L 33-194 Lab Interpretation (test code = Normal 08884-6) [facility] CenterURIC [id number] 16:57:57 Test Item Value Reference Range Interpretation Comments URIC ACID (test code = 8500896502) 6.2 mg/dL 2.9-6.0 H Lab Interpretation (test code = Abnormal 37553-8) [facility] CenterCOMP. METABOLIC PANEL (45430)2020-11-07 16:57:57 Test Item Value Reference Range Interpretation Comments NA (test code = 0077349148) 139 mmol/L 135-145 K (test code = 6760054900) 4.0 mmol/L 3.5-5.0 CL (test code = 0959938511) 100 mmol/L 98-108 CO2 TOTAL (test code = 3103168844) 31 mmol/L 23-31 AGAP (test code = 8033478843) 2-16 BUN (test code = 7771645369) 22 mg/dL 7-23 GLUCOSE (test code = 7623515237) 127 mg/dL 70-110 H CREATININE (test code = 0.71 mg/dL 0.50-1.04 7403384405) TOTAL BILI (test code = 0.5 mg/dL 0.1-1.0 2418106822) CALCIUM (test code = 0911045008) 9.0 mg/dL 8.6-10.6 T PROTEIN (test code = 4562830846) 7.1 g/dL 6.3-8.2 ALBUMIN (test code = 7078522710) 3.7 g/dL 3.5-5.0 ALK PHOS (test code = 9694231074) 122 U/L 34-122 ALTv (test code = 1742-6) 85 U/L 5-35 H AST(SGOT) (test code = 4618023541) 86 U/L 13-40 H eGFR (test code = 5272696088) mL/min/1.73m2 GYPSY (test code = GYPSY) Lab Interpretation (test code = Abnormal 32934-3) [facility] CenterMAGNESIUM2021-08-14 16:57:57 Test Item Value Reference Range Interpretation Comments MAGNESIUM (test code = 2592915351) 2.1 mg/dL 1.7-2.4 Lab Interpretation (test code = Normal 34768-0) [facility] CenterN-TERMINAL [id number] 16:57:57 Test Item Value Reference Range Interpretation Comments NT-proBNP (test code = 334 pg/mL See_Comment H [Aut omated message] 4765364317) The system [employer] generated this result transmit amanda reference range : <=125. The refe rence range was not u sed to interpret th is result as normal/abnormal . GYPSY (test code = GYPSY) Lab Interpretation (test Abnormal code = 68029-1) [facility] CenterPHOSPHORUS2021-08-14 16:57:57 Test Item Value Reference Range Interpretation Comments PHOSPHORUS (test code = 8274662093) 4.0 mg/dL 2.5-5.0 Lab Interpretation (test code = Normal 44917-1) [facility] CenterLIPID PANEL (89747)(TOTAL CHOLESTEROL, TRIGLYCERIDES, HDL)2020-11-07 16:47:56 Test Item Value Reference Range Interpretation Comments CHOL (test code = 109 mg/dL 120-200 L 2540488004) HDL (test code = 34 mg/dL >50 L 6626618230) HDLC RATIO (test code = See_Comment [Au tomated message] 4925679997) The system [employer] generated this result transmit amanda reference range : <=4.5. The refe rence range was not u sed to interpret th is result as normal/abnormal . TRIG (test code = 127 mg/dL 30-170 9548056857) LDL CHOL (test code = 50 mg/dL See_Comment [Auto mated message] 13170-9) The system [employer] generated this result transmit amanda reference range : <=160. The refe rence range was not u sed to interpret th is result as normal/abnormal . VLDL (test code = 25 mg/dL 5-60 6226227992) Lab Interpretation (test Abnormal code = 68681-5) [facility] CenterLIPID PANEL (34952)(TOTAL CHOLESTEROL, TRIGLYCERIDES, HDL)2020-11-07 16:47:56 Test Item Value Reference Range Interpretation Comments CHOL (test code = 109 mg/dL 120-200 L 3667156701) HDL (test code = 34 mg/dL >50 L 8716131683) HDLC RATIO (test code = See_Comment [Au tomated message] 1697750145) The system [employer] generated this result transmit amanda reference range : <=4.5. The refe rence range was not u sed to interpret th is result as normal/abnormal . TRIG (test code = 127 mg/dL 30-170 1452105578) LDL CHOL (test code = 50 mg/dL See_Comment [Auto mated message] 77794-9) The system [employer] generated this result transmit amanda reference range : <=160. The refe rence range was not u sed to interpret th is result as normal/abnormal . VLDL (test code = 25 mg/dL 5-60 0225834334) Lab Interpretation (test Abnormal code = 45637-6) [facility] CenterGlycosylated Hemoglobin (A1C)2020-11-07 16:22:39 Test Item Value Reference Range Interpretation Comments HGB A1C (test code = 5.7 % 4.0-5.7 4548-4) GYPSY (test code = GYPSY) Reference RangesNormal: <5.7%Prediabetes: 5.7 - 6.4%Diabetes: > 6.5% Lab Interpretation (test Normal code = 53744-4) [facility] CenterGlycosylated Hemoglobin (A1C)2020-11-07 16:22:39 Test Item Value Reference Range Interpretation Comments HGB A1C (test code = 4548-4) 5.7 % 4.0-5.7 GYPSY (test code = GYPSY) Lab Interpretation (test code = Normal 43257-6) [facility] CenterCB WITH [id number] 15:55:16 Test Item Value Reference Range Interpretation Comments WBC (test code = See_Comment [Automated 6690-2) message] The sy stem which generated this result transmitted reference range : 4.30 - 11.10 10*3/?L. The reference range was not used to interpret this result as normal/abnormal . RBC (test code = See_Comment [Automated 789-8) message] The sy stem which generated this result transmitted reference range : 3.93 - 5.25 10*6/?L. The reference range was not used to interpret this result as normal/abnormal . HGB (test code = 14.3 g/dL 11.6-15.0 718-7) HCT (test code = 43.2 % 35.7-45.2 4544-3) MCV (test code = 91.3 fL 80.6-95.5 787-2) MCH (test code = 30.2 pg 25.9-32.8 785-6) MCHC (test code = 33.1 g/dL 31.6-35.1 786-4) RDW-SD (test code = 42.6 fL 39.0-49.9 93991-5) RDW-CV (test code = 12.6 % 12.0-15.5 788-0) PLT (test code = See_Comment [Automated 777-3) message] The sy stem which generated this result transmitted reference range : 166 - 358 10*3/ ?L. The reference r leann was not used to interpret this result as normal/abnormal . MPV (test code = 10.2 fL 9.5-12.9 69468-1) NRBC/100 WBC (test See_Comment [Automat ed code = 1525359656) message] The system which generated this result transmitted reference range : 0.0 - 10.0 /100 WBCs. The refer ence range was not u sed to interpret th is result as normal/abnormal . NRBC x10^3 (test code <0.01 See_Comment [Auto mated = 8896859290) message] The s ystem which generated this result transmitted reference range : 10*3/?L. The reference range was not used to interpret this result as normal/abnormal . GRAN MAT (NEUT) % 85.5 % (test code = 770-8) IMM GRAN % (test code 0.50 % = 3174634748) LYMPH % (test code = 11.1 % 736-9) MONO % (test code = 2.8 % 5905-5) EOS % (test code = 0.0 % 713-8) BASO % (test code = 0.1 % 706-2) GRAN MAT x10^3(ANC) 7.92 10*3/uL 1.88-7.09 H (test code = 0020607651) IMM GRAN x10^3 (test 0.05 10*3/uL 0.00-0.06 code = 6877764744) LYMPH x10^3 (test code 1.03 10*3/uL 1.32-3.29 L = 731-0) MONO x10^3 (test code 0.26 10*3/uL 0.33-0.92 L = 742-7) EOS x10^3 (test code = <0.03 0.03-0.39 L 711-2) BASO x10^3 (test code <0.03 0.01-0.07 = 704-7) Lab Interpretation Abnormal (test code = 00461-9) [facility] WITH [id number] 15:55:16 Test Item Value Reference Range Interpretation Comments WBC (test code = See_Comment [Automated 1890-2) message] The sy stem which generated this result transmitted reference range : 4.30 - 11.10 10*3/?L. The reference range was not used to interpret this result as normal/abnormal . RBC (test code = See_Comment [Automated 169-8) message] The sy stem which generated this result transmitted reference range : 3.93 - 5.25 10*6/?L. The reference range was not used to interpret this result as normal/abnormal . HGB (test code = 14.3 g/dL 11.6-15.0 718-7) HCT (test code = 43.2 % 35.7-45.2 4544-3) MCV (test code = 91.3 fL 80.6-95.5 787-2) MCH (test code = 30.2 pg 25.9-32.8 785-6) MCHC (test code = 33.1 g/dL 31.6-35.1 786-4) RDW-SD (test code = 42.6 fL 39.0-49.9 61968-5) RDW-CV (test code = 12.6 % 12.0-15.5 788-0) PLT (test code = See_Comment [Automated 777-3) message] The sy stem which generated this result transmitted reference range : 166 - 358 10*3/ ?L. The reference r leann was not used to interpret this result as normal/abnormal . MPV (test code = 10.2 fL 9.5-12.9 46050-6) NRBC/100 WBC (test See_Comment [Automat ed code = 6850450976) message] The system which generated this result transmitted reference range : 0.0 - 10.0 /100 WBCs. The refer ence range was not u sed to interpret th is result as normal/abnormal . NRBC x10^3 (test code <0.01 See_Comment [Auto mated = 2678756773) message] The s ystem which generated this result transmitted reference range : 10*3/?L. The reference range was not used to interpret this result as normal/abnormal . GRAN MAT (NEUT) % 85.5 % (test code = 770-8) IMM GRAN % (test code 0.50 % = 6464216219) LYMPH % (test code = 11.1 % 736-9) MONO % (test code = 2.8 % 5905-5) EOS % (test code = 0.0 % 713-8) BASO % (test code = 0.1 % 706-2) GRAN MAT x10^3(ANC) 7.92 10*3/uL 1.88-7.09 H (test code = 3086954519) IMM GRAN x10^3 (test 0.05 10*3/uL 0.00-0.06 code = 0123728100) LYMPH x10^3 (test code 1.03 10*3/uL 1.32-3.29 L = 731-0) MONO x10^3 (test code 0.26 10*3/uL 0.33-0.92 L = 742-7) EOS x10^3 (test code = <0.03 0.03-0.39 L 711-2) BASO x10^3 (test code <0.03 0.01-0.07 = 704-7) Lab Interpretation Abnormal (test code = 61110-6) [facility] VENOUS BLOOD [id number] 15:52:56 Test Item Value Reference Range Interpretation Comments PH (test code = 7.32-7.42 5940067728) PCO2 CHICHI (test code = See_Comment H [Auto mated message] 0302347526) The system [employer] generated this result transmitted ref erence range: 41 - 51 mmHg. The reference r leann was not used to interpret this result as normal/abnor mal. PO2 CHICHI (test code = See_Comment [Autom ated message] 4978704519) The system [employer] generated this result transmitted ref erence range: 25 - 40 mmHg. The reference r leann was not used to interpret this result as normal/abnor mal. HCO3 CHICHI (test code = See_Comment [Auto mated message] 4767388914) The system [employer] generated this result transmitted ref erence range: 24 - 28 mEq/L. The reference r leann was not used to interpret this result as normal/abnor mal. AC VBE(BEAKER) (test mEq/L code = 5444441546) Lab Interpretation (test Abnormal code = 37434-5) [facility] VENOUS BLOOD [id number] 15:52:56 Test Item Value Reference Range Interpretation Comments PH (test code = 7.32-7.42 8278018729) PCO2 CHICHI (test code = See_Comment H [Auto mated message] 0006175883) The system [employer] generated this result transmitted ref erence range: 41 - 51 mmHg. The reference r leann was not used to interpret this result as normal/abnor mal. PO2 CHICHI (test code = See_Comment [Autom ated message] 0942838693) The system [employer] generated this result transmitted ref erence range: 25 - 40 mmHg. The reference r leann was not used to interpret this result as normal/abnor mal. HCO3 CHICHI (test code = See_Comment [Auto mated message] 4046209229) The system [employer] generated this result transmitted ref erence range: 24 - 28 mEq/L. The reference r leann was not used to interpret this result as normal/abnor mal. AC VBE(BEAKER) (test mEq/L code = 6343389201) Lab Interpretation (test Abnormal code = 21242-9) [facility] CenterVITAMIN B12, [id number] 11:01:44 Test Item Value Reference Range Interpretation Comments VIT B12 (test code = >1000 240-930 H 7934267195) GYPSY (test code = GYPSY) Biotin has been reported to cause a positive bias, interpret results relative to patient's use of biotin. Lab Interpretation (test Abnormal code = 60547-5) [facility] CenterVIT[facility]IN B12, [id number] 11:01:44 Test Item Value Reference Range Interpretation Comments VIT B12 (test code = 2497551620) >1000 240-930 H GYPSY (test code = GYPSY) Lab Interpretation (test code = Abnormal 79067-7) [facility] CenterPROCALCITONIN2021-08-14 03:41:00 Test Item Value Reference Range Interpretation Comments Procalcitonin (test 0.10 ng/mL <0.07 H code = 5424051153) GYPSY (test code = GYPSY) INTERPRETATION OF PROCALCITONIN RESULTS IN ADULTS >= 18 YEARS OF AGE Initiation and discontinuation of antibiotics on patients with suspected or confirmed Lower Respiratory Tract Infection in Adults >= 18 years of age. + +-------- --------+ + -----+|Procalcitonin |Interpretation ?|Antibiotic ? ? |Considerations ? |ng/mL ? | ?|recommendation | ? + +-------- --------+ + -----+| <0.1 ? | Bacterial ? ? ?| Strongly ? ? ?| ? | ?| infection very | discouraged ? | Overruling: ? | ?| unlikely ? ? ? | ? | ? Clinically unstable ? ? ? + +-------- --------+ + ? High risk for adverse ? ? | <0.25 ?| Bacterial ? ? ?| Discouraged ? | ? outcome ? | ?| infection ? ? ?| ? | ? SEE IMPORTANT NOTE ?| ?| unlikely ? ? ? | ? | ? + +-------- --------+ + -----+| >=0.25 ? ? ? | Bacterial ? ? ?| Encouraged ? ?| ? | ?| infection ? ? ?| ? | ? | ?| likely ? | ? | Consider treatment failure ?+ +------- ---------+ -+ if levels does not decrease | >0.5 ? | Bacterial ? ? ?| Strongly ? ? ?| appropriately ? | ?| infection very | encouraged ? ?| ? | ?| likely ? | ? | ? + +-------- --------+ + -----+ Discontinuation of antibiotics in high-acuity patients with suspected or confirmed sepsis in Adults >= 18 years of age. + +-------- --------+ + -----+|Procalcitonin |Interpretation ?|Antibiotic ? ? |Considerations ? |ng/mL ? | ?|recommendation | ? + +-------- --------+ + -----+| <0.25 ?| Bacterial ? ? ?| Strongly ? ? ?| ? | ?| infection very | discouraged ? | Overruling: ? | ?| unlikely ? ? ? | ? | ? Clinically unstable ? ? ? + +-------- --------+ + ? High risk for adverse ? ? | <0.5 or drop | Bacterial ? ? ?| Discouraged ? | ? outcome ? | >80% from ? ?| infection ? ? ?| ? | ? SEE IMPORTANT NOTE ?| highest PCT ?| unlikely ? ? ? | ? | ? | level ?| ?| ? | ? + +-------- --------+ + -----+| >=0.5 ?| Bacterial ? ? ?| Encouraged ? ?| ? | ?| infection ? ? ?| ? | ? | ?| likely ? | ? | Consider treatment failure ?+ +------- ---------+ -+ if levels does not decrease | >1.0 ? | Bacterial ? ? ?| Strongly ? ? ?| appropriately ? | ?| infection very | encouraged ? ?| ? | ?| likely ? | ? | ? + +-------- --------+ + -----+ Percentage of drop of Procalcitonin calculation for Discontinuation of antibiotics in high-acuity patients with suspected or confirmed sepsis in Adults >= 18 years of age. ? Procalcitonin highest{}-Procalcitonin current{}Delta Procalcitonin = x100% ? Procalcitonin current {} IMPORTANT NOTE: Procalcitonin may be elevated without bacterial infection by physiologic stress related to trauma, groves, chronic dialysis, metastatic cancer, surgery in the past seven days, malaria, some fungal infections, and some forms of vasculitis. The interpretation algorithm may not apply to patients with immunosuppression (equivalent of >10 mg of prednisone daily), HIV with CD4 cell count < 350 cells/mm3, active malignancy on systemic chemotherapy, solid organ transplant or hematopoietic stem cell transplantation, or hospital acquired pneumonia. Additionally, some clinical trials of procalcitonin have excluded patients with shock requiring vasopressor use, acute respiratory failure requiring mechanical ventilation, or those with known lung abscess/empyema. For further information please refer to:[email or web address] Lab Interpretation Abnormal (test code = 00867-0) [facility]PROCAL[facility]ONIN2021-08-14 03:41:00 Test Item Value Reference Range Interpretation Comments Procalcitonin (test code = 0.10 ng/mL <0.07 H 4071447285) GYPSY (test code = GYPSY) Lab Interpretation (test code = Abnormal 81360-1) [facility]31[facility]25 Test Item Value Reference Range Interpretation Comments APPEARANCE (test code = Clear Clear 1284261484) COLOR (test code = Yellow Yellow 7001698905) PH (test code = 4.8-8.0 3761055467) SP GRAVITY (test code = >1.050 1.003-1.035 H 8578291992) GLU U QUAL (test code = Normal Normal 3627285259) BLOOD (test code = Negative Negative 0339388709) KETONES (test code = 5 mg/dL Negative A 0950385537) PROTEIN (test code = 30 mg/dL Negative A 2887-8) UROBILIN (test code = Normal Normal 8486922582) BILIRUBIN (test code = Negative Negative 1996208347) NITRITE (test code = Negative Negative 9609448436) LEUK VANNESSA (test code = Negative Negative 8574341178) RBC/HPF (test code = See_Comment [Autom ated message] 4493526100) The system [employer] generated this result transmitted ref erence range: 0 - 3 HP F. The reference range was not used to int erpret this result as normal/abnormal . WBC/HPF (test code = See_Comment [Autom ated message] 5215074940) The system [employer] generated this result transmitted ref erence range: 0 - 5 HP F. The reference range was not used to int erpret this result as normal/abnormal . BACTERIA (test code = Negative Negative 2980582194) MUCOUS (test code = Slight Negative LPF A 3435861688) SQ EPITH (test code = HPF 1352628093) Lab Interpretation (test Abnormal code = 55861-9) [facility] 00:31:25 Test Item Value Reference Range Interpretation Comments APPEARANCE (test code = Clear Clear 8078531919) COLOR (test code = Yellow Yellow 8434725702) PH (test code = 4.8-8.0 2817961339) SP GRAVITY (test code = >1.050 1.003-1.035 H 0916222553) GLU U QUAL (test code = Normal Normal 2314995452) BLOOD (test code = Negative Negative 2173326730) KETONES (test code = 5 mg/dL Negative A 8895531647) PROTEIN (test code = 30 mg/dL Negative A 2887-8) UROBILIN (test code = Normal Normal 1142495493) BILIRUBIN (test code = Negative Negative 7155681799) NITRITE (test code = Negative Negative 0770379854) LEUK VANNESSA (test code = Negative Negative 4632106971) RBC/HPF (test code = See_Comment [Autom ated message] 9671726213) The system [employer] generated this result transmitted ref erence range: 0 - 3 HP F. The reference range was not used to int erpret this result as normal/abnormal . WBC/HPF (test code = See_Comment [Autom ated message] 4107224701) The system [employer] generated this result transmitted ref erence range: 0 - 5 HP F. The reference range was not used to int erpret this result as normal/abnormal . BACTERIA (test code = Negative Negative 5249340358) MUCOUS (test code = Slight Negative LPF A 8240392589) SQ EPITH (test code = HPF 3566780202) Lab Interpretation (test Abnormal code = 46133-4) [facility]MON[facility] [id number] 23:15:49 1. ?No pulmonary emboli. 2. ?Moderate burden of multifocal opacities associated with confirmedCOVID-19 pneumonia. 3. ?Pulmonary trunk dilatation can be seen with pulmonary hypertension. Preliminary Report Dictated by Resident: Bola Ramirez ?MD. Gabriela, have reviewed this study and agree with theove report.PROCEDURE: CT CHEST WITH CONTRAST- CHEST PE PROTOCOL CLINICAL INDICATION: 55 years-old Female; PE suspected, high pretest prob ."Arrived to ED from [facility] infusion clinic. RN reports they were getting VSand noted her SpO2 to be 78%. RA, they did not administered the regeneronthey just brought her to ED.?" Comparison: None TECHNIQUE: Volumetric helical CT angiogram was performed of the chest (lungapices to bases) with IV contrast. Images were reconstructed at 1.25 mmslice thickness. Corresponding axial, sagittal and coronal MIP images wereperformed. Axial MIPs and coronal and sagittal MPR images were generatedand reviewed. FINDINGS: Devices: None HEART AND GREAT VESSELS: The opacification of the pulmonary vasculature isappropriate. No filling defects are seen through the levelof the segmentalpulmonary arteries. ?The pulmonary trunk is elevated at 3.4 cm in diameter. The thoracic aorta is normal in caliber. 4 vessel arch anatomy isvisualized with the left vertebral artery originating from the arch. The heart is mildly enlarged. No pericardial abnormalities are identified.The RV to LV is slightly increased. Mild contrast refluxes into the hepaticIVC. MEDIASTINUM AND LOWER NECK: No central airway lesions are detected. Theesophagus is within normal limits. The included thyroid gland appearsnormal. LYMPH NODES: Prominent axillary, mediastinal, and hilar lymph nodes arelikelyreactive. LUNGS AND PLEURA: The lungs are moderately well expanded. Multifocalgroundglass opacities, more confluent in left upper lobe and bilaterallower lobes are seen throughout all lung rod. No pleural abnormality ispresent. VISUALIZED UPPER ABDOMEN: Unremarkable. OSSEOUS STRUCTURES AND SOFT TISSUES: No focal osseous lesions are detected.Spondylotic changes are manifested by disc osteophyte complexes. The softtissues appear normal. [facility], Radiant Results Inft User - 11/06/2020 6:16 PM CDT PROCEDURE: CT CHEST WITH CONTRAST- CHEST PE PROTOCOLCLINICAL INDICATION: 55 years-old Female; PE suspected, high pretest prob ."Arrived to ED from [facility] infusion clinic. RN reports they were getting VSand noted her SpO2 to be 78%. RA, they did not a dministered the regeneronthey just brought her to ED.?"Comparison: NoneTECHNIQUE: Volumetric helicalCT angiogram was performed of the chest (lungapices to bases) with IV contrast. Images were reconstructed at 1.25 mmslice thickness. Corresponding axial, sagittal and coronal MIP images wereperformed. Axial MIPs and coronal and sagittal MPR images were generatedand reviewed.FINDINGS:Devices: None HEART AND GREAT VESSELS: The opacification of the pulmonary vasculature isappropriate. No filling defectsare seen through the level of the segmentalpulmonary arteries. The pulmonary trunk is elevated at 3.4 cm in diameter.The thoracic aorta is normal in caliber. 4 vessel arch anatomy isvisualized with theleft vertebral artery originating from the arch.The heart is mildly enlarged. No pericardial abnormalities are identified.The RV to LV is slightly increased. Mild contrast refluxes into the hepaticIVC.MEDIASTINUM AND LOWER NECK: No central airway lesions are detected. Theesophagus is within normal limits. The included thyroid gland appearsnormal.LYMPH NODES: Prominent axillary, mediastinal, and hilarlymph nodes arelikely reactive. LUNGS AND PLEURA: The lungs are moderately well expanded. Multifocalgroundglass opacities, more confluent in left upper lobe and bilaterallower lobes are seen throughout all lung rod. No pleural abnormality ispresent.VISUALIZED UPPER ABDOMEN: Unremarkable. OSSEOUS STRUCTURES AND SOFT TISSUES: No focal osseous lesions are detected.Spondylotic changes are manifested by disc osteophyte complexes. The softtissues appear normal.IMPRESSION1. No pulmonary emboli.2. Moderate burden of multifocal opacities associated with confirmedCOVID-19 pneumonia.3. Pulmonary trunk dilatation can be seen with pulmonary hypertension.Preliminary Report Dictated by Resident: Bola Rodriguez MD., have reviewed this study and agree with theabove report.[facility] [id number] 23:15:49 1. ?No pulmonary emboli. 2. ?Moderate burden of multifocal opacities associated with confirmedCOVID-19 pneumonia. 3. ?Pulmonary trunk dilatation can be seen with pulmonary hypertension. Preliminary Report Dictated by Resident: Bola Ramirez MD., have reviewed this study and agree with theabove report.PROCEDURE: CT CHEST WITH CONTRAST- CHEST PE PROTOCOL CLINICAL INDICATION: 55 years-old Female; PE suspected, high pretest prob ."Arrived to ED from [facility] infusion clinic. RN reports they were getting VSand noted her SpO2 to be 78%. RA, they did not administered the regeneronthey just brought her to ED.?" Comparison: None TECHNIQUE: Volumetric helical CT angiogram was performed of the chest (lungapices to bases) with IV contrast. Images were reconstructed at 1.25 mmslice thickness. Corresponding axial, sagittal and coronal MIP images wereperformed. Axial MIPs and coronal and sagittal MPR images were generatedand reviewed. FINDINGS: Devices: None HEART AND GREAT VESSELS: The opacification of the pulmonary vasculature isappropriate. No filling defects are seen through the levelof the segmentalpulmonary arteries. ?The pulmonary trunk is elevated at 3.4 cm in diameter. The thoracic aorta is normal in caliber. 4 vessel arch anatomy isvisualized with the left vertebral artery originating from the arch. The heart is mildly enlarged. No pericardial abnormalities are identified.The RV to LV is slightly increased. Mild contrast refluxes into the hepaticIVC. MEDIASTINUM AND LOWER NECK: No central airway lesions are detected. Theesophagus is within normal limits. The included thyroid gland appearsnormal. LYMPH NODES: Prominent axillary, mediastinal, and hilar lymph nodes arelikelyreactive. LUNGS AND PLEURA: The lungs are moderately well expanded. Multifocalgroundglass opacities, more confluent in left upper lobe and bilaterallower lobes are seen throughout all lung rod. No pleural abnormality ispresent. VISUALIZED UPPER ABDOMEN: Unremarkable. OSSEOUS STRUCTURES AND SOFT TISSUES: No focal osseous lesions are detected.Spondylotic changes are manifested by disc osteophyte complexes. The softtissues appear normal. [facility], Radiant Results Inft User - 11/06/2020 6:16 PM CDT PROCEDURE: CT CHEST WITH CONTRAST- CHEST PE PROTOCOLCLINICAL INDICATION: 55 years-old Female; PE suspected, high pretest prob ."Arrived to ED from [facility] infusion clinic. RN reports they were getting VSand noted her SpO2 to be 78%. RA, they did not a dministered the regeneronthey just brought her to ED.?"Comparison: NoneTECHNIQUE: Volumetric helicalCT angiogram was performed of the chest (lungapices to bases) with IV contrast. Images were reconstructed at 1.25 mmslice thickness. Corresponding axial, sagittal and coronal MIP images wereperformed. Axial MIPs and coronal and sagittal MPR images were generatedand reviewed.FINDINGS:Devices: None HEART AND GREAT VESSELS: The opacification of the pulmonary vasculature isappropriate. No filling defectsare seen through the level of the segmentalpulmonary arteries. The pulmonary trunk is elevated at 3.4 cm in diameter.The thoracic aorta is normal in caliber. 4 vessel arch anatomy isvisualized with theleft vertebral artery originating from the arch.The heart is mildly enlarged. No pericardial abnormalities are identified.The RV to LV is slightly increased. Mild contrast refluxes into the hepaticIVC.MEDIASTINUM AND LOWER NECK: No central airway lesions are detected. Theesophagus is within normal limits. The included thyroid gland appearsnormal.LYMPH NODES: Prominent axillary, mediastinal, and hilarlymph nodes arelikely reactive. LUNGS AND PLEURA: The lungs are moderately well expanded. Multifocalgroundglass opacities, more confluent in left upper lobe and bilaterallower lobes are seen throughout all lung rod. No pleural abnormality ispresent.VISUALIZED UPPER ABDOMEN: Unremarkable. OSSEOUS STRUCTURES AND SOFT TISSUES: No focal osseous lesions are detected.Spondylotic changes are manifested by disc osteophyte complexes. The softtissues appear normal.IMPRESSION1. No pulmonary emboli.2. Moderate burden of multifocal opacities associated with confirmedCOVID-19 pneumonia.3. Pulmonary trunk dilatation can be seen with pulmonary hypertension.Preliminary Report Dictated by Resident: Tee Butler,Bola Ochoa MD., have reviewed this study and agree with theabove report.[facility] WITH [id number] 22:14:34 Test Item Value Reference Range Interpretation Comments WBC (test code = See_Comment [Automated 5408-2) message] The sy stem which generated this result transmitted reference range : 4.30 - 11.10 10*3/?L. The reference range was not used to interpret this result as normal/abnormal . RBC (test code = See_Comment [Automated 739-8) message] The sy stem which generated this result transmitted reference range : 3.93 - 5.25 10*6/?L. The reference range was not used to interpret this result as normal/abnormal . HGB (test code = 14.8 g/dL 11.6-15.0 718-7) HCT (test code = 44.5 % 35.7-45.2 4544-3) MCV (test code = 91.0 fL 80.6-95.5 787-2) MCH (test code = 30.3 pg 25.9-32.8 785-6) MCHC (test code = 33.3 g/dL 31.6-35.1 786-4) RDW-SD (test code = 43.2 fL 39.0-49.9 75143-5) RDW-CV (test code = 12.9 % 12.0-15.5 788-0) PLT (test code = See_Comment [Automated 357-3) message] The sy stem which generated this result transmitted reference range : 166 - 358 10*3/ ?L. The reference r leann was not used to interpret this result as normal/abnormal . MPV (test code = 10.1 fL 9.5-12.9 72101-9) NRBC/100 WBC (test See_Comment [Automat ed code = 5063392034) message] The system which generated this result transmitted reference range : 0.0 - 10.0 /100 WBCs. The refer ence range was not u sed to interpret th is result as normal/abnormal . NRBC x10^3 (test code <0.01 See_Comment [Auto mated = 6583653656) message] The s ystem which generated this result transmitted reference range : 10*3/?L. The reference range was not used to interpret this result as normal/abnormal . SEG % (test code = 60 % 33-76 77451-6) BAND % (test code = 4 % 0-1 H 56700-1) LYMPH % (test code = 30 % 14-54 41298-5) MONO % (test code = 6 % 0-4 H 23623-4) ANC (test code = 2.79 10*3/uL 1.88-7.09 753-4) Lab Interpretation Abnormal (test code = 04806-6) [facility] WITH [id number] 22:14:34 Test Item Value Reference Range Interpretation Comments WBC (test code = See_Comment [Automated 6690-2) message] The sy stem which generated this result transmitted reference range : 4.30 - 11.10 10*3/?L. The reference range was not used to interpret this result as normal/abnormal . RBC (test code = See_Comment [Automated 789-8) message] The sy stem which generated this result transmitted reference range : 3.93 - 5.25 10*6/?L. The reference range was not used to interpret this result as normal/abnormal . HGB (test code = 14.8 g/dL 11.6-15.0 718-7) HCT (test code = 44.5 % 35.7-45.2 4544-3) MCV (test code = 91.0 fL 80.6-95.5 787-2) MCH (test code = 30.3 pg 25.9-32.8 785-6) MCHC (test code = 33.3 g/dL 31.6-35.1 786-4) RDW-SD (test code = 43.2 fL 39.0-49.9 34717-4) RDW-CV (test code = 12.9 % 12.0-15.5 788-0) PLT (test code = See_Comment [Automated 777-3) message] The sy stem which generated this result transmitted reference range : 166 - 358 10*3/ ?L. The reference r leann was not used to interpret this result as normal/abnormal . MPV (test code = 10.1 fL 9.5-12.9 78497-7) NRBC/100 WBC (test See_Comment [Automat ed code = 5667778442) message] The system which generated this result transmitted reference range : 0.0 - 10.0 /100 WBCs. The refer ence range was not u sed to interpret th is result as normal/abnormal . NRBC x10^3 (test code <0.01 See_Comment [Auto mated = 0705762998) message] The s ystem which generated this result transmitted reference range : 10*3/?L. The reference range was not used to interpret this result as normal/abnormal . SEG % (test code = 60 % 33-76 37742-5) BAND % (test code = 4 % 0-1 H 63270-7) LYMPH % (test code = 30 % 14-54 28541-2) MONO % (test code = 6 % 0-4 H 82377-8) ANC (test code = 2.79 10*3/uL 1.88-7.09 753-4) Lab Interpretation Abnormal (test code = 49884-2) [facility] [id number] 22:05:27 Test Item Value Reference Interpretation Comments Range TROPONIN I (test 0.012 ng/mL See_Comment [Automated code = 1604797101) message] The system which generated this result transmitted reference range : <=0.034. The reference range was not used to interpret this result as normal/abnormal . GYPSY (test code = Reference (Normal) GYPSY) Range (defined by the 99th percentile reference limit): <= 0.034 ng/mL Note: Cardiac troponin begins to rise 3-4 hours after the onset of ischemia. Repeat in 4-6 hours if the sample was drawn within 3-4 hours of the onset of the symptom and found normal. Diagnosis of myocardial injury is made with acute changes in cTn concentrations with at least one serial sample above the 99th percentile upper reference limit (URL), taken together with the patient's clinical presentation. Biotin has been reported to cause a negative bias, interpret results relative to patient's use of biotin. Lab Interpretation Normal (test code = 47492-3) [facility] CenterTROP[facility] [id number] 22:05:27 Test Item Value Reference Range Interpretation Comments TROPONIN I (test code = 0.012 ng/mL See_Comment [Au tomated 2526544357) message] The sy stem which generated this result transmitted reference range : <=0.034. The reference range was not used to interpret this result as normal/abnormal . GYPSY (test code = GYPSY) Lab Interpretation Normal (test code = 18850-5) [facility]AL [id number] 22:02:04 Test Item Value Reference Range Interpretation Comments NT-proBNP (test code 295 pg/mL See_Comment H [Autom ated = 7078763703) message] The system which generated this result transmitted reference range : <=125. The reference range was not used to interpret this result as normal/abnormal . GYPSY (test code = GYPSY) Biotin has been reported to cause a negative bias, interpret results relative to patient's use of biotin. Lab Interpretation Abnormal (test code = 51527-4) [facility] [id number] 22:02:04 Test Item Value Reference Range Interpretation Comments NT-proBNP (test code = 295 pg/mL See_Comment H [Aut omated message] 0994534626) The system [employer] generated this result transmit amanda reference range : <=125. The refe rence range was not u sed to interpret th is result as normal/abnormal . GYPSY (test code = GYPSY) Lab Interpretation (test Abnormal code = 59762-2) [facility]. METABOLIC PANEL ([id number])2020-11-06 21:53:45 Test Item Value Reference Range Interpretation Comments NA (test code = 136 mmol/L 135-145 8163387736) K (test code = 3.8 mmol/L 3.5-5.0 8041246206) CL (test code = 98 mmol/L 98-108 3466671829) CO2 TOTAL (test code = 30 mmol/L 23-31 4717909667) AGAP (test code = 2-16 2867753440) BUN (test code = 12 mg/dL 7-23 0382905402) GLUCOSE (test code = 112 mg/dL 70-110 H 3816287380) CREATININE (test code = 0.66 mg/dL 0.50-1.04 2627888068) TOTAL BILI (test code = 0.5 mg/dL 0.1-1.6 2770308564) CALCIUM (test code = 8.8 mg/dL 8.6-10.6 2974961871) T PROTEIN (test code = 7.3 g/dL 6.3-8.2 3110686282) ALBUMIN (test code = 4.0 g/dL 3.5-5.0 3436430481) ALK PHOS (test code = 143 U/L 34-122 H 6995645129) ALTv (test code = 99 U/L 5-35 H 1742-6) AST(SGOT) (test code = 116 U/L 13-40 H 7061022664) eGFR (test code = mL/min/1.73m2 5963649124) GYPSY (test code = GYPSY) Association of Glomerular Filtration Rate (GFR) and Staging of Kidney Disease* + --+ --+ ------+| GFR (mL/min/1.73 m2) ?| With Kidney Damage ?| ?Without Kidney Damage+ --------+ --------+ +| ?>90 ?| ?Stage one ?| ? Normal ?+ ---+ ---+ -------+| ?60-89 ?| ?Stage two ?| ? Decreased GFR ? + --+ --+ ------+| ?30-59 ?| ?Stage three ?| ? Stage three ? + --+ --+ ------+| ?15-29 ?| ?Stage four ? | ? Stage four ?+ ---+ ---+ -------+| ?<15 (or dialysis) ? ?| ?Stage five ? | ? Stage five ?+ ---+ ---+ -------+ *Each stage assumes the associated GFR level has been in effect for at least three months. ?Stages 1 to 5, with or without kidney disease, indicate chronic kidney disease. Notes: Determination of stages one and two (with eGFR >59mL/min/1.73 m2) requires estimation of kidney damage for at least three months as defined by structural or functional abnormalities of the kidney, manifested by either:Pathological abnormalities or Markers of kidney damage (including abnormalities in the composition of the blood or urine or abnormalities in imaging tests). Lab Interpretation Abnormal (test code = 13177-7) [facility]. METABOLIC PANEL ([id number])2020-11-06 21:53:45 Test Item Value Reference Range Interpretation Comments NA (test code = 3774667081) 136 mmol/L 135-145 K (test code = 3276602927) 3.8 mmol/L 3.5-5.0 CL (test code = 1138437680) 98 mmol/L 98-108 CO2 TOTAL (test code = 0332300245) 30 mmol/L 23-31 AGAP (test code = 2133869589) 2-16 BUN (test code = 2336456271) 12 mg/dL 7-23 GLUCOSE (test code = 9956698675) 112 mg/dL 70-110 H CREATININE (test code = 0.66 mg/dL 0.50-1.04 1221320542) TOTAL BILI (test code = 0.5 mg/dL 0.1-1.5 2461972367) CALCIUM (test code = 1484452303) 8.8 mg/dL 8.6-10.6 T PROTEIN (test code = 1122531667) 7.3 g/dL 6.3-8.2 ALBUMIN (test code = 5798937654) 4.0 g/dL 3.5-5.0 ALK PHOS (test code = 6937204346) 143 U/L 34-122 H ALTv (test code = 1742-6) 99 U/L 5-35 H AST(SGOT) (test code = 7947828283) 116 U/L 13-40 H eGFR (test code = 8538051599) mL/min/1.73m2 GYPSY (test code = GYPSY) Lab Interpretation (test code = Abnormal 61887-7) [facility]-[id number] 21:47:17 Test Item Value Reference Interpretation Comments Range D-DIMER (test code = See_Comment H [Autom ated 1186786290) message] The system which generated this result transmitted reference range : <0.41 ?g/mL (FEU). The reference range was not used to interpret this result as normal/abnormal . GYPSY (test code = This test may be GYPSY) used in conjunction with a clinical pretest probability (PTP) assessment model to exclude venous thromboembolism (VTE) in patients suspected of deep venous thrombosis (DVT) and pulmonary embolism (PE) A D-Dimer value less than 0.50 ?g/ml (FEU) has a negative predicative value of 96 to 100% (95% CI)and 97 to 100% (95% CI) as an aid in the diagnosis of deep vein thrombosis (DVT) and pulmonary embolism when there is low or moderate pretest probability of PE or DVT. D-Dimer values are expressed in initial fibrinogen equivalent units (FEU)" The assay results should be used with other information, including the clinical context, in forming a diagnosis. Lab Interpretation Abnormal (test code = 60224-0) [facility]-[id number] 21:47:17 Test Item Value Reference Range Interpretation Comments D-DIMER (test code = See_Comment H [Autom ated message] 7652614578) The system [employer] generated this result transmitted ref erence range: <0.41 ?g /mL (FEU). The refe rence range was not u sed to interpret this result as normal/abnor mal. GYPSY (test code = GYPSY) Lab Interpretation (test Abnormal code = 62554-9) [facility]2019-12-23 11:14:00 RUN DATE: 03/18/19 [facility] - LAB PAGE 1 RUN TIME: 1114 Specimen Inquiry RUN USER: INTERFACE ---- --------PATIENT: MAURILIO GORDON LOC: YANIRA U #: [id number] AGE/SX: 53/F ROOM: [facility] RE03/13/19REG DR: Jessica Kumar : 65 BED: 1 DIS: 03/15/19 STATUS: DIS IN TLOC: SPEC #: [id number] RECD: 03/14/19 STATUS: WAYNE LOUIE #: [id number] FABI: 03/13/[address]: Jessica Kumar MDENTERED: 03/14/19 SP TYPE: SURG OTHR DR: ORDERED: SURG PATH LVL 5 HISTOLOGY: TISSUE ID BLK PCSCAS LEV PROCEDURE DISPOSITION ____ ___ ___ ___ CERVIX A 1 1 PROCEDURES: SURG PATH LVL 5 (03/14/19- 1509) TISSUES: A. CERVIX - CERVIX, UTERUS, BILATERAL FALLOPIAN TUBES BILATERAL OVARIES CLINICAL HISTORY EXCESSIVE/FREQ/IRREG MENSES-N92.1; LEIOMYOMA-D25.1 CPT CODES CPT CODE(S): 62001 , , , , , , FINAL DIAGNOSIS Uterus, bilateral fallopian tubes and ovaries, hysterectomy and bilateral salpingo-oophorectomy: ECTOCERVIX, NEGATIVE FOR VIRAL CYTOPATHIC EFFECT ENDOCERVIX [...] CONTINUED ON NEXT PAGE RUN DATE: 03/18/19 [facility] PAGE 2 RUN TIME: 1114 Specimen Inquiry RUN USER: INTERFACE SPEC #: [facility]:[id number] PATIENT: MAURILIO GORDON #[id number] (Continued) GROSS DESCRIPTION (Continued) amputated cervix has a chin exocervix and a pinpointos, 0.2 cm. The uterine corpus is markedly enlarged and distorted. The endometrial cavity measures 2.5 cm from cornu to cornu by 5.0 cm in length with a slightly hemorrhagic endometrium, 0.2 cm. The myometrium is maximally 5.0 cm in thickness and contains approximately 10-15 intramural and subserosal nodules, the largest measures 4.5 cm in greatest dimension. Except for a few nodules with focal areaswith slightly gritty cut-surfaces, the majority of the nodules have homogeneous dense chin fibrous cut surfaces with the whorled appearance and without hemorrhage or necrosis. The separate large nodule/fibroid is serially sectioned and the cut surface is dense, rubbery to firm, chin with the whorled appearance and without hemorrhage or necrosis. The longer segment of fallopian tube is slightly tortuousand has a patent lumen and is grossly unremarkable. The shorter segment of fallopian tube has a patent lumen and an adjacent paratubal cyst, 0.6 cm filled with translucent non-viscous fluid and is otherwise unremarkable. The larger detached ovary contains a few simple cysts, the largest measures 1.5 cm in greatest dimension, filled with translucent non-viscous fluid and a dense white-chin cyst, 1.2 cmin greatest dimension. The smaller detached ovary contains a few simple cysts, the largest measures 1.2 cm in greatest dimension, filled with translucent non-viscous fluid and a dense white-chin cyst, 1.0 cm in greatest dimension. ba/nr Section code: A1-A2 Cervix A3-A5 Anterior endometrium/myometrium A6-A7 Posterior endometrium/myometrium A8-A9 Intramural nodules with focal gritty areas A10-A17 Multiple intramural and subserosal nodules A18-A20 Separate large nodule/fibroid A21-A22 Longer fallopian tube and fimbria A23-A24 Matthews fallopian tube and fimbria A25-A26 Larger ovary A27-A28 Smaller ovaryGrossing performed at [facility], [address] [place] [address], [address], [place], [place] [address]. Solid Waste Disposal Manager: Lane Matson M.D. MICROSCOPIC DESCRIPTION Cervix, uterus, [...] CONTINUED ON NEXT PAGE RUN DATE: 03/18/19 [facility] PAGE 3 RUN TIME: 1114 Specimen Inquiry RUN USER: INTERFACE SPEC #: [facility]:[id number] PATIENT: MAURILIO GORDON #[id number] (Continued) MICROSCOPIC DESCRIPTION (Continued) lumina. A simple paratubal cyst is identified on one tube. Both ovaries demonstrate follicular cysts, one ovary demonstrates an ovarian leiomyoma. There is no evidence of malignancy. /cm-- Signed SIGNATURE ON FILE MosleyRuddy 03/18/19 1114 END OF REPORT GLUCOSE BEDSIDE TESTING 2019-03-15 17:10:00 Test Item Value Reference Range Interpretation Comments GLUCOSE BEDSIDE TESTING (test code 117 mg/dL 70-110 H = GLUBED) GLUCOSE BEDSIDE [id number] 07:15:00 Test Item Value Reference Range Interpretation Comments GLUCOSE BEDSIDE TESTING (test code 136 mg/dL 70-110 H = GLUBED) GLUCOSE BEDSIDE [id number] 00:32:00 Test Item Value Reference Range Interpretation Comments GLUCOSE BEDSIDE TESTING (test code 125 mg/dL 70-110 H = GLUBED) GLUCOSE BEDSIDE [id number] 16:30:00 Test Item Value Reference Range Interpretation Comments GLUCOSE BEDSIDE TESTING (test code 124 mg/dL 70-110 H = GLUBED) GLUCOSE BEDSIDE [id number] 11:29:00 Test Item Value Reference Range Interpretation Comments GLUCOSE BEDSIDE TESTING (test code 129 mg/dL 70-110 H = GLUBED) GLUCOSE BEDSIDE [id number] 07:25:00 Test Item Value Reference Range Interpretation Comments GLUCOSE BEDSIDE TESTING (test code 149 mg/dL 70-110 H = GLUBED) CBC W/AUTO [id number] 07:04:00 Test Item Value Reference Range Interpretation [...] = NO DIFF/SCN CRITERIA MDIFF) GLUCOSE BEDSIDE [id number] 02:41:00 Test Item Value Reference Range Interpretation Comments GLUCOSE BEDSIDE TESTING (test code 113 mg/dL 70-110 H = GLUBED) GLUCOSE BEDSIDE [id number] 20:36:00 Test Item Value Reference Range Interpretation Comments GLUCOSE BEDSIDE TESTING (test code 158 mg/dL 70-110 H = GLUBED) GLUCOSE BEDSIDE [id number] 15:38:00 Test Item Value Reference Range Interpretation Comments GLUCOSE BEDSIDE TESTING (test code 220 mg/dL 70-110 H = GLUBED) GLUCOSE BEDSIDE [id number] 06:42:00 Test Item Value Reference Range Interpretation Comments GLUCOSE BEDSIDE TESTING (test code 229 mg/dL 70-110 H = GLUBED) URINALYSIS [id number] 15:44:00 Test Item Value Reference Range Interpretation [...] (test code = 7.0 pH UNITS 5.0-7.0 AMNOJ) UA PROTEIN DIPSTICK (test NEGATIVE mg/dL NEG code = PROU) UA UROBILINIOGEN DIPSTICK 0.2 mg/dL <2.0 (test code = URO) UA NITRITE DIPSTICK (test NEGATIVE SCREEN NEG code = FAIZA) UA LEUKOCYTE ESTERASE TRACE Leuk/mcL NEGATIVE A DIPSTICK (test code = LEUU) Urine Specimen Type: Clean CatchUR HCG [id number] 15:44:00 Test Item Value Reference Range Interpretation Comments UR HCG QUAL (test code = HCGQLU) NEGATIVE NEGATIVE Urine Specimen Type: Clean CatchURINALYSIS [id number] 15:01:00 Test Item Value Reference Range Interpretation [...] LEUU) Urine Specimen Type: Clean CatchUR HCG [id number] 15:01:00 Test Item Value Reference Range Interpretation Comments UR HCG QUAL (test code = HCGQLU) NEGATIVE Urine Specimen Type: Clean CatchCBC W/AUTO [id number] 14:33:00 Test Item Value Reference Range Interpretation [...]
[2022-05-08 19:08] LABS: Urine Blood Negative (Negative); Urine Glucose Negative (Negative); Urine Protein Negative (Negative); Urine Specific Gravity >=1.030 (1.005-1.030); Urine pH 5.5 (5.0-7.0)
--- NOTE | 2022-05-08 19:49 | RAD REPORT ---
EXAM DESCRIPTION: CT - Stone Protocol - 05/08/2022 7:31 pm CLINICAL HISTORY: Flank pain. KIDNEY STONES COMPARISON: Abdomen W/Wo Contrast dated 02/22/2021 TECHNIQUE: Axial images were obtained without oral or IV contrast. Lack of contrast limits solid org an and vascular assessment. The [id number] spans the entirety of the system partially obscuring uppermost abdomen and lung bases. Coronal reformatted images were obtained and reviewed. All CT scans are performed using dose optimization technique as appropriate and may include automated exposure control or mA/KV adjustment according to patient size. FINDINGS: The lower lung rod are clear. Cholecystectomy clips Imaged portions of the liver and spleen show no suspicious findings on non-contrast imaging. The panc reas and adrenal glands are normal. No pathologic lymphadenopathy in the abdomen or pelvis. No urinary tract stones or obstructive uropathy. No bowel obstruction, free air, free fluid or abscess. Normal appendix noted. No significant bony abnormality. IMPRESSION: No urinary tract stones or obstructive uropathy.
[2022-05-08] MEDS ORDERED: FENTANYL CITR 100 MCG/2 ML ONE (20:00)
[2022-05-08] MEDS ORDERED: NA CHLORIDE 0.9% 1,000 ML ONE (20:00)
[2022-05-08 20:10] LABS: Urine Bacteria None Seen /HPF (<20); Urine Mucus Slight /HPF (None Seen); Urine RBC <5 /HPF (None Seen)
[2022-05-08] MEDS ORDERED: ACYCLOVIR 400 MG TABLET ONE (20:39)
[2022-05-08] MEDS ORDERED: LIDOCAINE 4% PATCH ONE (20:39)
[2022-05-08] MEDS ORDERED: predniSONE 20 MG TAB ONE (20:39)
[2022-05-08] MEDS ORDERED: FAMOTIDINE 20 MG TAB ONE (20:39)
[2022-05-08 20:43] LABS: Absolute Lymphocytes (CBC) 2.3 K/uL (0.7-4.9); Hematocrit 45.6 % (36.0-45.0); Lymphocytes % 28.7 % (15.3-44.8); MCV 91.7 fL (80-100); MPV 8.8 fL (7.6-11.3); RBC Red Blood Cell Count 4.98 M/uL (3.86-4.86)
[2022-05-08 20:54] LABS: Albumin 3.7 g/dL (3.4-5.0); Bilirubin Total 0.4 mg/dL (0.2-1.0); Potassium 4.4 mmol/L (3.5-5.1); Protein, Total 7.1 g/dL (6.4-8.2)
--- NOTE | 2022-05-08 21:38 | ER ---
Nurse's Notes [facility] Name: Mary Casas Age: 56 yrs Sex: Female : 1965 Arrival Date: 05/08/2022 Time: 18:01 Bed 15 Private MD: Diagnosis: Zoster without complications Presentation: 05/08 18:05 Chief complaint: Patient states: left flank pain started Monday, went to alt Monday ko1 and was prescribed tylenol 3, and muscle relaxers, she was given toradol. Nothing has helped. Coronavirus screen: At this time, the client does not indicate any symptoms associated with coronavirus-19. Ebola Screen: No symptoms or risks identified at this time. Initial Sepsis Screen: Does the patient meet any 2 criteria? No. Patient's initial sepsis screen is negative. Does the patient have a suspected source of infection? No. Patient's initial sepsis screen is negative. Risk Assessment: Do you want to hurt yourself or someone else? Patient reports no desire to harm self or others. Onset of symptoms was May 06, 2022 at 08:00. 18:05 Method Of Arrival: Ambulatory ko1 18:05 Acuity: ROSINA 3 ko1 Triage Assessment: 18:10 General: Appears distressed, uncomfortable, Behavior is calm, cooperative, appropriate ko1 for age. Pain: Complains of pain in mid back area and left mid back. Historical: - Allergies: 18:10 Percocet; ko1 18:10 Codeine; ko1 - Home Meds: 18:10 Cymbalta 30 mg oral cpDR 1 cap once daily [Active]; ko1 - Immunization history:: Adult Immunizations up to date. - Social history:: Smoking status: Patient denies any tobacco usage or history of. Screenin:30 [facility] Fall Risk Assessment (Adult) History of falling in the last 3 months, eh3 including since admission No falls in past 3 months (0 pts) Confusion or Disorientation No (0 pts) Intoxicated or Sedated No (0 pts) Impaired Gait No (0 pts) Mobility Assist Device Used No (0 pt) Altered Elimination No (0 pt) Score/Fall Risk Level 0 - 2 = Low Risk. Abuse screen: Denies threats or abuse. Denies injuries from another. Nutritional screening: No deficits noted. Tuberculosis screening: No symptoms or risk factors identified. Assessment: 18:30 General: Appears distressed, uncomfortable, Behavior is cooperative, appropriate for eh3 age, restless. Pain: Complains of pain in left flank Pain radiates to left upper quadrant and left lower quadrant Pain currently is 10 out of 10 on a pain scale. Quality of pain is described as sharp, Pain began 2-3 days ago. Neuro: Level of Consciousness is awake, alert, obeys commands, Oriented to person, place, time, situation. Cardiovascular: Capillary refill < 3 seconds Patient's skin is warm and dry. Respiratory: Airway is patent Respiratory effort is even, unlabored, Respiratory pattern is regular, symmetrical. GI: Abdomen is round non-distended. : No signs and/or symptoms were reported regarding the genitourinary system. EENT: No signs and/or symptoms were reported regarding the EENT system. Derm: No signs and/or symptoms reported regarding the dermatologic system. Skin is pink, warm \T\ dry. Musculoskeletal: No signs and/or symptoms reported regarding the musculoskeletal system. Circulation, motion, and sensation intact. Range of motion: intact in all extremities. 19:30 Reassessment: Patient appears in no apparent distress at this time. Patient and/or 3 family updated on plan of care and expected duration. Pain level reassessed. Patient is alert, oriented x 3, equal unlabored respirations, skin warm/dry/pink. 20:30 Reassessment: Patient appears in no apparent distress at this time. Patient and/or 3 family updated on plan of care and expected duration. Pain level reassessed. Patient is alert, oriented x 3, equal unlabored respirations, skin warm/dry/pink. 21:30 Reassessment: Patient appears in no apparent distress at this time. Patient and/or 3 family updated on plan of care and expected duration. Pain level reassessed. Patient is alert, oriented x 3, equal unlabored respirations, skin warm/dry/pink. Vital Signs: 18:05 BP 138 / 78; Pulse 78; Resp 20; Temp 97.4; Pulse Ox 100% ; Weight 97.52 kg; Height 5 ko1 ft. 4 in. (162.56 cm); Pain 7/10; 18:30 BP 115 / 46; Pulse 67; Resp 18; Pulse Ox 96% on R/A; eh3 19:30 BP 135 / 94; Pulse 71; Resp 18; Pulse Ox 100% on R/A; eh3 20:30 BP 147 / 79; Pulse 68; Resp 18; Pulse Ox 99% on R/A; eh3 21:30 BP 148 / 92; Pulse 68; Resp 18; Pulse Ox 100% on R/A; eh3 18:05 Body Mass Index 36.90 (97.52 kg, 162.56 cm) ko1 ED Course: 18:01 Patient arrived in ED. rg4 18:07 Latasha Venegas FNP-C is PHCP. snw 18:07 Don Munroe MD is Attending Physician. snw 18:10 Triage completed. ko1 18:10 Arm band placed on right wrist. ko1 18:11 Patient placed in waiting room, Patient notified of wait time. ko1 18:30 Patient has correct armband on for positive identification. Bed in low position. Call eh3 light in reach. Side rails up X2. Adult w/ patient. Pulse ox on. NIBP on. Door closed. Noise minimized. Lights dimmed. 18:41 Sunshine Flores, RN is Primary Nurse. eh3 20:59 Inserted saline lock: 22 gauge in left hand, using aseptic technique. vc1 20:59 Missed attempt(s): 22 gauge in left hand. ll3 21:55 No provider procedures requiring assistance completed. IV discontinued, intact, eh3 bleeding controlled, No redness/swelling at site. Pressure dressing applied. Administered Medications: 21:00 Drug: fentaNYL (PF) 50 mcg Route: IVP; Site: left hand; eh3 21:35 Follow up: Response: Pain is decreased eh3 21:00 Drug: NS 0.9% 1000 ml Route: IV; Rate: 1 bolus; Site: left hand; eh3 21:53 Follow up: IV Status: Completed infusion; IV Intake: 800ml eh3 21:00 Drug: Acyclovir 800 mg Route: PO; eh3 21:53 Follow up: Response: No adverse reaction eh3 21:00 Drug: predniSONE 40 mg Route: PO; eh3 21:54 Follow up: Response: No adverse reaction eh3 21:00 Drug: Pepcid (famotidine) 20 mg Route: PO; eh3 21:54 Follow up: Response: No adverse reaction eh3 21:00 Drug: Lidoderm Patch 5 % (700 mg/patch) 1 patches Route: Topical; Site: affected area; 3 21:54 Follow up: Response: Pain is decreased eh3 21:45 Drug: Valium (diazepam) 5 mg Route: IVP; Site: left hand; eh3 21:54 Follow up: Response: Medication administered at discharge. eh3 Medication: 21:55 VIS not applicable for this client. eh3 Intake: 21:53 IV: 800ml; Total: 800ml. eh3 Outcome: 21:37 Discharge ordered by . wendy 21:55 Discharged to home ambulatory, with family. eh3 21:55 Condition: stable 21:55 Discharge instructions given to patient, family, Instructed on discharge instructions, follow up and referral plans. medication usage, Demonstrated understanding of instructions, follow-up care, medications, Prescriptions given X 3. 21:56 Patient left the ED. eh3 Signatures: Latasha Venegas, HEAD COACH-C HEAD COACH-Csnw Batsheva Onofre rg4 Vernon Ortega RN RN 3 Sophia Dunn RN RN vc1 Sunshine Flores, RN RN eh3 Coco Romero, RN RN ko1
--- NOTE | 2022-05-08 21:38 | EDPHYS ---
Physician Documentation [facility] Name: Mary Casas Age: 56 yrs Sex: Female : 1965 Arrival Date: 05/08/2022 Time: 18:01 Bed 15 Private MD: JEMAL Physician Don Munroe HPI: 05/08 19:01 This 56 yrs old Female presents to ER via Ambulatory with complaints of Flank Pain. snw 19:01 The patient complains of pain in the right mid back around to under right breast. as snw noted. The patient has not experienced similar symptoms in the past. The patient has been recently seen at an urgent care, yesterday, for similar complaints, given toradol, motrin, and T3, no improvement. Historical: - Allergies: 18:10 Percocet; ko1 18:10 Codeine; ko1 - Home Meds: 18:10 Cymbalta 30 mg oral cpDR 1 cap once daily [Active]; ko1 - Immunization history:: Adult Immunizations up to date. - Social history:: Smoking status: Patient denies any tobacco usage or history of. ROS: 19:13 Constitutional: Negative for fever, chills, and weight loss, Eyes: Negative for injury, snw pain, redness, and discharge, ENT: Negative for injury, pain, and discharge, Neck: Negative for injury, pain, and swelling, Cardiovascular: Negative for chest pain, palpitations, and edema, Respiratory: Negative for shortness of breath, cough, wheezing, and pleuritic chest pain, Abdomen/GI: Negative for abdominal pain, nausea, vomiting, diarrhea, and constipation, : Negative for injury, bleeding, discharge, and swelling, MS/Extremity: Negative for injury and deformity, Skin: Negative for injury, rash, and discoloration, Neuro: Negative for headache, weakness, numbness, tingling, and seizure, Psych: Negative for depression, anxiety, suicide ideation, homicidal ideation, and hallucinations. 19:13 Back: Positive for pain at rest, pain with movement, radiated pain. Exam: 19:00 Constitutional: This is a well developed, well nourished patient who is awake, alert, snw and in no acute distress. Head/Face: Normocephalic, atraumatic. Eyes: Pupils equal round and reactive to light, extra-ocular motions intact. Lids and lashes normal. Conjunctiva and sclera are non-icteric and not injected. Cornea within normal limits. Periorbital areas with no swelling, redness, or edema. ENT: Nares patent. No nasal discharge, no septal abnormalities noted. Tympanic membranes are normal and external auditory canals are clear. Oropharynx with no redness, swelling, or masses, exudates, or evidence of obstruction, uvula midline. Mucous membranes moist. Neck: Trachea midline, no thyromegaly or masses palpated, and no cervical lymphadenopathy. Supple, full range of motion without nuchal rigidity, or vertebral point tenderness. No Meningismus. Chest/axilla: Normal chest wall appearance and motion. Nontender with no deformity. No lesions are appreciated. Cardiovascular: Regular rate and rhythm with a normal S1 and S2. No gallops, murmurs, or rubs. Normal PMI, no JVD. No pulse deficits. Respiratory: Lungs have equal breath sounds bilaterally, clear to auscultation and percussion. No rales, rhonchi or wheezes noted. No increased work of breathing, no retractions or nasal flaring. Abdomen/GI: Soft, non-tender, with normal bowel sounds. No distension or tympany. No guarding or rebound. No evidence of tenderness throughout. Skin: Warm, dry with normal turgor. Normal color with no rashes, no lesions, and no evidence of cellulitis. MS/ Extremity: Pulses equal, no cyanosis. Neurovascular intact. Full, normal range of motion. Neuro: Awake and alert, GCS 15, oriented to person, place, time, and situation. Cranial nerves II-XII grossly intact. Motor strength 5/5 in all extremities. Sensory grossly intact. Cerebellar exam normal. Normal gait. Psych: Awake, alert, with orientation to person, place and time. Behavior, mood, and affect are within normal limits. 19:00 Back: pain, that is moderate, of the right mid back wrapping around to under right breast. 19:00 Skin: no lesions. Vital Signs: 18:05 BP 138 / 78; Pulse 78; Resp 20; Temp 97.4; Pulse Ox 100% ; Weight 97.52 kg; Height 5 ko1 ft. 4 in. (162.56 cm); Pain 7/10; 18:30 BP 115 / 46; Pulse 67; Resp 18; Pulse Ox 96% on R/A; eh3 19:30 BP 135 / 94; Pulse 71; Resp 18; Pulse Ox 100% on R/A; eh3 20:30 BP 147 / 79; Pulse 68; Resp 18; Pulse Ox 99% on R/A; eh3 21:30 BP 148 / 92; Pulse 68; Resp 18; Pulse Ox 100% on R/A; eh3 18:05 Body Mass Index 36.90 (97.52 kg, 162.56 cm) ko1 MDM: 18:20 Patient medically screened. joss 21:35 Differential diagnosis: nephrolithiasis, UTI, pancreatitis, shingles. Data reviewed: snw vital signs, nurses notes, lab test result(s), radiologic studies. Counseling: I had a detailed discussion with the patient and/or guardian regarding: the historical points, exam findings, and any diagnostic results supporting the discharge/admit diagnosis, the presence of at least one elevated blood pressure reading (>120/80) during this emergency department visit, lab results, radiology results, the need for outpatient follow up, for definitive care, to return to the emergency department if symptoms worsen or persist or if there are any questions or concerns that arise at home. Special discussion: Based on the history and exam findings, there is no indication for further emergent testing or inpatient evaluation. I discussed with the patient/guardian the need to see the primary care provider for further evaluation of the symptoms. 05/08 18:07 Order name: Urine Microscopic Only [facility] 05/08 19:08 Order name: Urine Dipstick-Ancillary; Complete Time: 19:14 [facility] 05/08 19:45 Order name: CBC with Diff [facility] 05/08 19:45 Order name: CMP [facility] 05/08 20:11 Order name: Urine Microscopic Only; Complete Time: 20:14 [facility] 05/08 20:44 Order name: CBC with Automated Diff; Complete Time: 21:00 [facility] 05/08 18:25 Order name: CT Stone Protocol [facility] 05/08 19:49 Order name: CT; Complete Time: 19:50 [facility] 05/08 20:55 Order name: Comprehensive Metabolic Panel; Complete Time: 21:00 [facility] 05/08 18:07 Order name: Urine Dipstick-Ancillary (obtain specimen); Complete Time: 19:08 snw Administered Medications: 21:00 Drug: fentaNYL (PF) 50 mcg Route: IVP; Site: left hand; eh3 21:35 Follow up: Response: Pain is decreased eh3 21:00 Drug: NS 0.9% 1000 ml Route: IV; Rate: 1 bolus; Site: left hand; eh3 21:53 Follow up: IV Status: Completed infusion; IV Intake: 800ml eh3 21:00 Drug: Acyclovir 800 mg Route: PO; eh3 21:53 Follow up: Response: No adverse reaction eh3 21:00 Drug: predniSONE 40 mg Route: PO; eh3 21:54 Follow up: Response: No adverse reaction eh3 21:00 Drug: Pepcid (famotidine) 20 mg Route: PO; eh3 21:54 Follow up: Response: No adverse reaction eh3 21:00 Drug: Lidoderm Patch 5 % (700 mg/patch) 1 patches Route: Topical; Site: affected area; eh3 21:54 Follow up: Response: Pain is decreased 3 21:45 Drug: Valium (diazepam) 5 mg Route: IVP; Site: left hand; 3 21:54 Follow up: Response: Medication administered at discharge. 3 Disposition Summary: 05/08/22 21:37 Discharge Ordered Location: Home snw Condition: Stable snw Diagnosis - Zoster without complications snw Followup: snw - With: Emergency Department - When: As needed - Reason: Worsening of condition Followup: snw - With: Private Physician - When: 2 - 3 days - Reason: Recheck today's complaints, Continuance of care, Re-evaluation by your physician Discharge Instructions: - Discharge Summary Sheet snw - Neuropathic Pain snw - Shingles snw Forms: - Medication Reconciliation Form snw - Thank You Letter snw - Antibiotic Education snw - Prescription Opioid Use snw Prescriptions: - valacyclovir 1 gram Oral tablet - take 1 tablet by ORAL route 3 times per day; 21 tablet; Refills: 0, Product snw Selection Permitted - Prednisone 20 mg Oral Tablet - take 2 tablets by ORAL route once daily for 5 days; 10 tablet; Refills: 0, snw Product Selection Permitted - Pepcid 20 mg Oral Tablet - take 1 tablet by ORAL route once daily; 20 tablet; Refills: 0, Product snw Selection Permitted Signatures: Dispatcher [employer] Don David MD MD cha Waters, Shelly, GARDEN WORKER-C GARDEN WORKER-Csnw Sunshine Flores, RN RN eh3 Coco Romero, RN RN ko1
[2022-05-08] MEDS ORDERED: DIAZEPAM 10 MG/2 ML INJ SYRINGE ONE (21:46)
[2022-05-08 23:15] VITALS: TEMP 97.4
[2022-05-08 23:19] VITALS: BP 148/92; O2SAT 100
== END 2022-05-08 21:56 | disposition home or self-care (01) ==
LOC: ER 17:57
DX: B02.9 Zoster without complications (principal); R10.9 Unspecified abdominal pain
CPT/HCPCS: 96361; 85025; 36415; 80053; 76377; 74176; 96375; 96374; 99284; J7512; J3360; J3010; J2001; J7030; 81003; 81015

== ENCOUNTER 2022-05-10 13:41 | Emergency (ER) | payer BC ==
--- OUTSIDE RECORDS SUMMARY | 2022-05-10 13:49 | XMS REPORT | Continuity of Care Document ---
:1965 Author Organization [facility] t Address [address] [place] [address] Care Team Providers Name Role Phone Jb Bermudez MD Primary Care Physician VIVIEN ZARAGOZA Attending Clinician [...] Date Expiration Date S ource [place] [id number] 2020 00:00:00 BCBS 2 [id number] 2022 00:00:00 [place] [id number] 2021 00:00:00 [place] AETNA - [place] [id number] 2001 00:00:00 (POS II) Problems Condition Condition [...] Comments Source Exposure to Yes University SARS-CoV-2 [place] [facility] (event) Branch Tobacco use and 2020-11-06 2020-11-06 Never used Universit y of exposure 00:00:00 00:00:00 [facility] Alcohol intake 2020-11-06 2020-11-06 Ex-drinker University 00:00:00 00:00:00 (finding) [facility] Sex Ass[birth year] At [birth year] Universit y of 00:00:00 00:00:00 [place] MD Dominguez [facility] Smoking Status Start Date Stop Date Source Never smoker [facility] Medications Ordered Filled Start Stop Current Ordering Indication Dosage Frequency Signature Comments Components Source Medication Medication Date Date Medication? Clinician (SIG) Name Name zinc Yes [id number] 220mg Take 1 Unive rs sulfate 50 8-25 capsule by ity of mg zinc 00:00: mouth [place] (220 mg) 00 daily. Medical capsule Branch thiamine Yes [id number] 100mg Take 1 U nivers 100 mg 8-25 tablet by ity of tablet 00:00: mouth [place] 00 daily. Medical Branch zinc Yes [id number] 220mg Take 1 Unive rs sulfate 50 8-25 capsule by ity of mg zinc 00:00: mouth [place] (220 mg) 00 daily. Medical capsule Branch thiamine Yes [id number] 100mg Take 1 U nivers 100 mg 8-25 tablet by ity of tablet 00:00: mouth [place] 00 daily. Medical Branch zinc Yes [id number] 220mg Take 1 Unive rs sulfate 50 8-25 capsule by ity of mg zinc 00:00: mouth [place] (220 mg) 00 daily. Medical capsule Branch thiamine Yes [id number] 100mg Take 1 U nivers 100 mg 8-25 tablet by ity of tablet 00:00: mouth [place] 00 daily. Medical Branch zinc Yes [id number] 220mg Take 1 Unive rs sulfate 50 8-25 capsule by ity of mg zinc 00:00: mouth [place] (220 mg) 00 daily. Medical capsule Branch thiamine Yes [id number] 100mg Take 1 U nivers 100 mg 8-25 tablet by ity of tablet 00:00: mouth [place] 00 daily. Medical Branch DULoxetine 0 Yes 90mg Take 90 mg U nivers 30 mg 8-24 by mouth ity of capsule 21:55: daily. [address] DULoxetine 0 Yes 90mg Take 90 mg U nivers 30 mg 8-24 by mouth ity of capsule 21:55: daily. [address] DULoxetine 0 Yes 90mg Take 90 mg U nivers 30 mg 8-24 by mouth ity of capsule 21:55: daily. [address] DULoxetine Yes 90mg Take 90 mg U nivers 30 mg 8-24 by mouth ity of capsule 21:55: daily. [address] baricitinib Yes 4mg 4 mg, Unive [...] 0900, Until Discontinu ed, Routine albuterol Yes [id number] 2{puff} Inhale 2 Univers 90 8-24 Puffs ity of mcg/actuati 00:00: every 4 [place] as on inhaler 00 (four) Medical hours as Branch needed for Wheezing or Shortness of Breath. vitamin C Yes [id number] 1000mg Take 1 Univers with lucie 8-24 tablet by ity o f hips 1,000 00:00: mouth [place] mg tablet 00 daily. Medical Branch cholecalcif 0 Yes [id number] 2000U Take 2 Univers ravindra, 8-24 tablets by ity of vitamin D3, 00:00: mouth [place] 25 mcg 00 daily. Medical (1,000 Branch unit) tablet albuterol Yes [id number] 2{puff} Inhale 2 Univers 90 8-24 Puffs ity of mcg/actuati 00:00: every 4 [place] on inhaler 00 (four) Medical hours as Branch needed for Wheezing or Shortness of Breath. vitamin C 0 Yes [id number] 1000mg Take 1 Univers with lucie 8-24 tablet by ity o f hips 1,000 00:00: mouth [place] mg tablet 00 daily. Medical Branch cholecalcif 0 Yes [id number] 2000U Take 2 Univers ravindra, 8-24 tablets by ity of vitamin D3, 00:00: mouth [place] 25 mcg 00 daily. Medical (1,000 Branch unit) tablet albuterol 2020-0 Yes [id number] 2{puff} Inhale 2 Univers 90 8-24 Puffs ity of mcg/actuati 00:00: every 4 [place] on inhaler 00 (four) Medical hours as Branch needed for Wheezing or Shortness of Breath. vitamin C 0 Yes [id number] 1000mg Take 1 Univers with lucie 8-24 tablet by ity o f hips 1,000 00:00: mouth [place] mg tablet 00 daily. Medical Branch cholecalcif 0 Yes [id number] 2000U Take 2 Univers ravindra, 8-24 tablets by ity of vitamin D3, 00:00: mouth [place] 25 mcg 00 daily. Medical (1,000 Branch unit) tablet albuterol 2020-0 Yes [id number] 2{puff} Inhale 2 Univers 90 8-24 Puffs ity of mcg/actuati 00:00: every 4 [place] on inhaler 00 (four) Medical hours as Branch needed for Wheezing or Shortness of Breath. vitamin C 0 Yes [id number] 1000mg Take 1 Univers with lucie 8-24 tablet by ity o f hips 1,000 00:00: mouth [place] mg tablet 00 daily. Medical Branch cholecalcif 0 Yes [id number] 2000U Take 2 Univers ravindra, 8-24 tablets [...] tablet 500 00 Starting Medic al mg [facility] 11/14/20 at 1201, Until Discontinu ed, Routine, Indigestio n famotidine Yes 20mg 20 mg, Unive rs (PEPCID AC) 11-14 Oral, BID, it y of tablet 20 17:00: First dose [place] mg 00 on [facility] 11/14/20 at Branch 1200, Until Discontinu ed, Routine famotidine Yes 20mg 20 mg, Unive rs (PEPCID AC) 11-14 Oral, BID, it y of tablet 20 17:00: First [place] mg 00 on [facility] 11/14/20 at Branch 1200, Until Discontinu ed, Routine sodium 2020-0 Yes 1{spray 1 [place], Univ ers chloride 8- } Nasal, ity of (OCEAN MIST 22:53: PRN, [place] NASAL) 0.65 04 Starting Medi [place] % nasal [place] Branch spray 11/12/20 at [place] 1753, Until Discontinu ed, Routine, for dry nasal passages sodium 2020-0 Yes 1{spray 1 [place], Univ ers chloride 8-19 } Nasal, ity of (OCEAN MIST 22:53: PRN, [place] NASAL) 0.65 04 Starting Medi [place]ott % nasal [place] Branch spray 1 11/12/20 at [place] 1753, Until Discontinu ed, Routine, for dry nasal passages predniSONE 2020-0 202- No 60mg 60 mg, Univ ers (DELTASONE) 11-09 Oral, ity of tablet 60 21:45: 22:19 ONCE, 1 [place] mg 00 :00 dose, [facility] 11/09/20 at Branch 1645, Routine predniSONE 2020-0 2020- No 60mg 60 mg, Univ ers (DELTASONE) 11-09 Oral, ity of tablet 60 21:45: 22:19 ONCE, 1 [place] mg 00 :00 dose, [facility] 11/09/20 at Branch 1645, Routine guaiFENesin 2021-0 Yes 200mg 200 mg, Un raghav 100 mg/5 mL 8-16 Oral, Q4H, it y of solution 21:00: First dose [place] 200 mg 00 on [facility] 11/09/20 at Branch 1600, Until Discontinu ed, Routine guaiFENesin Yes 200mg 200 mg, Un raghav 100 mg/5 mL 8-16 Oral, Q4H, it y of solution 21:00: First dose [place] 200 mg 00 on [facility] 11/09/20 at Branch 1600, Until Discontinu ed, Routine baricitinib 2020- No 4mg 4 mg, Univ ers (OLUMIANT) 11-08 Oral, ity of tablet 4 mg 20:45: 14:22 DAILY, [place] 00 :26 First dose Medical (after [place] last modificati on) on [place] 11/08/20 at 1545, Until Discontinu ed, Routine baricitinib 2020- No 4mg 4 mg, Univ ers (OLUMIANT) 11-08 Oral, ity of tablet 4 mg 20:45: 14:22 DAILY, [place] as 00 :26 First dose Medical (after [place] last modificati on) on [place] 11/08/20 at 1545, Until Discontinu ed, Routine NaCl 0.9% 2020- No 500mL at 999 Univ ers (NS) bolus 11-08 08-15 mL/hr, 500 it y of infusion 17:00: 16:22 mL, IV [place] 500 mL 00 :00 Infusion, Medical ONCE, 1 Branch dose, [place] 11/08/20 at 1200, STAT NaCl 0.9% 2020- No 500mL at 999 Univ ers (NS) bolus 11-08 08-15 mL/hr, 500 it y of infusion 17:00: 16:22 mL, IV [place] 500 mL 00 :00 Infusion, Medical ONCE, 1 Branch dose, [place] 11/08/20 at 1200, STAT DULoxetine Yes 90mg 90 mg, Unive rs (CYMBALTA) 11-08 Oral, ity of capsule 90 14:00: DAILY, [place] mg 00 First dose Medical on [facility] 11/08/20 at 0900, Until Discontinu ed, Routine DULoxetine 0 Yes 90mg 90 mg, Unive rs (CYMBALTA) 8-15 Oral, ity of capsule 90 14:00: DAILY, [place] mg 00 First dose Medical on [facility] 11/08/20 at 0900, Until Discontinu ed, Routine cyclobenzap 0 Yes 10mg 10 mg, Univ ers rine 8-15 Oral, ity of (FLEXERIL) 05:45: BIDPRN, [place] tablet 10 Starting Medica l mg [facility] 11/08/20 at 0045, Until Discontinu ed, Routine, Muscle Spasms cyclobenzap 0 Yes 10mg 10 mg, Univ ers rine 815 Oral, ity of (FLEXERIL) 05:45: BIDPRN, [place] tablet 10 Starting Medica l mg [facility] 11/08/20 at 0045, Until Discontinu ed, Routine, Muscle Spasms dexamethaso 2020-0 202- No 6mg 6 mg, Slow Univers ne 11-07 IV Push, ity of (DECADRON 17:00: 21:41 QNOON, [place] PHOSPHATE) 00 :50 First dose Med ical injection 6 (after Branch mg last reorder) on [facility] 11/07/20 at 1200, Until Discontinu ed, Routine dexamethaso 2020- No 6mg 6 mg, Slow Univers ne 11-07 IV Push, ity of (DECADRON 17:00: 21:41 QNOON, [place] PHOSPHATE) 00 :50 First dose Med ical injection 6 (after Branch mg last reorder) on [facility] 11/07/20 at 1200, Until Discontinu ed, Routine acetaminoph 0 Yes 650mg 650 mg, Un raghav en 11-07 Oral, ity of (TYLENOL) 16:45: Q4HPRN, [place] tablet 650 00 Starting Medic al mg [facility] 11/07/20 at 1145, Until Discontinu ed, Routine, Pain (scale 1-3), Temp > 38.5 C ascorbic 2020-0 Yes 1000mg [Order 1 Uni vers acid 11-07 Start] ity of (vitamin C) 16:45: Name: [place] (VITAMIN C) 00 ascorbic Medi scott tablet [...] 11-07 Oral, ity of (TYLENOL) 16:45: Q4HPRN, [place] tablet 650 00 Starting Medic al mg [...] 1 tablet, Oral, DAILY, First dose on [place] 11/08/20 at 0900, Until Discontinu ed, Routine [...] 650 06 :12 Starting Medic al mg [facility] Branch 11/07/20 at 1035, Until [facility] 11/07/20 at 1133, Routine, Temp > 38.5 [...] 40 mg 00 First dose Medical on [facility] Branch 11/07/20 at 0900, Until Discontinu ed, Routine enoxaparin 2020-0 Yes 40mg 40 mg, Unive rs (LOVENOX) 8-14 Subcutaneo ity of injection 14:00: [place], DAILY, [place] 40 mg 00 First dose Medical on [facility] Branch 11/07/20 at 0900, Until Discontinu ed, Routine levothyroxi 2020-0 Yes 25ug 25 mcg, Uni vers ne 8-14 Oral, ity of (SYNTHROID) 11:00: QAM-0600, [place] tablet 25 00 First dose Medi [place]ott mcg on [facility] Branch 11/07/20 at 0600, Until Discontinu ed, Routine levothyroxi 2020-0 Yes 25ug 25 mcg, Uni vers ne 8-14 Oral, ity of (SYNTHROID) 11:00: QAM-0600, [place] tablet 25 00 First dose Medi [place] mcg on [facility] Branch 11/07/20 at 0600, Until Discontinu ed, Routine albuterol-i 2020-0 Yes 1{puff} 1 Puff, Univers pratropium 8-14 Inhalation ity of (COMBIVENT 07:30: , Q6H, [place] RESPIMAT) 00 First dose Medi [place]ott 20-100 on Sat Branch mcg/actuati 11/07/20 at on inhaler 0230, 1 Puff Until Discontinu ed, Routine
Is this order for a patient with suspected or confirmed COVID-19 infection? Yes albuterol-i 2020-0 Yes 1{puff} 1 Puff, Univers pratropium 8 Inhalation ity of (COMBIVENT 07:30: , Q6H, [place] RESPIMAT) 00 First dose Medi [place]ott 20-100 on Sat Branch mcg/actuati 11/07/20 at on inhaler 0230, 1 Puff Until Discontinu ed, Routine
Is this order for a patient with suspected or confirmed COVID-19 infection? Yes ondansetron 2020-0 Yes 4mg 4 mg, Slow Univers (ZOFRAN 8-14 IV Push, ity of (PF)) 07:17: Q6HPRN, [place] injection 4 34 Starting Medi scott mg Sat Branch 11/07/20 at 0217, Until Discontinu ed, Routine, Nausea and Vomiting (N/V) ondansetron 2020-0 Yes 4mg 4 mg, Slow Univers (ZOFRAN 8-14 IV Push, ity of (PF)) 07:17: Q6HPRN, [place] injection 4 34 Starting Medi scott mg [...] 11/06/20 at 1930, STAT iopamidol 2020- No [id number] 100mL 100 mL, Univers (ISOVUE 11-06 Intravenou ity o f 370-500 mL) 23:15: 21:58 s, ONCE, 1 [place] injection 00 :00 dose, Fri Medic al 100 mL 11/06/20 at Branch 1815, Routine iopamidol 2020- No [id number] 100mL 100 mL, Univers (ISOVUE 11-06 Intravenou ity o f 370-500 mL) 23:15: 21:58 s, ONCE, 1 [place] injection 00 :00 dose, Fri Medic al 100 mL 11/06/20 at Branch 1815, Routine imdevimab 2020- No IV Univers ([id number]) 11-06 Infusion, it y of 600 mg, 22:15: 22:35 ONCE, Fri [place] casirivimab 00 :00 11/06/[address] [facility] ([id number]) 1715, For Bra nch 600 mg in 1 NaCl 0.9% dose
Ad (NS) 60 mL gallery or museum curator infusion as an IV infusion via pump or gravity through an intravenou s line containing a sterile, in-line or add-on 0.2-micron polyethers ulfone (PES) filter. Stable 36 hours refrigerat ed; 4 hours at room temperatur e.
imdevimab 2020- No IV Univers ([id number]) 11-06 Infusion, it y of 600 mg, 22:15: 22:35 ONCE, Fri [place] casirivimab 00 :00 11/06/[address] [facility] ([id number]) 1715, For Bra nch 600 mg in 1 NaCl 0.9% dose
Ad (NS) 60 mL gallery or museum curator infusion as an IV infusion via pump or gravity through an intravenou s line containing a sterile, in-line or add-on 0.2-micron polyethers ulfone (PES) filter. Stable 36 hours refrigerat ed; 4 hours at room temperatur e.
ibuprofen 2020- No 800mg 800 mg, Uni vers (IBU) 11-06 Oral, ity of tablet 800 22:00: 21:13 ONCE, 1 [place] mg 00 :00 dose, [facility] Medical 11/06/20 at Branch 1700, MARCIN acetaminoph 2020- No 1000mg 1,000 mg, Univers en 11-06 Oral, ity of (TYLENOL) 22:00: 21:12 ONCE, 1 [place] tablet 00 :00 dose, [facility] Medical 1,000 mg 11/06/20 at [facility] h 1700, Routine dexamethaso 2020- No [...] 10 mg 1700, STAT casirivimab 2020- No [id number] 1200mg Univers -imdevimab 11-06 ity of (REGEN-COV 21:30: 09:29 [place] (EUA)) 00 :00 Medical 1,200 mg in Branch NaCl 0.9% (NS) 60 mL IV infusion casirivimab 2020- No [id number] 1200mg Univers -imdevimab 11-06 ity of (REGEN-COV 21:30: 09:29 [place] (EUA)) 00 :00 Medical 1,200 mg in Branch NaCl 0.9% (NS) 60 mL IV infusion casirivimab 0 2020- No [id number] 1200mg Univers -imdevimab 11-06 ity of (REGEN-COV 21:30: 09:29 [place] (EUA)) 00 :00 Medical 1,200 mg in Branch NaCl 0.9% (NS) 60 mL IV infusion cholecalcif 2018-0 Yes 1{capsu Take 1 U nivers ravindra, 7-16 le} capsule by ity of vitamin D3, 13:35: mouth [place] 2,000 unit 30 daily. MD adalberto xie [facility] lisinopril Yes 40mg Take 40 mg U nivers (PRINIVIL,Z 7-16 by mouth ity of ESTRIL) 40 13:35: daily. [place] mg tablet 30 MD Aakash xie [facility] pioglitamichelle Yes 1{tbl} Take 1 Un raghav e-metFORMIN 7-16 tablet by ity of (ACTOPLUS 13:35: mouth [place] MET) 15-850 30 daily. Pt mg per unsure if Anderso tablet taking n Actos or Cancer Actosplus. Center Will call to clarify lisinopril Yes 40mg Take 40 mg U nivers (PRINIVIL,Z 7-16 by mouth ity of ESTRIL) 40 13:35: daily. [place] mg tablet 30 MD Aakash xie [facility] piogledyta Yes 1{tbl} Take 1 Un raghav e-metFORMIN 7-16 tablet by ity of (ACTOPLUS 13:35: mouth [place] MET) 15-850 30 daily. Pt mg per unsure if [place]o tablet taking n Actos or Cancer Actosplus. Center Will call to clarify cholecalcif Yes 1{capsu Take 1 U nivers ravindra, 7-16 le} capsule by ity of vitamin D3, 13:35: mouth [place] 2,000 unit 30 daily. MD adalberto xie [facility] pioglitazorojas Yes 30{tbl} Take 30 Univers e (ACTOS) 7-16 tablets by ity of 30 mg 13:35: mouth [place] tablet 29 daily. Pt can't Anderso recall if n [facility] Cancer taking Center Actos or Actosplus. Will clarify atorvastati Yes 1{tbl} Take 1 Un raghav n (LIPITOR) 7-16 tablet by ity of 20 mg 13:35: mouth [place] tablet 29 daily. MD Aakash xie [facility] pioglitazorojas Yes 30{tbl} Take 30 Univers e (ACTOS) 7-16 tablets by ity of 30 mg 13:35: mouth [place] tablet 29 daily. Pt can't Anderso recall if n [facility]'s Cancer taking Center Actos or Actosplus. Will clarify atorvastati Yes 1{tbl} Take 1 Un raghav n (LIPITOR) 7-16 tablet by ity of 20 mg 13:35: mouth [place] tablet 29 daily. MD Aakash xie [facility] sitaGLIPtin Yes 100mg Take 100 U nivers (JANUVIA) 3-01 mg by ity of 100 mg 00:00: mouth [place] tablet 00 daily. MD Aakash xie [facility] sitaGLIPtin Yes 100mg Take 100 U nivers (JANUVIA) 3-01 mg by ity of 100 mg 00:00: mouth [place] tablet 00 daily. MD Aakash xie [facility] metFORMIN Yes 1{tbl} Take 1 Univ ers (GLUCOPHAGE 4-01 tablet by ity of ) 1000 mg 00:00: mouth [place] tablet 00 daily. MD Aakash xie [facility] metFORMIN Yes 1{tbl} Take 1 Univ ers (GLUCOPHAGE 4-01 tablet by ity of ) 1000 mg 00:00: mouth [place] tablet 00 daily. MD Aakash xie [facility] levothyroxi Yes [id number] 25ug Take 1 Tab Univers ne 6-29 by mouth ity of (SYNTHROID) 00:00: every [place] 25 mcg 00 morning. Medical tablet Branch levothyroxi Yes [id number] 25ug Take 1 Tab Univers ne 6-29 by mouth ity of (SYNTHROID) 00:00: every [place] 25 mcg 00 morning. Medical tablet Branch levothyroxi Yes [id number] 25ug Take 1 Tab Univers ne 6-29 by mouth ity of (SYNTHROID) 00:00: every [place] 25 mcg 00 morning. Medical tablet Branch levothyroxi Yes [id number] 25ug Take 1 Tab Univers ne 6-29 by mouth ity of (SYNTHROID) 00:00: every [place] 25 mcg 00 morning. Medical tablet Branch levothyroxi Yes [id number] 25ug Take 1 Tab Univers ne 6-29 by mouth ity of (SYNTHROID) 00:00: every [place] 25 mcg 00 morning. Medical tablet Branch cyclobenzap Yes Univer s rine 4-16 ity of (FLEXERIL) 00:00: [place] 10 mg 00 Medical tablet Branch meloxicam 2015-0 Yes 15mg Take 15 mg Un raghav (MOBIC) 15 4-16 by mouth ity o f mg tablet 00:00: daily. [place] [facility] Branch cyclobenzap 0 Yes Univer s rine 4-16 ity of (FLEXERIL) 00:00: [place] 10 mg 00 Medical tablet Branch meloxicam 2014-0 Yes 15mg Take 15 mg Un raghav (MOBIC) 15 4-16 by mouth ity o f mg tablet 00:00: daily. [place] [facility] Branch cyclobenzap Yes Univer s rine 4-16 ity of (FLEXERIL) 00:00: [place] 10 mg 00 Medical tablet Branch meloxicam 0 Yes 15mg Take 15 mg Un raghav (MOBIC) 15 4-16 by mouth ity o f mg tablet 00:00: daily. [place] [facility] Branch cyclobenzap Yes Univer s rine 4-16 ity of (FLEXERIL) 00:00: [place] 10 mg 00 Medical tablet Branch meloxicam 0 Yes 15mg Take 15 mg Un raghav (MOBIC) 15 4-16 by mouth ity o f mg tablet 00:00: daily. [place] [facility] Branch cyclobenzap Yes Univer s rine 4-16 ity of (FLEXERIL) 00:00: [place] 10 mg 00 Medical tablet Branch meloxicam 0 Yes 15mg Take 15 mg Un raghav (MOBIC) 15 4-16 by mouth ity o f mg tablet 00:00: daily. [address] Vital Signs Vital Name Observation Time Observation Value Comments Source Body temperature 2020-11-17 20:00:00 36.89 [facility] Systolic blood 2020-11-17 16:06:00 101 mm[Hg] Univer sity of pressure [facility] Diastolic blood 2020-11-17 16:06:00 69 mm[Hg] Unive rsity of pressure [facility] Heart rate 2020-11-17 16:06:00 59 /[facility] Respiratory rate 2020-11-17 16:06:00 18 /min [facility] Oxygen saturation in 2020-11-17 16:06:00 95 /min [facility] Arterial blood by [facility] Pulse oximetry Branch Body weight 2020-11-14 09:02:00 87 kg [facility] BMI 2020-11-14 09:02:00 32.92 kg/m2 [facility] Body height 2020-11-07 02:32:00 162.6 cm [facility] Body height 2020-11-06 20:23:00 165.1 cm [facility] Body weight 2020-11-06 20:23:00 88.451 kg [facility] BMI 2020-11-06 20:23:00 32.45 kg/m2 [facility] Procedures Procedure Date / Time Performing Clinician Source Performed COMP. METABOLIC PANEL 2020-11-14 09:13:00 Adin Swan [facility] ([id number] [place] [address] COMP. METABOLIC PANEL 2020-11-13 11:31:00 Adin Swan [facility] ([id number] [place] [address] COMP. METABOLIC PANEL 2020-11-12 11:14:00 Adin Swan [facility] ([id number]) [facility] CBC WITH DIFF 2020-11-12 11:14:00 Adin Swan [facility] MAGNESIUM 2020-11-11 09:52:00 Adin Swan [facility] COMP. METABOLIC PANEL 2020-11-11 09:52:00 Adin Swan [facility] ([id number] [place] [address] COMP. METABOLIC PANEL 2020-11-10 10:03:00 Mary lissette [facility] ([id number]) [facility] CBC WITH DIFF 2020-11-10 10:03:00 Adin Swan [facility] N-TERMINAL PRO-BNP 2020-11-10 10:03:00 Rose Hernandez [facility] COMP. METABOLIC PANEL 2020-11-09 09:02:00 Mary lissette [facility] ([id number] N-TERMINAL PRO-BNP 2020-11-09 09:02:00 Rose Hernandez [facility] COMP. METABOLIC PANEL 2020-11-08 10:06:00 Rose Hernandez [facility] ([id number]) [facility] CBC WITH DIFF 2020-11-08 10:06:00 Mary [facility] N-TERMINAL PRO-BNP 2020-11-08 10:06:00 Mary [facility] ACUTE CARE VENOUS BLOOD 2020-11-08 10:05:00 Mary [facility] ACUTE CARE VENOUS BLOOD 2020-11-07 15:42:00 Mary [facility] GAS [facility] PHOSPHORUS 2020-11-07 15:36:00 Mary [facility] CREATINE KINASE 2020-11-07 15:36:00 Mary [facility] URIC ACID 2020-11-07 15:36:00 Mary [facility] MAGNESIUM 2020-11-07 15:36:00 Mary [facility] TROPONIN I 2020-11-07 15:36:00 Mary [facility] THYROID STIMULATING 2020-11-07 15:36:00 Mary [facility] HORMONE [facility] Branch COMP. METABOLIC PANEL 2020-11-07 15:36:00 Mary [facility] ([id number]) [facility] LIPID PANEL 2020-11-07 15:36:00 Mary [facility] ([id number])(TOTAL Medical Branch CHOLESTEROL, TRIGLYCERIDES, HDL) N-TERMINAL PRO-BNP 2020-11-07 15:36:00 Mary [facility] VITAMIN D, 25-OH 2020-11-07 15:36:00 Mary [facility] CBC WITH DIFF 2020-11-07 15:35:00 Mary [facility] GLYCOSYLATED HEMOGLOBIN 2020-11-07 15:35:00 Mary [facility] (A1C) [facility] URINALYSIS 2020-11-06 23:29:00 [facility] CT CHEST PULMONARY 2020-11-06 22:02:23 Priyanka Ivey [facility] ANGIOGRAM Medical Branch HB ECG ROUTINE & RHYTHM 2020-11-06 21:25:45 Priyanka Ivey [facility] VITAMIN B12, LEVEL 2020-11-06 21:19:00 Rose Hernandez [facility] C-REACTIVE PROTEIN 2020-11-06 21:19:00 Priyanka Ivey [facility] TROPONIN I 2020-11-06 21:19:00 [facility] MET[facility]OLIC PANEL 2020-11-06 21:19:00 Priyanka Ivey [facility] ([id number]) [facility] CBC WITH DIFF 2020-11-06 21:19:00 [facility] D-DIMER 2020-11-06 21:19:00 [facility] N-TERMINAL PRO-BNP 2020-11-06 21:19:00 [facility] PROCALCITONIN 2020-11-06 21:19:00 [facility] Plan of Care Planned Activity Planned Date Details Comments Source Future Scheduled 2021-09-29 COVID-19 Vaccination [facility] [place] Test 05:42:09 (#1) [code = LUANAID-19 [facility] Vaccination (#1)] Center Future Scheduled 2021-09-29 COVID-19 Vaccination [facility] [place] Test 05:42:09 (#1) [code = LUANAID-19 [facility] Vaccination (#1)] Center Encounters Start End Encounter Admission Attending Care Care Encounter Source Date/Time Date/Time Type Type Clinicians Facility Department ID 2021-01-25 Emergency [facility] [id number] Univers 15:27:22 ity [facility] 2022-05-16 2022-05-16 Outpatient KATIE ZARAGOZA [id number] Katie 10:15:00 10:15:00 VIVIEN javed 2022-05-16 2022-05-16 Outpatient KATIE ZARAGOZA [id number] Katie 09:30:00 09:30:00 VIVIEN javed 2021-11-18 2021-11-18 Outpatient FOG_A_Provi AOSM AOSM [id number] Talia 00:00:00 00:00:00 mara [id number] [facility] 2021-10-06 2021-10-06 Outpatient ISAMAR ZELAYA [id number] [place] 02:41:00 02:41:00 [id number] [facility] 2020-11-18 2020-11-18 Transition Batsheva Eugene [id number] Univers 00:00:00 00:00:00 of Care Olamide Ramos 350.1.13.10 [id number] [facility] [address] 2020-11-06 2020-11-17 Hospital Priyanka Ivey [facility] 1.2.840. 114 [id number] Univers 15:50:00 16:45:00 Encounter Sami Hong 350.1.13.10 [place] [id number] [facility] [address] 2020-11-06 2020-11-06 Nurse Therapy, Adc Covid Infusion [facility] 1.2.840.114 [id number] Univers 14:03:27 15:03:27 Visit Francisco Pulido 350.1.13.10 [place] [id number] Med [facility] [address] 2020-11-06 2020-11-06 Outpatient Sandra [facility] [id number] Univers 15:00:00 15:00:00 FRANCISCO ansari [facility] 2020-02-12 2020-02-12 Outpatient Ena MMG MMG [id number] 020 [place] 02:35:00 02:35:00 [facility]8 [facility] Results Test Description Test Time Test Comments Results Result Comments Source COMP. METABOLIC PANEL ([id number]) 2020-11-14 09:52:34 Test Item Value Reference Range Interpretation Comme nts NA (test code = 4028913882) 139 mmol/L 135-145 K (test code = 5735154901) 4.6 mmol/L 3.5-5.0 CL (test code = 7599950286) 99 mmol/L 98-108 CO2 TOTAL (test code = 3029012793) 31 mmol/L 23-31 AGAP (test code = 3116253331) 2-16 BUN (test code = 2854510148) 21 mg/dL 7-23 GLUCOSE (test code = 9995093681) 128 mg/dL 70-110 H CREATININE (test code = 0.49 mg/dL 0.50-1.04 L 9712848263) TOTAL BILI (test code = 0.5 mg/dL 0.1-1.3 0213325583) CALCIUM (test code = 6230434276) 9.5 mg/dL 8.6-10.6 T PROTEIN (test code = 3185030464) 5.9 g/dL 6.3-8.2 L ALBUMIN (test code = 4497912596) 3.2 g/dL 3.5-5.0 L ALK PHOS (test code = 8323657365) 91 U/L 34-122 ALTv (test code = 1742-6) 137 U/L 5-35 H AST(SGOT) (test code = 4118301082) 30 U/L 13-40 eGFR (test code = 2087448300) mL/min/1.73m2 GYPSY (test code = GYPSY) Association [...] tests). Lab Interpretation (test code = Abnormal 75557-3) [facility] METABOLIC PANEL ([id number])2020-11-14 09:52:34 Test Item Value Reference Range Interpretation Comments NA (test code = 5341065579) 139 mmol/L 135-145 K (test code = 0231103013) 4.6 mmol/L 3.5-5.0 CL (test code = 0396682143) 99 mmol/L 98-108 CO2 TOTAL (test code = 3112560775) 31 mmol/L 23-31 AGAP (test code = 2986237350) 2-16 BUN (test code = 8091590068) 21 mg/dL 7-23 GLUCOSE (test code = 0178120495) 128 mg/dL 70-110 H CREATININE (test code = 0.49 mg/dL 0.50-1.04 L 9453616165) TOTAL BILI (test code = 0.5 mg/dL 0.1-1.3 7520682110) CALCIUM (test code = 6968947653) 9.5 mg/dL 8.6-10.6 T PROTEIN (test code = 6698030277) 5.9 g/dL 6.3-8.2 L ALBUMIN (test code = 2469700957) 3.2 g/dL 3.5-5.0 L ALK PHOS (test code = 7011896979) 91 U/L 34-122 ALTv (test code = 1742-6) 137 U/L 5-35 H AST(SGOT) (test code = 2714048295) 30 U/L 13-40 eGFR (test code = 8727109789) mL/min/1.73m2 GYPSY (test code = GYPSY) Lab Interpretation (test code = Abnormal 11164-9) [facility] METABOLIC PANEL ([id number])2020-11-13 13:05:31 Test Item Value Reference Range Interpretation Comments NA (test code = 138 mmol/L 135-145 6805444418) K (test code = 4.5 mmol/L 3.5-5.0 1260903266) CL (test code = 100 mmol/L 98-108 2989692840) CO2 TOTAL (test code = 30 mmol/L 23-31 6355256510) AGAP (test code = 2-16 6454523971) BUN (test code = 21 mg/dL 7-23 3113347887) GLUCOSE (test code = 109 mg/dL 70-110 8026862184) CREATININE (test code = 0.47 mg/dL 0.50-1.04 L 0213453828) TOTAL BILI (test code = 0.6 mg/dL 0.1-1.4 9958210820) CALCIUM (test code = 9.3 mg/dL 8.6-10.6 4416614618) T PROTEIN (test code = 6.0 g/dL 6.3-8.2 L 9413194589) ALBUMIN (test code = 3.1 g/dL 3.5-5.0 L 1174575951) ALK PHOS (test code = 101 U/L 34-122 8755858032) ALTv (test code = 191 U/L 5-35 H 1742-6) AST(SGOT) (test code = 41 U/L 13-40 H 6117479609) eGFR (test code = mL/min/1.73m2 5248473994) GYPSY (test code = GYPSY) Association of [...] tests). Lab Interpretation Abnormal (test code = 85948-9) [facility]. METABOLIC PANEL ([id number])2020-11-13 13:05:31 Test Item Value Reference Range Interpretation Comments NA (test code = 0146180170) 138 mmol/L 135-145 K (test code = 0537000615) 4.5 mmol/L 3.5-5.0 CL (test code = 6814423669) 100 mmol/L 98-108 CO2 TOTAL (test code = 5856252277) 30 mmol/L 23-31 AGAP (test code = 1318733672) 2-16 BUN (test code = 1390055804) 21 mg/dL 7-23 GLUCOSE (test code = 0917945319) 109 mg/dL 70-110 CREATININE (test code = 0.47 mg/dL 0.50-1.04 L 5878780437) TOTAL BILI (test code = 0.6 mg/dL 0.1-1.3 0573237687) CALCIUM (test code = 4685084587) 9.3 mg/dL 8.6-10.6 T PROTEIN (test code = 1646699932) 6.0 g/dL 6.3-8.2 L ALBUMIN (test code = 5656126896) 3.1 g/dL 3.5-5.0 L ALK PHOS (test code = 5882581014) 101 U/L 34-122 ALTv (test code = 1742-6) 191 U/L 5-35 H AST(SGOT) (test code = 3009699078) 41 U/L 13-40 H eGFR (test code = 3333613005) mL/min/1.73m2 GYPSY (test code = GYPSY) Lab Interpretation (test code = Abnormal 17968-5) [facility] WITH [id number] 13:23:48 Test Item Value Reference Range Interpretation [...] RDW-SD (test code = 39.9 fL 39.0-49.9 59617-3) RDW-CV (test code = 12.0 % 12.0-15.5 788-0) PLT (test code = See_Comment [Automated 777-3) message] The sy stem which generated this result transmitted reference range : 166 - 358 10*3/ ?L. The reference r leann was not used to interpret this result as normal/abnormal . MPV (test code = 10.0 fL 9.5-12.9 33234-4) NRBC/100 WBC (test See_Comment [Automat ed code = 1670118001) message] The system which generated this result transmitted reference range : 0.0 - 10.0 /100 WBCs. The refer ence range was not u sed to interpret th is result as normal/abnormal . NRBC x10^3 (test code <0.01 See_Comment [Auto mated = 0504651305) message] The s ystem which generated this result transmitted reference range : 10*3/?L. The reference range was not used to interpret this result as normal/abnormal . GRAN MAT (NEUT) % 78.7 % (test code = 770-8) IMM GRAN % (test code 2.90 % = 5553272072) LYMPH % (test code = 14.0 % 736-9) MONO % (test code = 4.0 % 5905-5) EOS % (test code = 0.2 % 713-8) BASO % (test code = 0.2 % 706-2) GRAN MAT x10^3(ANC) 8.56 10*3/uL 1.88-7.09 H (test code = 6622311862) IMM GRAN x10^3 (test 0.32 10*3/uL 0.00-0.06 H code = 3396218724) LYMPH x10^3 (test code 1.53 10*3/uL 1.32-3.29 = 731-0) MONO x10^3 (test code 0.44 10*3/uL 0.33-0.92 = 742-7) EOS x10^3 (test code = <0.03 0.03-0.39 L 711-2) BASO x10^3 (test code <0.03 0.01-0.07 = 704-7) BANDS (test code = Increased A 2305234697) Lab Interpretation Abnormal (test code = 89003-0) [facility] WITH [id number] 13:23:48 Test Item Value Reference Range Interpretation Comments WBC (test code = See_Comment [Automated 90-2) message] The sy stem which generated this result transmitted reference range : 4.30 - 11.10 10*3/?L. The reference range was not used to interpret this result as normal/abnormal . RBC (test code = See_Comment [Automated 307-8) message] The sy stem which generated this [...] RDW-SD (test code = 39.9 fL 39.0-49.9 21592-5) RDW-CV (test code = 12.0 % 12.0-15.5 788-0) PLT (test code = See_Comment [Automated 777-3) message] The sy stem which generated this result transmitted reference range : 166 - 358 10*3/ ?L. The reference r leann was not used to interpret this result as normal/abnormal . MPV (test code = 10.0 fL 9.5-12.9 00076-3) NRBC/100 WBC (test See_Comment [Automat ed code = 8588495031) message] The system which generated this result transmitted reference range : 0.0 - 10.0 /100 WBCs. The refer ence range was not u sed to interpret th is result as normal/abnormal . NRBC x10^3 (test code <0.01 See_Comment [Auto mated = 6779508048) message] The s ystem which generated this result transmitted reference range : 10*3/?L. The reference range was not used to interpret this result as normal/abnormal . GRAN MAT (NEUT) % 78.7 % (test code = 770-8) IMM GRAN % (test code 2.90 % = 8231966255) LYMPH % (test code = 14.0 % 736-9) MONO % (test code = 4.0 % 5905-5) EOS % (test code = 0.2 % 713-8) BASO % (test code = 0.2 % 706-2) GRAN MAT x10^3(ANC) 8.56 10*3/uL 1.88-7.09 H (test code = 8887473164) IMM GRAN x10^3 (test 0.32 10*3/uL 0.00-0.06 H code = 9951726832) LYMPH x10^3 (test code 1.53 10*3/uL 1.32-3.29 = 731-0) MONO x10^3 (test code 0.44 10*3/uL 0.33-0.92 = 742-7) EOS x10^3 (test code = <0.03 0.03-0.39 L 711-2) BASO x10^3 (test code <0.03 0.01-0.07 = 704-7) BANDS (test code = Increased A 0865398987) Lab Interpretation Abnormal (test code = 08341-0) [facility]. METABOLIC PANEL ([id number])2020-11-12 12:39:40 Test Item Value Reference Range Interpretation Comments NA (test code = 136 mmol/L 135-145 1345776739) K (test code = 4.2 mmol/L 3.5-5.0 1571039053) CL (test code = 99 mmol/L 98-108 9956692430) CO2 TOTAL (test code = 32 mmol/L 23-31 H 7668859850) AGAP (test code = 2-16 2324904228) BUN (test code = 20 mg/dL 7-23 1526726383) GLUCOSE (test code = 87 mg/dL 70-110 8417929778) CREATININE (test code = 0.40 mg/dL 0.50-1.04 L 0193431987) TOTAL BILI (test code = 0.9 mg/dL 0.1-1.9 2205193072) CALCIUM (test code = 8.6 mg/dL 8.6-10.6 1491553703) T PROTEIN (test code = 5.4 g/dL 6.3-8.2 L 0950382302) ALBUMIN (test code = 2.7 g/dL 3.5-5.0 L 9237864562) ALK PHOS (test code = 79 U/L 34-122 6964695293) ALTv (test code = 233 U/L 5-35 H 1742-6) AST(SGOT) (test code = 66 U/L 13-40 H 1744447386) eGFR (test code = mL/min/1.73m2 7762377397) GYPSY (test code = GYPSY) Association of [...] tests). Lab Interpretation Abnormal (test code = 71803-3) [facility]. METABOLIC PANEL ([id number])2020-11-12 12:39:40 Test Item Value Reference Range Interpretation Comments NA (test code = 6649851642) 136 mmol/L 135-145 K (test code = 6797671198) 4.2 mmol/L 3.5-5.0 CL (test code = 8533106501) 99 mmol/L 98-108 CO2 TOTAL (test code = 6327624354) 32 mmol/L 23-31 H AGAP (test code = 1192140488) 2-16 BUN (test code = 0876636980) 20 mg/dL 7-23 GLUCOSE (test code = 3567532117) 87 mg/dL 70-110 CREATININE (test code = 0.40 mg/dL 0.50-1.04 L 3860119596) TOTAL BILI (test code = 0.9 mg/dL 0.1-1.4 9754136388) CALCIUM (test code = 8864390764) 8.6 mg/dL 8.6-10.6 T PROTEIN (test code = 2956168081) 5.4 g/dL 6.3-8.2 L ALBUMIN (test code = 2717255103) 2.7 g/dL 3.5-5.0 L ALK PHOS (test code = 2368507503) 79 U/L 34-122 ALTv (test code = 1742-6) 233 U/L 5-35 H AST(SGOT) (test code = 4274731711) 66 U/L 13-40 H eGFR (test code = 3330128092) mL/min/1.73m2 GYPSY (test code = GYPSY) Lab Interpretation (test code = Abnormal 34607-2) [facility] Test Item Value Reference Range Interpretation Comments MAGNESIUM (test code = 3107961543) 2.0 mg/dL 1.7-2.4 Lab Interpretation (test code = Normal 97547-4) [facility] Test Item Value Reference Range Interpretation Comments MAGNESIUM (test code = 7214352618) 2.0 mg/dL 1.7-2.4 Lab Interpretation (test code = Normal 15733-3) [facility]. METABOLIC PANEL ([id number])2020-11-11 11:38:47 Test Item Value Reference Range Interpretation Comments NA (test code = 139 mmol/L 135-145 0520740974) K (test code = 4.2 mmol/L 3.5-5.0 0984836900) CL (test code = 100 mmol/L 98-108 6177162726) CO2 TOTAL (test code = 32 mmol/L 23-31 H 5628468355) AGAP (test code = 2-16 8151318890) BUN (test code = 21 mg/dL 7-23 3532958121) GLUCOSE (test code = 93 mg/dL 70-110 6887642312) CREATININE (test code = 0.50 mg/dL 0.50-1.04 0242714428) TOTAL BILI (test code = 0.7 mg/dL 0.1-1.0 8129382573) CALCIUM (test code = 8.9 mg/dL 8.6-10.6 5336791593) T PROTEIN (test code = 6.0 g/dL 6.3-8.2 L 3454708354) ALBUMIN (test code = 3.0 g/dL 3.5-5.0 L 0562112128) ALK PHOS (test code = 89 U/L 34-122 2814225855) ALTv (test code = 344 U/L 5-35 H 1742-6) AST(SGOT) (test code = 149 U/L 13-40 H 6432187684) eGFR (test code = mL/min/1.73m2 5006540957) GYPSY (test code = GYPSY) Association of [...] tests). Lab Interpretation Abnormal (test code = 00687-1) [facility]. METABOLIC PANEL ([id number])2020-11-11 11:38:47 Test Item Value Reference Range Interpretation Comments NA (test code = 4245157697) 139 mmol/L 135-145 K (test code = 8387341376) 4.2 mmol/L 3.5-5.0 CL (test code = 6262713262) 100 mmol/L 98-108 CO2 TOTAL (test code = 0060493478) 32 mmol/L 23-31 H AGAP (test code = 7594507303) 2-16 BUN (test code = 2739422758) 21 mg/dL 7-23 GLUCOSE (test code = 4487588163) 93 mg/dL 70-110 CREATININE (test code = 0.50 mg/dL 0.50-1.04 6836972560) TOTAL BILI (test code = 0.7 mg/dL 0.1-1.3 9555471214) CALCIUM (test code = 5909820583) 8.9 mg/dL 8.6-10.6 T PROTEIN (test code = 0949146826) 6.0 g/dL 6.3-8.2 L ALBUMIN (test code = 6371368543) 3.0 g/dL 3.5-5.0 L ALK PHOS (test code = 1608145799) 89 U/L 34-122 ALTv (test code = 1742-6) 344 U/L 5-35 H AST(SGOT) (test code = 3720422696) 149 U/L 13-40 H eGFR (test code = 0272648370) mL/min/1.73m2 GYPSY (test code = GYPSY) Lab Interpretation (test code = Abnormal 11228-8) [id number] 10:50:21 Test Item Value Reference Range Interpretation Comments NT-proBNP (test code 424 pg/mL See_Comment H [Autom ated = 3382022183) message] The system which generated this result transmitted reference range : <=125. The reference range was not used to interpret this result as normal/abnormal . GYPSY (test code = GYPSY) Biotin has been reported to cause a negative bias, interpret results relative to patient's use of biotin. Lab Interpretation Abnormal (test code = 03348-3) [facility] [id number] 10:50:21 Test Item Value Reference Range Interpretation Comments NT-proBNP (test code = 424 pg/mL See_Comment H [Aut omated message] 5074337661) The system MyVR generated this result transmit amanda reference range : <=125. The refe rence range was not u sed to interpret th is result as normal/abnormal . GYPSY (test code = GYPSY) Lab Interpretation (test Abnormal code = 99222-0) [facility]. METABOLIC PANEL (44977)2020-11-10 10:43:35 Test Item Value Reference Range Interpretation Comments NA (test code = 139 mmol/L 135-145 9039034245) K (test code = 4.5 mmol/L 3.5-5.0 2751021053) CL (test code = 103 mmol/L 98-108 0872249557) CO2 TOTAL (test code = 32 mmol/L 23-31 H 7928803002) AGAP (test code = 2-16 8620510308) BUN (test code = 25 mg/dL 7-23 H 0945676262) GLUCOSE (test code = 133 mg/dL 70-110 H 8637435140) CREATININE (test code = 0.53 mg/dL 0.50-1.04 4430875542) TOTAL BILI (test code = 0.7 mg/dL 0.1-1.9 4835209148) CALCIUM (test code = 8.8 mg/dL 8.6-10.6 9473098528) T PROTEIN (test code = 6.0 g/dL 6.3-8.2 L 1794126715) ALBUMIN (test code = 3.0 g/dL 3.5-5.0 L 3448443000) ALK PHOS (test code = 91 U/L 34-122 3950905992) ALTv (test code = 334 U/L 5-35 H 1742-6) AST(SGOT) (test code = 274 U/L 13-40 H 7679575748) eGFR (test code = mL/min/1.73m2 3041126731) GYPSY (test code = GYPSY) Association of [...] tests). Lab Interpretation Abnormal (test code = 77575-8) [facility]. METABOLIC PANEL (55175)2020-11-10 10:43:35 Test Item Value Reference Range Interpretation Comments NA (test code = 2958007095) 139 mmol/L 135-145 K (test code = 7288405146) 4.5 mmol/L 3.5-5.0 CL (test code = 7412619641) 103 mmol/L 98-108 CO2 TOTAL (test code = 1197360823) 32 mmol/L 23-31 H AGAP (test code = 4814062106) 2-16 BUN (test code = 9128231998) 25 mg/dL 7-23 H GLUCOSE (test code = 5736843130) 133 mg/dL 70-110 H CREATININE (test code = 0.53 mg/dL 0.50-1.04 9559865812) TOTAL BILI (test code = 0.7 mg/dL 0.1-1.7 7664238041) CALCIUM (test code = 0099275025) 8.8 mg/dL 8.6-10.6 T PROTEIN (test code = 1026588446) 6.0 g/dL 6.3-8.2 L ALBUMIN (test code = 4751588489) 3.0 g/dL 3.5-5.0 L ALK PHOS (test code = 4553066268) 91 U/L 34-122 ALTv (test code = 1742-6) 334 U/L 5-35 H AST(SGOT) (test code = 1208564925) 274 U/L 13-40 H eGFR (test code = 2582440949) mL/min/1.73m2 GYPSY (test code = GYPSY) Lab Interpretation (test code = Abnormal 24082-8) [facility] WITH [id number] 10:37:37 Test Item Value Reference Range Interpretation Comments WBC (test code = See_Comment [Automated 8394-2) message] The sy stem which generated this result transmitted reference range : 4.30 - 11.10 10*3/?L. The reference range was not used to interpret this result as normal/abnormal . RBC (test code = See_Comment [Automated 049-8) message] The sy stem which generated this [...] RDW-SD (test code = 42.3 fL 39.0-49.9 28864-2) RDW-CV (test code = 12.4 % 12.0-15.5 788-0) PLT (test code = See_Comment [Automated 347-3) message] The sy stem which generated this result transmitted reference range : 166 - 358 10*3/ ?L. The reference r leann was not used to interpret this result as normal/abnormal . MPV (test code = 10.2 fL 9.5-12.9 94151-6) NRBC/100 WBC (test See_Comment [Automat ed code = 4123883452) message] The system which generated this result transmitted reference range : 0.0 - 10.0 /100 WBCs. The refer ence range was not u sed to interpret th is result as normal/abnormal . NRBC x10^3 (test code <0.01 See_Comment [Auto mated = 3051186537) message] The s ystem which generated this result transmitted reference range : 10*3/?L. The reference range was not used to interpret this result as normal/abnormal . GRAN MAT (NEUT) % 72.7 % (test code = 770-8) IMM GRAN % (test code 1.90 % = 7695516485) LYMPH % (test code = 20.1 % 736-9) MONO % (test code = 5.2 % 5905-5) EOS % (test code = 0.0 % 713-8) BASO % (test code = 0.1 % 706-2) GRAN MAT x10^3(ANC) 5.86 10*3/uL 1.88-7.09 (test code = 9057585983) IMM GRAN x10^3 (test 0.15 10*3/uL 0.00-0.06 H code = 6448040299) LYMPH x10^3 (test code 1.62 10*3/uL 1.32-3.29 = 731-0) MONO x10^3 (test code 0.42 10*3/uL 0.33-0.92 = 742-7) EOS x10^3 (test code = <0.03 0.03-0.39 L 711-2) BASO x10^3 (test code <0.03 0.01-0.07 = 704-7) Lab Interpretation Abnormal (test code = 05187-7) [facility] WITH [id number] 10:37:37 Test Item Value Reference Range Interpretation [...] RDW-SD (test code = 42.3 fL 39.0-49.9 82078-9) RDW-CV (test code = 12.4 % 12.0-15.5 788-0) PLT (test code = See_Comment [Automated 777-3) message] The sy stem which generated this result transmitted reference range : 166 - 358 10*3/ ?L. The reference r leann was not used to interpret this result as normal/abnormal . MPV (test code = 10.2 fL 9.5-12.9 01166-8) NRBC/100 WBC (test See_Comment [Automat ed code = 6314587439) message] The system which generated this result transmitted reference range : 0.0 - 10.0 /100 WBCs. The refer ence range was not u sed to interpret th is result as normal/abnormal . NRBC x10^3 (test code <0.01 See_Comment [Auto mated = 9590316535) message] The s ystem which generated this result transmitted reference range : 10*3/?L. The reference range was not used to interpret this result as normal/abnormal . GRAN MAT (NEUT) % 72.7 % (test code = 770-8) IMM GRAN % (test code 1.90 % = 8490444344) LYMPH % (test code = 20.1 % 736-9) MONO % (test code = 5.2 % 5905-5) EOS % (test code = 0.0 % 713-8) BASO % (test code = 0.1 % 706-2) GRAN MAT x10^3(ANC) 5.86 10*3/uL 1.88-7.09 (test code = 1345663149) IMM GRAN x10^3 (test 0.15 10*3/uL 0.00-0.06 H code = 7099615767) LYMPH x10^3 (test code 1.62 10*3/uL 1.32-3.29 = 731-0) MONO x10^3 (test code 0.42 10*3/uL 0.33-0.92 = 742-7) EOS x10^3 (test code = <0.03 0.03-0.39 L 711-2) BASO x10^3 (test code <0.03 0.01-0.07 = 704-7) Lab Interpretation Abnormal (test code = 73694-7) [id number] 17:11:20 Test Item Value Reference Range Interpretation Comments VIT D 25OH (test code = 26 ng/mL 25-80 18191-2) GYPSY (test code = GYPSY) Deficiency: <20 ng/mLInsufficiency : 20-24 ng/mLOptimal: 25-80 ng/mL Lab Interpretation (test Normal code = 90099-0) [facility], [id number] 17:11:20 Test Item Value Reference Range Interpretation Comments VIT D 25OH (test code = 57126-8) 26 ng/mL 25-80 GYPSY (test code = GYPSY) Lab Interpretation (test code = Normal 06677-8) [facility] [id number] 10:29:24 Test Item Value Reference Range Interpretation Comments NT-proBNP (test code 397 pg/mL See_Comment H [Autom ated = 8285055690) message] The system which generated this result transmitted reference range : <=125. The reference range was not used to interpret this result as normal/abnormal . GYPSY (test code = GYPSY) Biotin has been reported to cause a negative bias, interpret results relative to patient's use of biotin. Lab Interpretation Abnormal (test code = 83259-5) [facility] [id number] 10:29:24 Test Item Value Reference Range Interpretation Comments NT-proBNP (test code = 397 pg/mL See_Comment H [Aut omated message] 9954284779) The system MyVR generated this result transmit amanda reference range : <=125. The refe rence range was not u sed to interpret th is result as normal/abnormal . GYPSY (test code = GYPSY) Lab Interpretation (test Abnormal code = 13782-7) [facility]. METABOLIC PANEL ([id number])2020-11-09 10:23:04 Test Item Value Reference Range Interpretation Comments NA (test code = 140 mmol/L 135-145 3080728714) K (test code = 4.5 mmol/L 3.5-5.0 8651593222) CL (test code = 105 mmol/L 98-108 8758376173) CO2 TOTAL (test code = 33 mmol/L 23-31 H 5398238928) AGAP (test code = 2-16 7644244647) BUN (test code = 29 mg/dL 7-23 H 7880973793) GLUCOSE (test code = 122 mg/dL 70-110 H 3320259066) CREATININE (test code = 0.59 mg/dL 0.50-1.04 3195330946) TOTAL BILI (test code = 0.5 mg/dL 0.1-1.3 2035189245) CALCIUM (test code = 8.4 mg/dL 8.6-10.6 L 3641784834) T PROTEIN (test code = 6.1 g/dL 6.3-8.2 L 0837726920) ALBUMIN (test code = 3.2 g/dL 3.5-5.0 L 7197245779) ALK PHOS (test code = 80 U/L 34-122 8229300133) ALTv (test code = 89 U/L 5-35 H 1742-6) AST(SGOT) (test code = 105 U/L 13-40 H 1782934432) eGFR (test code = mL/min/1.73m2 0097557143) GYPSY (test code = GYPSY) Association of [...] tests). Lab Interpretation Abnormal (test code = 83485-4) [facility]. METABOLIC PANEL (03558)2020-11-09 10:23:04 Test Item Value Reference Range Interpretation Comments NA (test code = 7470903833) 140 mmol/L 135-145 K (test code = 1514879969) 4.5 mmol/L 3.5-5.0 CL (test code = 4899003618) 105 mmol/L 98-108 CO2 TOTAL (test code = 1617481997) 33 mmol/L 23-31 H AGAP (test code = 9128531550) 2-16 BUN (test code = 2354155847) 29 mg/dL 7-23 H GLUCOSE (test code = 7837046671) 122 mg/dL 70-110 H CREATININE (test code = 0.59 mg/dL 0.50-1.04 6901047672) TOTAL BILI (test code = 0.5 mg/dL 0.1-1.4 5324040602) CALCIUM (test code = 7837618618) 8.4 mg/dL 8.6-10.6 L T PROTEIN (test code = 2530322197) 6.1 g/dL 6.3-8.2 L ALBUMIN (test code = 4005573628) 3.2 g/dL 3.5-5.0 L ALK PHOS (test code = 2129268354) 80 U/L 34-122 ALTv (test code = 1742-6) 89 U/L 5-35 H AST(SGOT) (test code = 3564520625) 105 U/L 13-40 H eGFR (test code = 7447246904) mL/min/1.73m2 GYPSY (test code = GYPSY) Lab Interpretation (test code = Abnormal 53392-1) [id number]00 Test Item Value Reference Range Interpretation Comments NT-proBNP (test code 416 pg/mL See_Comment H [Autom ated = 0407075476) message] The system which generated this result transmitted reference range : <=125. The reference range was not used to interpret this result as normal/abnormal . GYPSY (test code = GYPSY) Biotin has been reported to cause a negative bias, interpret results relative to patient's use of biotin. Lab Interpretation Abnormal (test code = 49214-3) [id number] 11:17:00 Test Item Value Reference Range Interpretation Comments NT-proBNP (test code = 416 pg/mL See_Comment H [Aut omated message] 0131368007) The system My[employer] generated this result transmit aamnda reference range : <=125. The refe rence range was not u sed to interpret th is result as normal/abnormal . GYPSY (test code = GYPSY) Lab Interpretation (test Abnormal code = 22168-8) [facility] [id number]08 11:12:19 Test Item Value Reference Range Interpretation Comments NA (test code = 139 mmol/L 135-145 6110817394) K (test code = 4.2 mmol/L 3.5-5.0 9545724614) CL (test code = 103 mmol/L 98-108 4642937331) CO2 TOTAL (test code = 29 mmol/L 23-31 0121249594) AGAP (test code = 2-16 3002572962) BUN (test code = 34 mg/dL 7-23 H 2270484646) GLUCOSE (test code = 133 mg/dL 70-110 H 5267755350) CREATININE (test code = 0.82 mg/dL 0.50-1.04 7518581254) TOTAL BILI (test code = 0.5 mg/dL 0.1-1.1 7489215369) CALCIUM (test code = 8.6 mg/dL 8.6-10.6 5030846874) T PROTEIN (test code = 6.6 g/dL 6.3-8.2 6664870728) ALBUMIN (test code = 3.5 g/dL 3.5-5.0 5963530440) ALK PHOS (test code = 89 U/L 34-122 5780915363) ALTv (test code = 71 U/L 5-35 H 1742-6) AST(SGOT) (test code = 81 U/L 13-40 H 5040839799) eGFR (test code = mL/min/1.73m2 2163122733) GYPSY (test code = GYPSY) Association of [...] tests). Lab Interpretation Abnormal (test code = 18303-2) [facility][id number][facility]2020-11-08 11:12:19 Test Item Value Reference Range Interpretation Comments NA (test code = 1964424380) 139 mmol/L 135-145 K (test code = 1230008997) 4.2 mmol/L 3.5-5.0 CL (test code = 2958017212) 103 mmol/L 98-108 CO2 TOTAL (test code = 0996212095) 29 mmol/L 23-31 AGAP (test code = 4781155431) 2-16 BUN (test code = 9838513503) 34 mg/dL 7-23 H GLUCOSE (test code = 0732605357) 133 mg/dL 70-110 H CREATININE (test code = 0.82 mg/dL 0.50-1.04 4287363848) TOTAL BILI (test code = 0.5 mg/dL 0.1-1.5 0407589432) CALCIUM (test code = 7297700408) 8.6 mg/dL 8.6-10.6 T PROTEIN (test code = 1491321230) 6.6 g/dL 6.3-8.2 ALBUMIN (test code = 5355466342) 3.5 g/dL 3.5-5.0 ALK PHOS (test code = 7800112038) 89 U/L 34-122 ALTv (test code = 1742-6) 71 U/L 5-35 H AST(SGOT) (test code = 4628415420) 81 U/L 13-40 H eGFR (test code = 1341522253) mL/min/1.73m2 GYPSY (test code = GYPSY) Lab Interpretation (test code = Abnormal 51035-0) [facility] WITH [id number] 10:26:13 Test Item Value Reference Range Interpretation [...] RDW-SD (test code = 42.5 fL 39.0-49.9 28081-7) RDW-CV (test code = 12.6 % 12.0-15.5 788-0) PLT (test code = See_Comment [Automated 777-3) message] The sy stem which generated this result transmitted reference range : 166 - 358 10*3/ ?L. The reference r leann was not used to interpret this result as normal/abnormal . MPV (test code = 10.2 fL 9.5-12.9 15232-5) NRBC/100 WBC (test See_Comment [Automat ed code = 4160918626) message] The system which generated this result transmitted reference range : 0.0 - 10.0 /100 WBCs. The refer ence range was not u sed to interpret th is result as normal/abnormal . NRBC x10^3 (test code <0.01 See_Comment [Auto mated = 0597895269) message] The s ystem which generated this result transmitted reference range : 10*3/?L. The reference range was not used to interpret this result as normal/abnormal . GRAN MAT (NEUT) % 81.6 % (test code = 770-8) IMM GRAN % (test code 0.90 % = 8045641158) LYMPH % (test code = 13.9 % 736-9) MONO % (test code = 3.5 % 5905-5) EOS % (test code = 0.0 % 713-8) BASO % (test code = 0.1 % 706-2) GRAN MAT x10^3(ANC) 7.49 10*3/uL 1.88-7.09 H (test code = 7542912661) IMM GRAN x10^3 (test 0.08 10*3/uL 0.00-0.06 H code = 8572785777) LYMPH x10^3 (test code 1.28 10*3/uL 1.32-3.29 L = 731-0) MONO x10^3 (test code 0.32 10*3/uL 0.33-0.92 L = 742-7) EOS x10^3 (test code = <0.03 0.03-0.39 L 711-2) BASO x10^3 (test code <0.03 0.01-0.07 = 704-7) Lab Interpretation Abnormal (test code = 77369-6) [facility] WITH [id number] 10:26:13 Test Item Value Reference Range Interpretation [...] RDW-SD (test code = 42.5 fL 39.0-49.9 44926-2) RDW-CV (test code = 12.6 % 12.0-15.5 788-0) PLT (test code = See_Comment [Automated 777-3) message] The sy stem which generated this result transmitted reference range : 166 - 358 10*3/ ?L. The reference r leann was not used to interpret this result as normal/abnormal . MPV (test code = 10.2 fL 9.5-12.9 79358-1) NRBC/100 WBC (test See_Comment [Automat ed code = 8989131208) message] The system which generated this result transmitted reference range : 0.0 - 10.0 /100 WBCs. The refer ence range was not u sed to interpret th is result as normal/abnormal . NRBC x10^3 (test code <0.01 See_Comment [Auto mated = 9551053662) message] The s ystem which generated this result transmitted reference range : 10*3/?L. The reference range was not used to interpret this result as normal/abnormal . GRAN MAT (NEUT) % 81.6 % (test code = 770-8) IMM GRAN % (test code 0.90 % = 7262576739) LYMPH % (test code = 13.9 % 736-9) MONO % (test code = 3.5 % 5905-5) EOS % (test code = 0.0 % 713-8) BASO % (test code = 0.1 % 706-2) GRAN MAT x10^3(ANC) 7.49 10*3/uL 1.88-7.09 H (test code = 3856193385) IMM GRAN x10^3 (test 0.08 10*3/uL 0.00-0.06 H code = 8084072382) LYMPH x10^3 (test code 1.28 10*3/uL 1.32-3.29 L = 731-0) MONO x10^3 (test code 0.32 10*3/uL 0.33-0.92 L = 742-7) EOS x10^3 (test code = <0.03 0.03-0.39 L 711-2) BASO x10^3 (test code <0.03 0.01-0.07 = 704-7) Lab Interpretation Abnormal (test code = 47026-1) [facility] V[facility] BLO[facility] [id number] 10:18:08 Test Item Value Reference Range Interpretation Comments PH (test code = 7.32-7.42 2003185083) PCO2 CHICHI (test code = See_Comment [Auto mated message] The 1553165775) system which ge nerated this result transmit amanda reference range : 41 - 51 mmHg. The refer ence range was not used to interpret this result as normal/abnormal . PO2 CHICHI (test code = See_Comment [Autom ated message] The 9990018851) system which ge nerated this result transmit amanda reference range : 25 - 40 mmHg. The refer ence range was not used to interpret this result as normal/abnormal . HCO3 CHICHI (test code = See_Comment [Auto mated message] The 8090135868) system which ge nerated this result transmit amanda reference range : 24 - 28 mEq/L. The refe rence range was not used to interpret this result as normal/abnormal . AC VBE(BEAKER) (test mEq/L code = 5309527120) [facility] [id number] 10:18:08 Test Item Value Reference Range Interpretation Comments PH (test code = 7.32-7.42 9110031830) PCO2 CHICHI (test code = See_Comment [Auto mated message] The 4392360441) system which ge nerated this result transmit amanda reference range : 41 - 51 mmHg. The refer ence range was not used to interpret this result as normal/abnormal . PO2 CHICHI (test code = See_Comment [Autom ated message] The 5851013735) system which ge nerated this result transmit amanda reference range : 25 - 40 mmHg. The refer ence range was not used to interpret this result as normal/abnormal . HCO3 CHICHI (test code = See_Comment [Auto mated message] The 6393616696) system which ge nerated this result transmit amanda reference range : 24 - 28 mEq/L. The refe rence range was not used to interpret this result as normal/abnormal . AC VBE(BEAKER) (test mEq/L code = 1179979056) [facility] [id number] 18:55:34 Test Item Value Reference Range Interpretation Comments CRP (test code = 7211100516) 9.0 mg/dL <0.8 H Lab Interpretation (test code = Abnormal 58952-9) [facility] [id number] 18:55:34 Test Item Value Reference Range Interpretation Comments CRP (test code = 9951764046) 9.0 mg/dL <0.8 H Lab Interpretation (test code = Abnormal 84679-4) [facility] [id number] 17:19:38 Test Item Value Reference Range Interpretation Comments TSH (test code = See_Comment [Automated message] 6873531653) The system MyVR generated this result transmitted ref erence range: 0.45 - 4 .70 mIU/L. The refe rence range was not u sed to interpret this result as normal/abnor mal. Lab Interpretation (test Normal code = 12979-2) [facility] [id number] 17:19:38 Test Item Value Reference Range Interpretation Comments TSH (test code = See_Comment [Automated message] 1245534346) The system MyVR generated this result transmitted ref erence range: 0.45 - 4 .70 mIU/L. The refe rence range was not u sed to interpret this result as normal/abnor mal. Lab Interpretation (test Normal code = 48575-6) [facility]TROPONIN [id number] 17:01:36 Test Item Value Reference Interpretation Comments Range TROPONIN I (test 0.002 ng/mL See_Comment [Automated code = 3685088990) message] The system which generated this result [...] biotin. Lab Interpretation Normal (test code = 43879-7) [facility] [id number] 17:01:36 Test Item Value Reference Range Interpretation Comments TROPONIN I (test code = 0.002 ng/mL See_Comment [Au tomated 3682327584) message] The sy stem which generated this result transmitted reference range : <=0.034. The reference range was not used to interpret this result as normal/abnormal . GYPSY (test code = GYPSY) Lab Interpretation Normal (test code = 57981-7) [facility]CREATINE [id number] 16:57:57 Test Item Value Reference Range Interpretation Comments CK (test code = 7555712566) 58 U/L 33-194 Lab Interpretation (test code = Normal 81032-2) [facility]URIC [id number] 16:57:57 Test Item Value Reference Range Interpretation Comments URIC ACID (test code = 3034951844) 6.2 mg/dL 2.9-6.0 H Lab Interpretation (test code = Abnormal 82520-4) [facility] (20625)2020-11-07 16:57:57 Test Item Value Reference Range Interpretation Comments NA (test code = 139 mmol/L 135-145 5811133246) K (test code = 4.0 mmol/L 3.5-5.0 9127027337) CL (test code = 100 mmol/L 98-108 1678133889) CO2 TOTAL (test code = 31 mmol/L 23-31 2486856142) AGAP (test code = 2-16 5578817601) BUN (test code = 22 mg/dL 7-23 6735559825) GLUCOSE (test code = 127 mg/dL 70-110 H 4892394708) CREATININE (test code = 0.71 mg/dL 0.50-1.04 7316357769) TOTAL BILI (test code = 0.5 mg/dL 0.1-1.8 0062239325) CALCIUM (test code = 9.0 mg/dL 8.6-10.6 6761063499) T PROTEIN (test code = 7.1 g/dL 6.3-8.2 2735900745) ALBUMIN (test code = 3.7 g/dL 3.5-5.0 6271274625) ALK PHOS (test code = 122 U/L 34-122 6384222846) ALTv (test code = 85 U/L 5-35 H 2-6) AST(SGOT) (test code = 86 U/L 13-40 H 9865612231) eGFR (test code = mL/min/1.73m2 3443960054) GYPSY (test code = GYPSY) Association of [...] tests). Lab Interpretation Abnormal (test code = 49819-0) [facility]IUM2021-[facility]-14 16:57:57 Test Item Value Reference Range Interpretation Comments MAGNESIUM (test code = 6810574016) 2.1 mg/dL 1.7-2.4 Lab Interpretation (test code = Normal 05840-3) [facility]AL [id number] 16:57:57 Test Item Value Reference Range Interpretation Comments NT-proBNP (test code 334 pg/mL See_Comment H [Autom ated = 2504324356) message] The system which generated this result transmitted reference range : <=125. The reference range was not used to interpret this result as normal/abnormal . GYPSY (test code = GYPSY) Biotin has been reported to cause a negative bias, interpret results relative to patient's use of biotin. Lab Interpretation Abnormal (test code = 02188-4) [facility]PHOSPHORUS2021-08-14 16:57:57 Test Item Value Reference Range Interpretation Comments PHOSPHORUS (test code = 9505177073) 4.0 mg/dL 2.5-5.0 Lab Interpretation (test code = Normal 21356-2) [facility]CREATINE [id number] 16:57:57 Test Item Value Reference Range Interpretation Comments CK (test code = 5070289437) 58 U/L 33-194 Lab Interpretation (test code = Normal 63692-1) [facility] [id number] 16:57:57 Test Item Value Reference Range Interpretation Comments URIC ACID (test code = 5533995258) 6.2 mg/dL 2.9-6.0 H Lab Interpretation (test code = Abnormal 29526-3) [facility] (63181)2020-11-07 16:57:57 Test Item Value Reference Range Interpretation Comments NA (test code = 7810835915) 139 mmol/L 135-145 K (test code = 4363959568) 4.0 mmol/L 3.5-5.0 CL (test code = 0135489643) 100 mmol/L 98-108 CO2 TOTAL (test code = 5293276367) 31 mmol/L 23-31 AGAP (test code = 8239334799) 2-16 BUN (test code = 3478013431) 22 mg/dL 7-23 GLUCOSE (test code = 9374261710) 127 mg/dL 70-110 H CREATININE (test code = 0.71 mg/dL 0.50-1.04 6578437194) TOTAL BILI (test code = 0.5 mg/dL 0.1-1.7 8851448097) CALCIUM (test code = 5970404014) 9.0 mg/dL 8.6-10.6 T PROTEIN (test code = 4639243564) 7.1 g/dL 6.3-8.2 ALBUMIN (test code = 9001322907) 3.7 g/dL 3.5-5.0 ALK PHOS (test code = 3335137835) 122 U/L 34-122 ALTv (test code = 1742-6) 85 U/L 5-35 H AST(SGOT) (test code = 2456354878) 86 U/L 13-40 H eGFR (test code = 1757315870) mL/min/1.73m2 GYPSY (test code = GYPSY) Lab Interpretation (test code = Abnormal 21992-7) [facility]2021-[facility]-14 16:57:57 Test Item Value Reference Range Interpretation Comments MAGNESIUM (test code = 1268556624) 2.1 mg/dL 1.7-2.4 Lab Interpretation (test code = Normal 58374-0) [facility] [id number] 16:57:57 Test Item Value Reference Range Interpretation Comments NT-proBNP (test code = 334 pg/mL See_Comment H [Aut omated message] 8363271920) The system MyVR generated this result transmit amanda reference range : <=125. The refe rence range was not u sed to interpret th is result as normal/abnormal . GYPSY (test code = GYPSY) Lab Interpretation (test Abnormal code = 63127-7) [facility]PH[facility]US2021-[facility]-14 16:57:57 Test Item Value Reference Range Interpretation Comments PHOSPHORUS (test code = 6201278439) 4.0 mg/dL 2.5-5.0 Lab Interpretation (test code = Normal 49204-4) [facility] HospitalLIPID PANEL (27994)(TOTAL CHOLESTEROL, TRIGLYCERIDES, HDL)2020-11-07 16:47:56 Test Item Value Reference Range Interpretation Comments CHOL (test code = 109 mg/dL 120-200 L 9829745444) HDL (test code = 34 mg/dL >50 L 6330631637) HDLC RATIO (test code = See_Comment [Au tomated message] 3466341604) The system MyVR generated this result transmit amanda reference range : <=4.5. The refe rence range was not u sed to interpret th is result as normal/abnormal . TRIG (test code = 127 mg/dL 30-170 3654915767) LDL CHOL (test code = 50 mg/dL See_Comment [Auto mated message] 33438-7) The system MyVR generated this result transmit amanda reference range : <=160. The refe rence range was not u sed to interpret th is result as normal/abnormal . VLDL (test code = 25 mg/dL 5-60 2094616170) Lab Interpretation (test Abnormal code = 56952-6) [facility] HospitalLIPID PANEL (04531)(TOTAL CHOLESTEROL, TRIGLYCERIDES, HDL)2020-11-07 16:47:56 Test Item Value Reference Range Interpretation Comments CHOL (test code = 109 mg/dL 120-200 L 6769290075) HDL (test code = 34 mg/dL >50 L 4272286893) HDLC RATIO (test code = See_Comment [Au tomated message] 5399910772) The system MyVR generated this result transmit amanda reference range : <=4.5. The refe rence range was not u sed to interpret th is result as normal/abnormal . TRIG (test code = 127 mg/dL 30-170 0607489865) LDL CHOL (test code = 50 mg/dL See_Comment [Auto mated message] 21266-7) The system MyVR generated this result transmit amanda reference range : <=160. The refe rence range was not u sed to interpret th is result as normal/abnormal . VLDL (test code = 25 mg/dL 5-60 6455195858) Lab Interpretation (test Abnormal code = 23947-0) [facility] HospitalGlycosylated Hemoglobin (A1C)2020-11-07 16:22:39 Test Item Value Reference Range Interpretation Comments HGB A1C (test code = 5.7 % 4.0-5.7 4548-4) GYPSY (test code = GYPSY) Reference RangesNormal: <5.7%Prediabetes: 5.7 - 6.4%Diabetes: > 6.5% Lab Interpretation (test Normal code = 56278-3) [facility] HospitalGlycosylated Hemoglobin (A1C)2020-11-07 16:22:39 Test Item Value Reference Range Interpretation Comments HGB A1C (test code = 4548-4) 5.7 % 4.0-5.7 GYPSY (test code = GYPSY) Lab Interpretation (test code = Normal 99095-4) [facility] WITH [id number] 15:55:16 Test Item Value Reference Range Interpretation [...] RDW-SD (test code = 42.6 fL 39.0-49.9 22929-9) RDW-CV (test code = 12.6 % 12.0-15.5 788-0) PLT (test code = See_Comment [Automated 777-3) message] The sy stem which generated this result transmitted reference range : 166 - 358 10*3/ ?L. The reference r leann was not used to interpret this result as normal/abnormal . MPV (test code = 10.2 fL 9.5-12.9 22415-3) NRBC/100 WBC (test See_Comment [Automat ed code = 4101606320) message] The system which generated this result transmitted reference range : 0.0 - 10.0 /100 WBCs. The refer ence range was not u sed to interpret th is result as normal/abnormal . NRBC x10^3 (test code <0.01 See_Comment [Auto mated = 6352245911) message] The s ystem which generated this result transmitted reference range : 10*3/?L. The reference range was not used to interpret this result as normal/abnormal . GRAN MAT (NEUT) % 85.5 % (test code = 770-8) IMM GRAN % (test code 0.50 % = 8097464993) LYMPH % (test code = 11.1 % 736-9) MONO % (test code = 2.8 % 5905-5) EOS % (test code = 0.0 % 713-8) BASO % (test code = 0.1 % 706-2) GRAN MAT x10^3(ANC) 7.92 10*3/uL 1.88-7.09 H (test code = 6912999052) IMM GRAN x10^3 (test 0.05 10*3/uL 0.00-0.06 code = 9573319579) LYMPH x10^3 (test code 1.03 10*3/uL 1.32-3.29 L = 731-0) MONO x10^3 (test code 0.26 10*3/uL 0.33-0.92 L = 742-7) EOS x10^3 (test code = <0.03 0.03-0.39 L 711-2) BASO x10^3 (test code <0.03 0.01-0.07 = 704-7) Lab Interpretation Abnormal (test code = 39259-3) [facility] WITH [id number] 15:55:16 Test Item Value Reference Range Interpretation Comments WBC (test code = See_Comment [Automated 3590-2) message] The sy stem which generated this result transmitted reference range : 4.30 - 11.10 10*3/?L. The reference range was not used to interpret this result as normal/abnormal . RBC (test code = See_Comment [Automated 239-8) message] The sy stem which generated this [...] RDW-SD (test code = 42.6 fL 39.0-49.9 47290-4) RDW-CV (test code = 12.6 % 12.0-15.5 788-0) PLT (test code = See_Comment [Automated 777-3) message] The sy stem which generated this result transmitted reference range : 166 - 358 10*3/ ?L. The reference r leann was not used to interpret this result as normal/abnormal . MPV (test code = 10.2 fL 9.5-12.9 26196-1) NRBC/100 WBC (test See_Comment [Automat ed code = 7510016047) message] The system which generated this result transmitted reference range : 0.0 - 10.0 /100 WBCs. The refer ence range was not u sed to interpret th is result as normal/abnormal . NRBC x10^3 (test code <0.01 See_Comment [Auto mated = 0836568035) message] The s ystem which generated this result transmitted reference range : 10*3/?L. The reference range was not used to interpret this result as normal/abnormal . GRAN MAT (NEUT) % 85.5 % (test code = 770-8) IMM GRAN % (test code 0.50 % = 0825397978) LYMPH % (test code = 11.1 % 736-9) MONO % (test code = 2.8 % 5905-5) EOS % (test code = 0.0 % 713-8) BASO % (test code = 0.1 % 706-2) GRAN MAT x10^3(ANC) 7.92 10*3/uL 1.88-7.09 H (test code = 3250045502) IMM GRAN x10^3 (test 0.05 10*3/uL 0.00-0.06 code = 0184415732) LYMPH x10^3 (test code 1.03 10*3/uL 1.32-3.29 L = 731-0) MONO x10^3 (test code 0.26 10*3/uL 0.33-0.92 L = 742-7) EOS x10^3 (test code = <0.03 0.03-0.39 L 711-2) BASO x10^3 (test code <0.03 0.01-0.07 = 704-7) Lab Interpretation Abnormal (test code = 23083-4) [facility] VENOUS BLOOD [id number] 15:52:56 Test Item Value Reference Range Interpretation Comments PH (test code = 7.32-7.42 8148690879) PCO2 CHICHI (test code = See_Comment H [Auto mated message] 1010202068) The system MyVR generated this result transmitted ref erence range: 41 - 51 mmHg. The reference r leann was not used to interpret this result as normal/abnor mal. PO2 CHICHI (test code = See_Comment [Autom ated message] 4234497835) The system MyVR generated this result transmitted ref erence range: 25 - 40 mmHg. The reference r leann was not used to interpret this result as normal/abnor mal. HCO3 CHICHI (test code = See_Comment [Auto mated message] 8819983509) The system MyVR generated this result transmitted ref erence range: 24 - 28 mEq/L. The reference r leann was not used to interpret this result as normal/abnor mal. AC VBE(BEAKER) (test mEq/L code = 6993499917) Lab Interpretation (test Abnormal code = 81449-9) [facility] VENOUS BLOOD [id number] 15:52:56 Test Item Value Reference Range Interpretation Comments PH (test code = 7.32-7.42 3063237248) PCO2 CHICHI (test code = See_Comment H [Auto mated message] 7621947040) The system MyVR generated this result transmitted ref erence range: 41 - 51 mmHg. The reference r leann was not used to interpret this result as normal/abnor mal. PO2 CHICHI (test code = See_Comment [Autom ated message] 4748323459) The system MyVR generated this result transmitted ref erence range: 25 - 40 mmHg. The reference r leann was not used to interpret this result as normal/abnor mal. HCO3 CHICHI (test code = See_Comment [Auto mated message] 6633609216) The system MyVR generated this result transmitted ref erence range: 24 - 28 mEq/L. The reference r leann was not used to interpret this result as normal/abnor mal. AC VBE(BEAKER) (test mEq/L code = 2661119491) Lab Interpretation (test Abnormal code = 71253-9) [facility], [id number] 11:01:44 Test Item Value Reference Range Interpretation Comments VIT B12 (test code = >1000 240-930 H 8674113665) GYPSY (test code = GYPSY) Biotin has been reported to cause a positive bias, interpret results relative to patient's use of biotin. Lab Interpretation (test Abnormal code = 51828-5) [facility] B12, [id number] 11:01:44 Test Item Value Reference Range Interpretation Comments VIT B12 (test code = 9835276573) >1000 240-930 H GYPSY (test code = GYPSY) Lab Interpretation (test code = Abnormal 40577-6) [facility]PROCALCITONIN2021-[facility]-14 03:41:00 Test Item Value Reference Range Interpretation Comments Procalcitonin (test 0.10 ng/mL <0.07 H code = 9286689559) GYPSY (test code = GYPSY) INTERPRETATION OF [...] lung abscess/empyema. For further information please refer to:[email or web address] Lab Interpretation Abnormal (test code = 92775-9) [facility]2021-[facility]-14 03:41:00 Test Item Value Reference Range Interpretation Comments Procalcitonin (test code = 0.10 ng/mL <0.07 H 5664500760) GYPSY (test code = GYPSY) Lab Interpretation (test code = Abnormal 39126-1) [facility]20[facility]-14 00:31:25 Test Item Value Reference Range Interpretation Comments APPEARANCE (test code = Clear Clear 9161699052) COLOR (test code = Yellow Yellow 1070300813) PH (test code = 4.8-8.0 2634207794) SP GRAVITY (test code = >1.050 1.003-1.035 H 0363654948) GLU U QUAL (test code = Normal Normal 5775445477) BLOOD (test code = Negative Negative 9412649712) KETONES (test code = 5 mg/dL Negative A 6699638475) PROTEIN (test code = 30 mg/dL Negative A 2887-8) UROBILIN (test code = Normal Normal 2362714975) BILIRUBIN (test code = Negative Negative 8383442484) NITRITE (test code = Negative Negative 1976437910) LEUK VANNESSA (test code = Negative Negative 4171938951) RBC/HPF (test code = See_Comment [Autom ated message] 5580124860) The system MyVR generated this result transmitted ref erence range: 0 - 3 HP F. The reference range was not used to int erpret this result as normal/abnormal . WBC/HPF (test code = See_Comment [Autom ated message] 8089280179) The system MyVR generated this result transmitted ref erence range: 0 - 5 HP F. The reference range was not used to int erpret this result as normal/abnormal . BACTERIA (test code = Negative Negative 4171336284) MUCOUS (test code = Slight Negative LPF A 4129842167) SQ EPITH (test code = HPF 2759202057) Lab Interpretation (test Abnormal code = 49352-6) [facility]31:25 Test Item Value Reference Range Interpretation Comments APPEARANCE (test code = Clear Clear 8773429406) COLOR (test code = Yellow Yellow 7080799127) PH (test code = 4.8-8.0 2829183501) SP GRAVITY (test code = >1.050 1.003-1.035 H 2390417362) GLU U QUAL (test code = Normal Normal 1269362223) BLOOD (test code = Negative Negative 8159879302) KETONES (test code = 5 mg/dL Negative A 0714392348) PROTEIN (test code = 30 mg/dL Negative A 2887-8) UROBILIN (test code = Normal Normal 8216945396) BILIRUBIN (test code = Negative Negative 6093100349) NITRITE (test code = Negative Negative 8790699641) LEUK VANNESSA (test code = Negative Negative 6291384723) RBC/HPF (test code = See_Comment [Autom ated message] 0573271035) The system MyVR generated this result transmitted ref erence range: 0 - 3 HP F. The reference range was not used to int erpret this result as normal/abnormal . WBC/HPF (test code = See_Comment [Autom ated message] 2896460012) The system MyVR generated this result transmitted ref erence range: 0 - 5 HP F. The reference range was not used to int erpret this result as normal/abnormal . BACTERIA (test code = Negative Negative 6984273231) MUCOUS (test code = Slight Negative LPF A 6423148325) SQ EPITH (test code = HPF 4832152797) Lab Interpretation (test Abnormal code = 69702-2) [facility] [id number] 23:15:49 1. ?No pulmonary emboli. 2. ?Moderate burden of multifocal opacities associated with confirmedCOVID-19 pneumonia. 3. ?Pulmonary trunk dilatation can be seen with pulmonary hypertension. Preliminary Report Dictated by Resident: Bola Ramirez MD., have reviewed this study and agree with theabove report.PROCEDURE: CT CHEST WITH CONTRAST- CHEST PE PROTOCOL CLINICAL INDICATION: 55 years-old Female; PE suspected, high pretest prob ."Arrived to ED from [facility] infusion clinic. RN reports they were [...] disc osteophyte complexes. The softtissues appear normal. [facility], Radiant Results Inft User - 11/06/2020 6:16 PM CDT PROCEDURE: CT CHEST WITH CONTRAST- CHEST PE PROTOCOLCLINICAL INDICATION: 55 years-old Female; PE suspected, high pretest prob ."Arrived to ED from [facility] infusion clinic. RN reports they were [...] reviewed this study and agree with theabove report.[facility] [id number] 23:15:49 1. ?No pulmonary emboli. 2. ?Moderate burden of multifocal opacities associated with confirmedCOVID-19 pneumonia. 3. ?Pulmonary trunk dilatation can be seen with pulmonary hypertension. Preliminary Report Dictated by Resident: Bola Ramirez MD., have reviewed this study and agree with theabove report.PROCEDURE: CT CHEST WITH CONTRAST- CHEST PE PROTOCOL CLINICAL INDICATION: 55 years-old Female; PE suspected, high pretest prob ."Arrived to ED from [facility] infusion clinic. RN reports they were [...] disc osteophyte complexes. The softtissues appear normal. [facility], Radiant Results Inft User - 11/06/2020 6:16 PM CDT PROCEDURE: CT CHEST WITH CONTRAST- CHEST PE PROTOCOLCLINICAL INDICATION: 55 years-old Female; PE suspected, high pretest prob ."Arrived to ED from [facility] infusion [facility]. RN reports they were getting VSand noted [...] reviewed this study and agree with theabove report.[facility] WITH [id number] 22:14:34 Test Item Value Reference Range Interpretation Comments WBC (test code = See_Comment [Automated 7390-2) message] The sy stem which generated this [...] RDW-SD (test code = 43.2 fL 39.0-49.9 79373-8) RDW-CV (test code = 12.9 % 12.0-15.5 788-0) PLT (test code = See_Comment [Automated 777-3) message] The sy stem which generated this result transmitted reference range : 166 - 358 10*3/ ?L. The reference r leann was not used to interpret this result as normal/abnormal . MPV (test code = 10.1 fL 9.5-12.9 89296-4) NRBC/100 WBC (test See_Comment [Automat ed code = 7055708466) message] The system which generated this result transmitted reference range : 0.0 - 10.0 /100 WBCs. The refer ence range was not u sed to interpret th is result as normal/abnormal . NRBC x10^3 (test code <0.01 See_Comment [Auto mated = 7715199333) message] The s ystem which generated this result transmitted reference range : 10*3/?L. The reference range was not used to interpret this result as normal/abnormal . SEG % (test code = 60 % 33-76 45824-8) BAND % (test code = 4 % 0-1 H 72176-8) LYMPH % (test code = 30 % 14-54 51280-7) MONO % (test code = 6 % 0-4 H 69141-6) ANC (test code = 2.79 10*3/uL 1.88-7.09 753-4) Lab Interpretation Abnormal (test code = 66552-9) [facility] WITH [id number] 22:14:34 Test Item Value Reference Range Interpretation [...] RDW-SD (test code = 43.2 fL 39.0-49.9 64459-4) RDW-CV (test code = 12.9 % 12.0-15.5 788-0) PLT (test code = See_Comment [Automated 777-3) message] The sy stem which generated this result transmitted reference range : 166 - 358 10*3/ ?L. The reference r leann was not used to interpret this result as normal/abnormal . MPV (test code = 10.1 fL 9.5-12.9 48127-5) NRBC/100 WBC (test See_Comment [Automat ed code = 2373915292) message] The system which generated this result transmitted reference range : 0.0 - 10.0 /100 WBCs. The refer ence range was not u sed to interpret th is result as normal/abnormal . NRBC x10^3 (test code <0.01 See_Comment [Auto mated = 7147512572) message] The s ystem which generated this result transmitted reference range : 10*3/?L. The reference range was not used to interpret this result as normal/abnormal . SEG % (test code = 60 % 33-76 82609-3) BAND % (test code = 4 % 0-1 H 27050-1) LYMPH % (test code = 30 % 14-54 12200-9) MONO % (test code = 6 % 0-4 H 89182-2) ANC (test code = 2.79 10*3/uL 1.88-7.09 753-4) Lab Interpretation Abnormal (test code = 33564-0) [facility] [id number] 22:05:27 Test Item Value Reference Interpretation Comments Range TROPONIN I (test 0.012 ng/mL See_Comment [Automated code = 3233520895) message] The system which generated this result [...] biotin. Lab Interpretation Normal (test code = 53939-9) [facility] [id number] 22:05:27 Test Item Value Reference Range Interpretation Comments TROPONIN I (test code = 0.012 ng/mL See_Comment [Au tomated 3620428526) message] The sy stem which generated this result transmitted reference range : <=0.034. The reference range was not used to interpret this result as normal/abnormal . GYPSY (test code = GYPSY) Lab Interpretation Normal (test code = 67099-4) [facility] [id number] 22:02:04 Test Item Value Reference Range Interpretation Comments NT-proBNP (test code 295 pg/mL See_Comment H [Autom ated = 3046224332) message] The system which generated this result transmitted reference range : <=125. The reference range was not used to interpret this result as normal/abnormal . GYPSY (test code = GYPSY) Biotin has been reported to cause a negative bias, interpret results relative to patient's use of biotin. Lab Interpretation Abnormal (test code = 33850-1) [facility] [id number] 22:02:04 Test Item Value Reference Range Interpretation Comments NT-proBNP (test code = 295 pg/mL See_Comment H [Aut omated message] 9605722551) The system [employer] generated this result transmit amanda reference range : <=125. The refe rence range was not u sed to interpret th is result as normal/abnormal . GYPSY (test code = GYPSY) Lab Interpretation (test Abnormal code = 68135-3) [facility]. METABOLIC PANEL (47312)2020-11-06 21:53:45 Test Item Value Reference Range Interpretation Comments NA (test code = 136 mmol/L 135-145 9072601765) K (test code = 3.8 mmol/L 3.5-5.0 0663535413) CL (test code = 98 mmol/L 98-108 6125960536) CO2 TOTAL (test code = 30 mmol/L 23-31 8451951116) AGAP (test code = 2-16 1317713573) BUN (test code = 12 mg/dL 7-23 1385771316) GLUCOSE (test code = 112 mg/dL 70-110 H 2015849425) CREATININE (test code = 0.66 mg/dL 0.50-1.04 3470326399) TOTAL BILI (test code = 0.5 mg/dL 0.1-1.2 3270223944) CALCIUM (test code = 8.8 mg/dL 8.6-10.6 4070706014) T PROTEIN (test code = 7.3 g/dL 6.3-8.2 6078958280) ALBUMIN (test code = 4.0 g/dL 3.5-5.0 8372966783) ALK PHOS (test code = 143 U/L 34-122 H 2509570995) ALTv (test code = 99 U/L 5-35 H 1742-6) AST(SGOT) (test code = 116 U/L 13-40 H 4049476312) eGFR (test code = mL/min/1.73m2 6018638268) GYPSY (test code = GYPSY) Association of [...] tests). Lab Interpretation Abnormal (test code = 62347-4) [facility] METABOLIC PANEL (10710)2020-11-06 21:53:45 Test Item Value Reference Range Interpretation Comments NA (test code = 1745158313) 136 mmol/L 135-145 K (test code = 3290088824) 3.8 mmol/L 3.5-5.0 CL (test code = 9969878822) 98 mmol/L 98-108 CO2 TOTAL (test code = 5899254753) 30 mmol/L 23-31 AGAP (test code = 4906359832) 2-16 BUN (test code = 8513809967) 12 mg/dL 7-23 GLUCOSE (test code = 7222374851) 112 mg/dL 70-110 H CREATININE (test code = 0.66 mg/dL 0.50-1.04 9534965274) TOTAL BILI (test code = 0.5 mg/dL 0.1-1.2 9327310347) CALCIUM (test code = 0886335165) 8.8 mg/dL 8.6-10.6 T PROTEIN (test code = 3996469203) 7.3 g/dL 6.3-8.2 ALBUMIN (test code = 1692839682) 4.0 g/dL 3.5-5.0 ALK PHOS (test code = 8746324243) 143 U/L 34-122 H ALTv (test code = 1742-6) 99 U/L 5-35 H AST(SGOT) (test code = 7269556775) 116 U/L 13-40 H eGFR (test code = 6421166003) mL/min/1.73m2 GYPSY (test code = GYPSY) Lab Interpretation (test code = Abnormal 34878-5) [facility]-[id number] 21:47:17 Test Item Value Reference Interpretation Comments Range D-DIMER (test code = See_Comment H [Autom ated 1984197571) message] The system which generated this result [...] diagnosis. Lab Interpretation Abnormal (test code = 08767-4) [facility]-[id number] 21:47:17 Test Item Value Reference Range Interpretation Comments D-DIMER (test code = See_Comment H [Autom ated message] 5011917642) The system MyVR generated this result transmitted ref erence range: <0.41 ?g /mL (FEU). The refe rence range was not u sed to interpret this result as normal/abnor mal. GYPSY (test code = GYPSY) Lab Interpretation (test Abnormal code = 30975-4) [facility]2019-12-23 11:14:00 RUN DATE: 03/18/19 [facility] - LAB PAGE 1 RUN TIME: 1114 Specimen Inquiry RUN USER: INTERFACE ----- -------PATIENT: MAURILIO GORDON LOC: YANIRA Mathews #: [id number] AGE/SX: 53/F ROOM: [facility] RE03/13/19REG DR: Jessica Kumar : 65 BED: 1 DIS: 03/15/19 STATUS: DIS IN TLOC: SPEC #: [id number]:[id number] RECD: 03/14/19 STATUS: WAYNE REQ #: [id number] FABI: 03/13/[address]: Jessica Kumar MDENTERED: 03/14/19 SP TYPE: SURG OTHR DR: ORDERED: SURG PATH LVL 5 HISTOLOGY: TISSUE ID BLK PCS LORA LEV PROCEDURE DISPOSITION ____ ___ ___ ___ CERVIX A 1 1 PROCEDURES: SURG PATH LVL 5 (03/14/191509) TISSUES: A. CERVIX - CERVIX, UTERUS, BILATERAL FALLOPIAN TUBES BILATERAL OVARIES CLINICAL HISTORY EXCESSIVE/FREQ/IRREG MENSES-N92.1; LEIOMYOMA-D25.1 CPT CODES CPT CODE(S): 17279 , , , , , , FINAL DIAGNOSIS Uterus, bilateral fallopian tubes and ovaries, hysterectomy and bilateral salpingo-oophorectomy: ECTOCERVIX, NEGATIVE FOR VIRAL CYTOPATHIC EFFECT ENDOCERVIX WITH CHRONIC INFLAMMATION ENDOMETRIUM, INACTIVE AND ULCERATED MULTIPLE INTRAMURAL ANDSUBSEROSAL LEIOMYOMATA FALLOPIAN TUBE WITH SIMPLE PARATUBAL CYST BILATERAL OVARIES WITH FOLLICULAR CYSTS, ONE WITH AN OVARIAN LEIOMYOMA NEGATIVE FOR MALIGNANCY GROSS DESCRIPTION Cervix, uterus, bilateral fallopian tubes and bilateral ovaries. Received in formalin is a 737.7-gram hysterectomy specimenand include a detached cervix (3.7 x 2.5 [...] CONTINUED ON NEXT PAGE RUN DATE: 03/18/19 [facility] PAGE 2 RUN TIME: 1114 Specimen Inquiry RUN USER: INTERFACE SPEC #: [facility]:[id number] PATIENT: MAURILIO GORDON #[id number] (Continued) GROSS DESCRIPTION (Continued) amputated cervix has a chin exocervix and a pinpoint os, 0.2 cm. The uterine corpus is markedly enlarged and distorted. The endometrial cavity measures 2.5 cm from cornu to cornu by 5.0 cm in length with a slightly hemorrhagic endometrium, 0.2 cm. Themyometrium is maximally 5.0 cm in thickness and contains approximately 10-15 intramural and subserosal nodules, the largest measures 4.5 cm in greatest dimension. Except for a few nodules with focal areas with slightly gritty cut-surfaces, the majority of the nodules have homogeneous dense chin fibrouscut surfaces with the whorled appearance and without hemorrhage or necrosis. The separate large nodul e/fibroid is serially sectioned and the cut surface [...] A21-A22 Longer fallopian tube and fimbria A23-A24 Kasson fallopian tube and fimbria A25-A26 Larger ovary A27-A28 Smaller ovary Grossing performed at [facility] Pathology, [address], [address], [place], [place] [address]. Co Teacher: Lane Matson M.D. MICROSCOPIC DESCRIPTION Cervix, uterus, bilateral fallopiantubes and bilateral ovaries. Sections demonstrate unremarkable ectocervix with no evidence of viral cytopathic effect. Chronic inflammation involves the endocervical glands. The endometrium is focally ulcerated with inactive endometrial glands. Multiple intramural leiomyomata are identified, some withancient change, hyalinization, and calcification. Bilateral fallopian tubes have unremarkable fimbria and CONTINUED ON NEXT PAGE RUN DATE: 03/18/19 [facility] PAGE 3 RUN TIME: 1114 Specimen Inquiry RUN USER: INTERFACE SPEC #: [facility]:[id number] PATIENT: HEIDI,MAURILIO #[id number] (Continued) -- MICROSCOPIC DESCRIPTION (Continued) lumina. A simple paratubal cyst is identified on one tube. Both ovaries demonstrate follicular cysts, one ovary demonstrates an ovarian leiomyoma. There is no evidence of malignancy. / cm Signed SIGNATURE ON FILE Ruddy Mosley 03/18/19 1114 END OF REPORT GLUCOSE BEDSIDE [id number] 17:10:00 Test Item Value Reference Range Interpretation Comments GLUCOSE BEDSIDE TESTING (test code 117 mg/dL 70-110 H = GLUBED) GLUCOSE BEDSIDE [id number] 07:15:00 Test Item Value Reference Range Interpretation Comments GLUCOSE BEDSIDE TESTING (test code 136 mg/dL 70-110 H = GLUBED) GLUCOSE BEDSIDE [id number] 00:32:00 Test Item Value Reference Range Interpretation Comments GLUCOSE BEDSIDE TESTING (test code 125 mg/dL 70-110 H = GLUBED) GLUCOSE BEDSIDE [id number] 16:30:00 Test Item Value Reference Range Interpretation Comments GLUCOSE BEDSIDE TESTING (test code 124 mg/dL 70-110 H = GLUBED) GLUCOSE BEDSIDE [id number] 11:29:00 Test Item Value Reference Range Interpretation Comments GLUCOSE BEDSIDE TESTING (test code 129 mg/dL 70-110 H = GLUBED) GLUCOSE BEDSIDE [id number] 07:25:00 Test Item Value Reference Range Interpretation Comments GLUCOSE BEDSIDE TESTING (test code 149 mg/dL 70-110 H = GLUBED) CBC W/AUTO [id number] 07:04:00 Test Item Value Reference Range Interpretation [...] = NO DIFF/SCN CRITERIA MDIFF) GLUCOSE BEDSIDE [id number] 02:41:00 Test Item Value Reference Range Interpretation Comments GLUCOSE BEDSIDE TESTING (test code 113 mg/dL 70-110 H = GLUBED) GLUCOSE BEDSIDE [id number] 20:36:00 Test Item Value Reference Range Interpretation Comments GLUCOSE BEDSIDE TESTING (test code 158 mg/dL 70-110 H = GLUBED) GLUCOSE BEDSIDE [id number] 15:38:00 Test Item Value Reference Range Interpretation Comments GLUCOSE BEDSIDE TESTING (test code 220 mg/dL 70-110 H = GLUBED) GLUCOSE BEDSIDE [id number] 06:42:00 Test Item Value Reference Range Interpretation Comments GLUCOSE BEDSIDE TESTING (test code 229 mg/dL 70-110 H = GLUBED) URINALYSIS [id number] 15:44:00 Test Item Value Reference Range Interpretation [...] LEUU) Urine Specimen Type: Clean CatchUR HCG [id number] 15:44:00 Test Item Value Reference Range Interpretation Comments UR HCG QUAL (test code = HCGQLU) NEGATIVE NEGATIVE Urine Specimen Type: Clean CatchURINALYSIS [id number] 15:01:00 Test Item Value Reference Range Interpretation [...] LEUU) Urine Specimen Type: Clean CatchUR HCG [id number] 15:01:00 Test Item Value Reference Range Interpretation Comments UR HCG QUAL (test code = HCGQLU) NEGATIVE Urine Specimen Type: Clean CatchCBC W/AUTO [id number] 14:33:00 Test Item Value Reference Range Interpretation [...]
[2022-05-10 14:48] LABS: Absolute Lymphocytes (CBC) 1.6 K/uL (0.7-4.9); Lymphocytes % 14.7 % (15.3-44.8); MCV 91.3 fL (80-100); MPV 8.4 fL (7.6-11.3); RBC Red Blood Cell Count 4.82 M/uL (3.86-4.86)
[2022-05-10 14:51] LABS: Protime INR 1.01
--- NOTE | 2022-05-10 14:56 | RAD REPORT ---
EXAM DESCRIPTION: CT - Chest For Pe Angio - 05/10/2022 2:46 pm CLINICAL HISTORY: Chest pain. elevated ddimer COMPARISON: THORAX WO CONTRAST dated 10/12/2011 TECHNIQUE: CT angiogram of the pulmonary arteries was performed with MIP. All CT scans are performed using dose optimization technique as appropriate and may include automated exposure control or mA/KV adjustment according to patient size. FINDINGS: No evidence of pulmonary thromboembolism. No acute aortic finding demonstrated. The lungs are clear. No significant pericardial or pleural fluid. No concerning bony finding. IMPRESSION: No evidence of pulmonary thromboembolism. No acute lung findings.
[2022-05-10 15:06] LABS: Potassium 4.1 mmol/L (3.5-5.1); Troponin High Sensitivity 3.6 pg/mL (<58.9)
--- NOTE | 2022-05-10 16:45 | RAD REPORT ---
EXAM DESCRIPTION: US - Extrem Venous W Compress Morgan - 05/10/2022 4:16 pm CLINICAL HISTORY: elevated ddimer Bilateral leg edema and swelling. COMPARISON: Extremity Venous Uni Ltd dated 01/04/2020 TECHNIQUE: Real-time sonographic interrogation of the left and right lower extremity deep venous sys tems was performed. FINDINGS: Normal compressibility, flow augmentation, phasic flow and spontaneous flow is identified in both the left and right lower extremity deep venous systems. IMPRESSION: No sonographic evidence of left or right lower extremity deep venous thrombosis.
--- NOTE | 2022-05-10 17:20 | ER ---
Nurse's Notes [facility] Name: Mary Casas Age: 56 yrs Sex: Female : 1965 Arrival Date: 05/10/2022 Time: 13:44 Bed IW2 Private MD: Diagnosis: Chest pain, unspecified Presentation: 05/10 14:03 Chief complaint: Patient states: she was sent by dr. woods because her d-dimer was ap3 elevated in his office, and he would like a CT of her lungs. patient denies any shortness of breath, but reports pain under her left breast, and on her left side of her back. Coronavirus screen: At this time, the client does not indicate any symptoms associated with coronavirus-19. Ebola Screen: No symptoms or risks identified at this time. Initial Sepsis Screen: Does the patient meet any 2 criteria? No. Patient's initial sepsis screen is negative. Does the patient have a suspected source of infection? No. Patient's initial sepsis screen is negative. Risk Assessment: Do you want to hurt yourself or someone else? Patient reports no desire to harm self or others. Onset of symptoms was May 06, 2022. 14:03 Method Of Arrival: Ambulatory ap3 14:03 Acuity: ROSINA 3 ap3 Triage Assessment: 14:08 General: Appears in no apparent distress. Behavior is calm, cooperative, appropriate ap3 for age. Pain: Complains of pain in left breast Pain radiates to left mid back Pain currently is 3 out of 10 on a pain scale. at worst was 7 out of 10 on a pain scale. Neuro: Level of Consciousness is awake, alert, obeys commands, Oriented to person, place, time, situation, Gait is steady, Speech is normal. Cardiovascular: Patient's skin is warm and dry. Respiratory: Airway is patent Respiratory effort is even, unlabored. Historical: - Allergies: 14:07 Codeine; ap3 14:07 Percocet; ap3 - Home Meds: 14:07 Cymbalta 30 mg Oral cpDR 1 cap once daily [Active]; ap3 - PMHx: 14:07 None; ap3 - Immunization history:: Client reports having NOT received the Covid vaccine. Flu vaccine is not up to date. - Social history:: Smoking status: Patient denies any tobacco usage or history of. Patient uses alcohol, occasionally. - Family history:: not pertinent. - Hospitalizations: : No recent hospitalization is reported. Screenin:09 Abuse screen: Denies threats or abuse. Nutritional screening: No deficits noted. ap3 Tuberculosis screening: No symptoms or risk factors identified. Vital Signs: 14:03 Pulse 75; Resp 18; Temp 98.4; Pulse Ox 97% ; Weight 102.06 kg; Height 5 ft. 5 in. ap3 (165.10 cm); Pain 3/10; 14:08 BP 131 / 77; ap3 14:03 Body Mass Index 37.44 (102.06 kg, 165.10 cm) ap3 ED Course: 13:44 Patient arrived in ED. rg4 14:01 Xavi Grimes MD is Attending Physician. rn 14:07 Triage completed. ap3 14:09 Arm band placed on left wrist. ap3 15:00 Initial lab(s) drawn, by ED staff, sent to lab. EKG done, by ED staff, reviewed by mil Grimes MD. Inserted saline lock: 20 gauge in left forearm, using aseptic technique. Blood collected. 15:00 IV discontinued, intact, bleeding controlled, No redness/swelling at site. Pressure jl7 dressing applied. 17:37 No provider procedures requiring assistance completed. jl7 Administered Medications: No medications were administered Outcome: 17:20 Discharge ordered by . rn 17:37 Discharged to home ambulatory. jl7 17:37 Condition: stable 17:37 Discharge instructions given to patient, Instructed on discharge instructions, follow up and referral plans. Demonstrated understanding of instructions, follow-up care. 17:37 Patient left the ED. jl7 Signatures: Xavi Grimes MD MD rn Garcia, Rubi rg4 Rodri Fallon RN RN jl7 Elizabeth Martinez RN RN ap3
--- NOTE | 2022-05-10 17:21 | EDPHYS ---
Physician Documentation [facility] Name: Mary Casas Age: 56 yrs Sex: Female : 1965 Arrival Date: 05/10/2022 Time: 13:44 Bed IW2 Private MD: ED Physician Xavi Grimes HPI: 05/10 15:44 This 56 yrs old Female presents to ER via Ambulatory with complaints of Sent By Ayan rn for CT. 15:44 The patient or guardian reports chest pain that is located primarily in the left rn lateral posterior chest and left lateral anterior chest. 15:45 Onset: 4 day(s) ago. The pain does not radiate. The chest pain is described as sharp. rn Duration: The patient or guardian reports multiple episodes, that are intermittent. Modifying factors: The symptoms are alleviated by nothing. the symptoms are aggravated by nothing. Severity of pain: At its worst the pain was moderate in the emergency department the pain has improved. The patient has not experienced similar symptoms in the past. Pt reports sent by Dr. Botello for CT of chest, seen here this weekend, neg w/u including ct abdomen, sent home as possible shingles but never developed rash. Dr. Botello sent d-dimer and was elevated, so came in for evaluation. . Historical: - Allergies: 14:07 Codeine; ap3 14:07 Percocet; ap3 - Home Meds: 14:07 Cymbalta 30 mg Oral cpDR 1 cap once daily [Active]; ap3 - PMHx: 14:07 None; ap3 - Immunization history:: Client reports having NOT received the Covid vaccine. Flu vaccine is not up to date. - Social history:: Smoking status: Patient denies any tobacco usage or history of. Patient uses alcohol, occasionally. - Family history:: not pertinent. - Hospitalizations: : No recent hospitalization is reported. ROS: 15:46 Constitutional: Negative for fever, chills, and weight loss, Neck: Negative for injury, rn pain, and swelling, Cardiovascular: Negative for palpitations, and edema, Respiratory: Negative for shortness of breath, cough, wheezing, and pleuritic chest pain, Abdomen/GI: Negative for abdominal pain, nausea, vomiting, diarrhea, and constipation, MS/Extremity: Negative for injury and deformity, Skin: Negative for injury, rash, and discoloration, Neuro: Negative for headache, weakness, numbness, tingling, and seizure. Exam: 15:46 Constitutional: This is a well developed, well nourished patient who is awake, alert, rn and in no acute distress. Head/Face: Normocephalic, atraumatic. Cardiovascular: Regular rate and rhythm. No pulse deficits. Respiratory: No increased work of breathing, no retractions or nasal flaring. Abdomen/GI: Soft, non-tender Skin: Warm, dry MS/ Extremity: Pulses equal, no cyanosis. Neuro: Awake and alert, GCS 15 15:53 ECG was reviewed by the Attending Physician. rn Vital Signs: 14:03 Pulse 75; Resp 18; Temp 98.4; Pulse Ox 97% ; Weight 102.06 kg; Height 5 ft. 5 in. ap3 (165.10 cm); Pain 3/10; 14:08 BP 131 / 77; ap3 14:03 Body Mass Index 37.44 (102.06 kg, 165.10 cm) ap3 MDM: 14:01 Patient medically screened. rn 17:18 Differential diagnosis: acute myocardial infarction, acute pericarditis, anxiety, rn coronary artery disease chest wall pain, costochondritis, esophagitis, gastritis, gastroesophageal reflux disease (GERD), pleurisy, pneumothorax, pulmonary embolus. HEART Score: History: Slightly Suspicious (0), ECG: Normal (0), Age: > 45 and < 65 years (1), Risk Factors: No Risk Factors Known (0), Troponin: < or = 1 x Normal Limit (0), Total Score = 1. Data reviewed: vital signs, nurses notes, lab test result(s), EKG, radiologic studies, CT scan, doppler, and as a result, I will discharge patient. Counseling: I had a detailed discussion with the patient and/or guardian regarding: the historical points, exam findings, and any diagnostic results supporting the discharge/admit diagnosis, radiology results, the need for outpatient follow up, to return to the emergency department if symptoms worsen or persist or if there are any questions or concerns that arise at home. Special discussion: I discussed with the patient/guardian in detail that at this point there is no indication for admission to the hospital. It is understood, however, that if the symptoms persist or worsen the patient needs to return immediately for re-evaluation. Based on the history and exam findings, there is no indication for further emergent testing or inpatient evaluation. I discussed with the patient/guardian the need to see the primary care provider for further evaluation of the symptoms. ED course: CT PE neg, u/s legs neg, trop neg, EKG neg, will dc home with pcp f/u as no emergent cause of chest pain identified. . 05/10 14:02 Order name: BMP rn 05/10 14:02 Order name: CBC with Diff rn 05/10 14:02 Order name: NT PRO-BNP rn 05/10 14:02 Order name: PT-INR rn 05/10 14:02 Order name: Ptt, Activated rn 05/10 14:02 Order name: Troponin HS rn 05/10 14:02 Order name: CT Chest For PE Angio rn 05/10 14:32 Order name: Extrem Venous W Compression [place] US rn 05/10 14:50 Order name: CBC with Automated Diff; Complete Time: 17:18 EDMS 05/10 14:51 Order name: Protime (+INR); Complete Time: 17:18 EDMS 05/10 14:51 Order name: PTT, Activated Partial Thromb; Complete Time: 17:18 EDMS 05/10 15:07 Order name: Basic Metabolic Panel; Complete Time: 17:18 EDMS 05/10 15:07 Order name: Troponin High Sensitivity; Complete Time: 17:18 EDMS 05/10 15:07 Order name: NT PRO-BNP; Complete Time: 17:18 EDMS 05/10 14:02 Order name: IV Start; Complete Time: 14:41 rn 05/10 14:02 Order name: EKG - Nurse/Tech; Complete Time: 15:01 rn 05/10 14:02 Order name: EKG; Complete Time: 14:03 rn 05/10 14:02 Order name: Labs collected and sent; Complete Time: 14:40 rn 05/10 14:57 Order name: CT; Complete Time: 17:18 EDMS 05/10 16:46 Order name: US; Complete Time: 17:18 EDMS EC:53 Rate is 65 beats/min. Rhythm is regular. QRS [place] is Normal. CT interval is normal. QRS rn interval is normal. QT interval is normal. No Q waves. T waves are Normal. No ST changes noted. Clinical impression: Normal ECG. Interpreted by me. Reviewed by me. Administered Medications: No medications were administered Disposition Summary: 05/10/22 17:20 Discharge Ordered Location: Home rn Problem: an ongoing problem rn Symptoms: have improved rn Condition: Stable rn Diagnosis - Chest pain, unspecified rn Followup: rn - With: Private Physician - When: As needed - Reason: Recheck today's complaints, Re-evaluation by your physician Discharge Instructions: - Discharge Summary Sheet rn - Nonspecific Chest Pain, Adult rn Forms: - Medication Reconciliation Form rn - Thank You Letter rn - Antibiotic sales and marketing intern - Prescription Opioid Use rn Signatures: Dispatcher [employer] Xavi Alejandra MD MD rn Elizabeth Martinez RN RN ap3
[2022-05-10 18:01] VITALS: TEMP 98.4; O2SAT 97
[2022-05-10 18:06] VITALS: BP 131/77
--- NOTE | 2022-05-11 13:00 | EKG ---
Test Date: 2022-05-10 Test Time: 14:58:20 Tea Leaf Reader: [place] MEASUREMENT RESULTS: Intervals: Rate: 65 KS: 136 QRSD: 86 QT: 442 QTc: 459 [facility]: P: 61 KS: 136 QRS: 71 T: 71 INTERPRETIVE STATEMENTS: Normal sinus rhythm Normal ECG No previous ECG available for comparison Electronically Signed On 05-11-22 12:58:29 BURR PICKER by Rob Watson
== END 2022-05-10 17:37 | disposition home or self-care (01) ==
LOC: ER 13:41
DX: R07.89 Other chest pain (principal); Z88.5 Allergy status to narcotic agent
CPT/HCPCS: 85025; 80048; 36415; 85610; 85730; 84484; 83880; 71275; 93970; Q9967; 93005